=== PATIENT | male | born 1950 | race African-American/Black ===

== ENCOUNTER 2017-08-19 11:41 | Inpatient (IN) | payer MEDICARE, MEDICAID ==
[~2017-08-19] VITALS: Ht 175.3 cm; Wt 86.2 kg
[2017-08-19 12:53] LABS: ANION GAP 9 mmol/L (5-15); BLOOD UREA NITROGEN 13 mg/dL (7-18); CALCIUM 9.2 MG/DL (8.5-10.1); CARBON DIOXIDE 28 MMOL/L (21-32); CHLORIDE 102 MMOL/L (98-107); POTASSIUM 3.7 MMOL/L (3.5-5.1); SODIUM 139 MMOL/L (136-145)
[2017-08-19 12:56] LABS: BASOPHILS % (AUTO) 0.6 % (0.0-2.0); EOSINOPHILS % (AUTO) 1.4 % (0.0-3.0); HEMATOCRIT 41.8 % (42.0-52.0); HEMOGLOBIN 14.6 G/DL (14.2-18.0); MEAN CORPUSCULAR VOLUME 83 FL (80-99); MONOCYTES % (AUTO) 6.1 % (1.0-10.0); NEUTROPHILS % (AUTO) 56.9 % (45.0-75.0); PLATELET COUNT 181 K/UL (150-450); RED BLOOD COUNT 5.06 M/UL (4.70-6.10); RED CELL DISTRIBUTION WIDTH 12.6 % (11.6-14.8); WHITE BLOOD COUNT 12.8 K/UL (4.8-10.8)
[2017-08-19 12:58] VITALS: BP 115/69
[2017-08-19 12:58] LABS: ALANINE AMINOTRANSFERASE 15 U/L (12-78); ALBUMIN 3.6 G/DL (3.4-5.0); ALBUMIN/GLOBULIN RATIO 0.8 (1.0-2.7); ALKALINE PHOSPHATASE 89 U/L (46-116); ASPARTATE AMINO TRANSFERASE 17 U/L (15-37); BILIRUBIN,TOTAL 0.4 MG/DL (0.2-1.0); CREATINE KINASE 153 U/L (26-308)
--- NOTE | 2017-08-19 13:05 | Emergency Room Report ---
History of Present Illness General Chief Complaint: Seizure Source: Patient, EMS Present Illness HPI 67-year-old male brought from intermediate with witnessed seizure Per patient and EMS this is first time seizure states he had a stroke a few months ago with left him with left upper extremity weakness Unknown whether patient currently on antiepileptic He denies biting tongue, urinary incontinence states feels well otherwise Allergies: Coded Allergies: No Known Allergies (Unverified , 08/19/17) Patient History Past Medical History: CVA/TIA Past Surgical History: none Pertinent Family History: none Social History: Denies: smoking, alcohol use, drug use Immunizations: UTD Reviewed Nursing Documentation: PMH: Agreed; PSxH: Agreed Nursing Documentation-PMH Past Medical History: No History, Except For Hx Cardiac Problems: Yes - CAD Hx Hypertension: Yes Hx Cerebrovascular Accident: Yes - Left side Hx Seizures: Yes Review of Systems All Other Systems: negative except mentioned in HPI Physical Exam Vital Signs Date Time Temp Pulse Resp B/P (MAP) Pulse Ox O2 Delivery O2 Flow Rate FiO2 08/19/17 11:36 98.9 73 18 115/69 97 Room Air 99.0 Sp02 EP Interpretation: reviewed, normal General Appearance: normal inspection, well appearing, no apparent distress, alert, GCS 15, non-toxic Head: normocephalic, atraumatic Eyes: bilateral eye PERRL, bilateral eye EOMI ENT: normal ENT inspection, hearing grossly normal, normal pharynx, no angioedema, normal voice, TMs + canals normal, uvula midline, moist mucus membranes Neck: normal inspection, full range of motion, supple, thyroid normal, no meningismus, no bony tend Respiratory: normal inspection, lungs clear, normal breath sounds, no rhonchi, no respiratory distress, no retraction, no accessory muscle use, no wheezing, speaking full sentences Cardiovascular #1: regular rate, rhythm, no edema, no JVD, normal capillary refill Gastrointestinal: normal inspection, normal bowel sounds, non tender, soft, no mass, no peritonitis, non-distended, no guarding, no hernia, no pulsatile mass Genitourinary: no CVA tenderness Musculoskeletal: normal inspection, back normal, normal range of motion, no calf tenderness, pelvis stable, Ashley's Sign negative, other - left upper extremity atrophy Neurologic: normal inspection, alert, oriented x3, responsive, direct care provider III-XII nml as tested, motor strength/tone normal, cerebellar normal, normal gait, speech normal Psychiatric: normal inspection, judgement/insight normal, mood/affect normal, no suicidal/homicidal ideation, no delusions Skin: normal inspection, normal color, no rash Lymphatic: normal inspection, no adenopathy Medical Decision Making Diagnostic Impression: Primary Impression: Seizure disorder ER Course Vital signs stable, afebrile CT on my review shows atrophy, no acute CVA or hemorrhage New onset seizure likely due to previous CVA foci Patient was loaded with Keppra, will likely need to be on antiepileptics now Telemetry admission Per insurance Dr Lord endorsed 104pm EKG Diagnostic Results Rate: normal Rhythm: NSR ST Segments: no acute changes ASA given to the pt in ED: No Rhythm Strip Diag. Results EP Interpretation: yes Rate: 70 Rhythm: NSR, no PVC's, no ectopy Last Vital Signs Date Time Temp Pulse Resp B/P (MAP) Pulse Ox O2 Delivery O2 Flow Rate FiO2 08/19/17 11:36 98.9 73 18 115/69 97 Room Air 99.0 Status: improved Disposition: ADMITTED INPATIENT Condition: Serious Referrals: FEROZ SALCEDO (PCP) NISHA RUIZ M.D. Aug 19, 2017 13:05
--- NOTE | 2017-08-19 13:07 | Diagnostic Imaging Report ---
Indications: Seizure Technique: Spiral acquisitions obtained through the brain. Angled axial and coronal 5 x 5 mm slices were reconstructed. Total dose length product 1442.94 mGycm. CTDI vol(s) 70.38 mGy. Dose reduction achieved using automated exposure control Comparison: None. Findings: There is encephalomalacia in the right posterior temporal and occipital lobe, with resultant ex vacuo dilatation of the atrium and occipital horn of the right lateral ventricle. There is generalized ventriculomegaly as well as enlargement of the extra-axial CSF spaces. There is also encephalomalacia in the high right parietal region. No acute intracranial hemorrhage or edema. No mass effect or midline shift. Intact calvarium. Visualized orbits and sinuses are unremarkable. Impression: chronic and age-related changes, as described Negative for acute bleed or mass effect The CT scanner at [facility] is accredited by the [employer] and the scans are performed using protocols designed to limit radiation exposure to as low as reasonably achievable to attain images of sufficient resolution adequate for diagnostic evaluation.
--- NOTE | 2017-08-19 13:11 | Diagnostic Imaging Report ---
Indication: Cough Technique: One view of the chest Comparison: none Findings: Inspiration is suboptimal. Lungs and pleural spaces are clear. Heart size is normal Impression: Hypoventilatory exam. No acute process
[2017-08-19] MEDS ORDERED: levETIRAcetam 1,000mg/NS100ml 100 ML IVPB ONE (13:15)
[2017-08-19] MEDS ORDERED: ASPIRIN EC500 M1 ORAL (13:25)
[2017-08-19] MEDS ORDERED: LISINOPRIL10 MG ORAL (13:25)
[2017-08-19] MEDS ORDERED: METOPROLOL TART50 MG ORAL (13:25)
[2017-08-19] MEDS ORDERED: CRANBERRY450 M4 PO (13:25)
[2017-08-19] MEDS ORDERED: ATORVASTATIN CA20 MG ORAL (13:25)
[2017-08-19] MEDS ORDERED: AMLODIPINE BESY10 MG ORAL (13:25)
[2017-08-19] MEDS ORDERED: VALPROIC ACID250 MG PO (13:25)
[2017-08-19] MEDS ORDERED: INVEGA SUS234 MG/1.5 IM (13:25)
[2017-08-19] MEDS ORDERED: LEXAPRO20 MG ORAL (13:25)
[2017-08-19] MEDS ORDERED: MILK OF MA400 MG/51 ORAL (13:25)
[2017-08-19] MEDS ORDERED: RISPERDAL1 MG PO (13:25)
[2017-08-19 14:22] LABS: APPEARANCE,URINE CLEAR; BILIRUBIN, URINE NEGATIVE (NEGATIVE); COLOR,URINE PALE YELLOW; GLUCOSE, URINE (UA) NEGATIVE (NEGATIVE); KETONES,URINE NEGATIVE (NEGATIVE); LEUKOCYTE ESTERASE ,URINE NEGATIVE (NEGATIVE); NITRITE,URINE NEGATIVE (NEGATIVE); PH,URINE 8 (4.5-8.0); PROTEIN,URINE NEGATIVE (NEGATIVE); UROBILINOGEN,URINE NORMAL MG/DL (0.0-1.0)
[2017-08-19 14:30] VITALS: BP 109/60
[2017-08-19] MEDS ORDERED: Morphine Sulfate 4mg/ml Inj IVP PRN (14:45)
[2017-08-19] MEDS ORDERED: LORazepam Inj 2mg/ml 1ml IV PRN (14:45)
[2017-08-19] MEDS ORDERED: Miralax 17gm pkt ORAL PRN (14:45)
[2017-08-19] MEDS ORDERED: Zolpidem 5mg tab ORAL PRN (14:45)
[2017-08-19] MEDS ORDERED: Mylanta II UD 30ml ORAL PRN (14:45)
[2017-08-19 18:21] VITALS: BP 128/76
[2017-08-19 20:00] VITALS: BP 129/83
--- NOTE | 2017-08-19 20:15 | Consultation ---
Consult Note Consult Note NEUROLOGY CONSULTATION: Full note dictated #[id number] 67 y/o, RH, BM with PH of HTN and a stroke with left sided weakness a few years ago. He apparently had a seizure that he is unable to describe at his NH today and was thus hospitalized. ON EXAM: Problems with orientation, memory, VSF, HCF Mild dysarthria. Left VF deficit Left VII central Left UE plegia Left LE paresis Left agraphesthesia Left brisker DTRs Extensor left plantar. CT OF BRAIN with old right MCA infarct. IMPRESSION: New onset seizure - type unclear. Etiology most probably irritable right brain focus. REC: EEG Keppra 1 G q 12 hours. Labs for new onset seizure. Mobilize with PT/OT. Arnaud Kaur M.D., M.S.P.Ana. ARNAUD KAUR Aug 19, 2017 20:15
--- NOTE | 2017-08-19 20:45 | History and Physical Report ---
DATE OF ADMISSION: 08/19/2017 TIME: 2 p.m. FLOSSER: 1. Eduardo Kaur M.D. 2. Olga Lidia De Jesus M.D. CHIEF COMPLAINT: New onset of seizure. BRIEF HISTORY: This is a 67-year-old male from [facility] presented for new onset of seizure. He became unresponsive, but shortly thereafter came to [place], diagnosed with the above, and being admitted to telemetry for further care. Currently, calm in bed. No complaint. No chest pain. No shortness of breath. No nausea, vomiting, or diarrhea. PAST MEDICAL HISTORY: Include CVA with left-sided weakness, hypertension, and hyperlipidemia. PAST SURGICAL HISTORY: None. MEDICATIONS: Levetiracetam. ALLERGIES: Denies. SOCIAL HISTORY: No smoking. No alcohol. No intravenous drug abuse. FAMILY HISTORY: Noncontributory. PHYSICAL EXAMINATION: GENERAL: Calm in bed, oriented x2, and in no acute distress. VITAL SIGNS: Temperature is 99, pulse 73, respirations 18, and blood pressure 115/69. CARDIOVASCULAR: No murmurs. LUNGS: Distant and clear. ABDOMEN: Bowel sounds positive. Nontender and nondistended. EXTREMITIES: No cyanosis, clubbing, or edema. NEUROLOGIC: The patient moves all extremities, slightly weak. Left hand contraction noted. LABORATORY AND DIAGNOSTIC DATA: White count 12.8, otherwise CBC is normal. BMP shows BMP is normal. Urine toxicology is less than 2. Serum alcohol less than 3. ASSESSMENT: 1. New onset seizure. 2. CVA with left-sided weakness. 3. Hypertension. 4. Hyperlipidemia. 5. Encephalopathy. 6. Leukocytosis. PLAN: 1. Continue premeds. 2. OT, PT, and dietary evaluation. 3. CBC and BMP in the morning. 4. blood pressure control. 5. Dietary followup. 6. Dr. aKur and Dr. Mendoza to consult. 7. We will continue to follow this patient medically. Biju Santos D.O. DR: JILLIAN JOB#: [id number] CC:
[2017-08-19] MEDS: Heparin 5000 units/ml inj SUBQ SCH (21:54)
--- NOTE | 2017-08-19 22:00 | Consultation ---
DATE OF CONSULTATION: 08/19/2017 NEUROLOGY CONSULTATION CONSULTING PHYSICIAN: Eduardo Kaur M.D. REQUESTING PHYSICIAN: Biju Santos D.O. HISTORY: Mr. Lenard Kam is a 67-year-old, right-handed, black gentleman, who does have a past history of hypertension and a stroke with left-sided weakness a few years ago. He apparently lives in a group home where he was noted to have a seizure. The exact details of the seizure are unknown to us. However, following the seizure, he was sent to the [facility] emergency room. He has not had any further events since the event in his group home. He also denies any prior history of seizures. PAST MEDICAL HISTORY: Significant for high blood pressure and a stroke with left-sided weakness a few years ago. FAMILY HISTORY: Nothing significant as per the patient with no family history of seizures. PERSONAL HISTORY: Home: He lives in a group home. 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 Habits: He used to smoke for numerous years in the past, but has not smoked for few years now. He used to drink beer almost every day in the past, but has stopped drinking. He denies use of any illicit drugs. MEDICATIONS: Present medications include amlodipine, Prinivil, Risperdal, Lipitor, heparin for DVT prophylaxis, Mylanta p.r.n., Ambien p.r.n., Ativan p.r.n., Zofran p.r.n., MiraLAX p.r.n., Tylenol p.r.n. and morphine sulfate p.r.n. PHYSICAL EXAMINATION: GENERAL: He is a well-developed and well-nourished, black gentleman, lying in bed, in no acute distress. VITAL SIGNS: Pulse 65 per minute, blood pressure 128/76 mmHg, respirations 18 per minute, and temperature 97.3 degrees Fahrenheit. HEAD: Normocephalic and atraumatic. EENT: Examination benign. NECK: No neck rigidity was observed. NEUROLOGIC EXAMINATION: MENTAL STATUS EXAMINATION: He was awake and alert. He was oriented to self, hospital, and August 2017. He did not know the name of the hospital or the exact date. He was able to recall 3/3 words immediately, but could only remember 2/3 words in 1 minute and 3 minutes even on the second trial. He was able to remember presidents, Trump and Obama spontaneously, but he needed hints to remember through Reynolds Senior. His mathematical skills were impaired. His visuospatial function was also impaired. SPEECH: He had a mild dysarthria. LANGUAGE: He had anomia for low-frequency words. CRANIAL NERVE EXAMINATION: II: He had a left visual field deficit on confrontation testing. III, IV & : External ocular movements were full and the pupils 3 mm in diameter, equal, round, regular, and reactive to light. V: He had normal facial sensations, and the temporales, masseters, and pterygoids functioned normally. VII: He had a left seventh central facial paresis. VIII: He was able to hear well bilaterally and had no nystagmus. IX: The palate moved symmetrically on phonation. X: He had no hoarseness of voice. XI: The sternocleidomastoids and trapezii functioned normally. XII: The tongue was in the midline without any fasciculations or atrophy. MOTOR SYSTEM: The tone was increased on the left side with a significant degree of spasticity. Examination of muscle mass revealed significant wasting of his left upper extremity with contractures at the fingers and elbow. Examination of power was difficult to perform because of varying degrees of effort, but he had a definite left upper extremity plegia, left lower extremity paresis and mild right lower extremity paresis. SENSORY EXAMINATION: He responded appropriately to deep pain. He also was able to discern between pinprick and light touch. COORDINATION: He performed well on [id number] on the right side. He was unable to perform on the left side. REFLEXES: Trace+ on the right and 1+ on the left at the biceps, triceps, and brachioradialis. Trace+ on the left and 2+ on the right at the knees, 0 at both ankles. The plantar response was flexor on the right and extensor on the left. STANCE & GAIT: Could not be tested. DIAGNOSTIC IMPRESSION: 1. Mr. Lenard Kam is a 67-year-old, right-handed, black gentleman, with a past history of hypertension and cerebrovascular disease with stroke with left-sided weakness a few years ago who apparently had a seizure at his group home on 08/19/2017. The type of seizure is unknown to us, as it has not been described to us. 2. On neurological examination, at this time, he does demonstrate problems with orientation, recent and remote memory, visuospatial function, higher cognitive function, and language. He also has a dysarthria, left visual field deficit, left seventh central facial paresis, left upper greater than lower extremity paresis, mild right lower extremity paresis, left-sided agraphesthesia, brisk deep tendon reflexes on the left compared to the right, but the reflexes are globally diminished and an extensor plantar response on the left side. 3. The CT scan of the brain without contrast reveals an old right middle cerebral artery territory infarct. 4. Laboratory data obtained thus far revealed a CBC with a WBC count elevated to 12,800. A chemistry panel that is relatively benign. Negative urine toxicology screen and negative urine analysis. 5. The patient's history and neurological examination are most compatible with a new onset seizure, most probably focal with secondary generalization. However, the exact type is unclear to us at the exact description of the seizure was not given to us. The most likely etiology for the seizure would be an irritable epileptogenic focus in the area where he had his prior stroke. RECOMMENDATIONS: 1. Agree with management thus far. 2. An EEG will be ordered to evaluate the patient for interictal or ictal phenomena. 3. The patient will be started on Keppra 1 g q.12 h. for seizure prophylaxis. 4. He should be worked up thoroughly for other treatable causes of new onset seizure. 5. He should be mobilized with physical and occupational therapy. Thank you for entrusting me with the care of Mr. Kam. I shall follow him with you. Eduardo Kaur M.D., M.S.P.H. DR: LAUREN JOB#: [id number] MTDCecilia
[2017-08-20] VITALS (7 sets, daily range): BP systolic 113–135; BP diastolic 69–86
[2017-08-20] MEDS ORDERED: LORazepam 1mg tab ORAL PRN (03:45)
--- NOTE | 2017-08-20 05:00 | Consultation ---
DATE OF CONSULTATION: 08/20/2017 INITIAL PSYCHIATRIC EVALUATION CONSULTING PHYSICIAN: Olga Lidia De Jesus M.D. HISTORY OF PRESENT ILLNESS: The patient is a 67-year-old male patient with new onset seizure disorder. This patient came into the hospital very confused and disorganized. He is status post seizure was over and the patient was living in [facility] and he said he randomly had a seizure, passed out, and he said he had no recollection of what happened after he woke up, but he said he has had that before, now he has altered mental status and confusion. His cognition has declined below baseline, secondary to stress of his medical illness. That is why, his attending physician has requested daily psychiatric consultation. He is calm and pleasant on interview, but slightly confused and he does endorse auditory hallucinations and paranoia. SOCIAL HISTORY: Lives in [facility]. Financially supported by [address] and Medicare. MEDICAL PROBLEMS: Include hypertension, hyperlipidemia, and status post CVA. ALLERGIES: He said he has no known drug allergies. SUBSTANCE ABUSE HISTORY: Denies drug and alcohol use. FAMILY PSYCHIATRIC HISTORY: Denies. Pain assessment 0/10. Developmental problems, no known developmental problems. STRENGTHS: He is moderately better and he has a place to live. WEAKNESSES: He has poor support system. MENTAL STATUS EXAMINATION: Appearance is disheveled. Attitude, irritable and agitated. Affect, guarded and restricted. Intellect poor. Mood depressed and anxious. Motor activity, psychomotor retardation. As far as his , this patient's appearance is disheveled. Attitude, irritable and agitated. Thought process is slightly disorganized. Thought content, paranoia. Insight and judgment is poor. DIAGNOSES: 1. Paranoid schizophrenia with acute exacerbation. 2. Medical problems, hyperlipidemia, hypertension, seizure disorder. 3. Psychosocial stressors, financial. PLAN: As far this patient's plan, I am going to treat this patient with Risperdal 1 mg by mouth daily for psychosis, agitation, and mood lability. Also, add Depakote 250 mg twice a day to act as a mood stabilizer, but also prevent seizure prophylaxis. Also, Ativan 1 mg every six hours p.r.n. anxiety and agitation. A 20 minutes of supportive therapy is provided. Chart reviewed and discussed with staff. I would like to thank, Dr. Biju Santos, for this interesting consultation. Olga Lidia De Jesus M.D. DR: GIANNA JOB#: [id number] CC:
[2017-08-20 07:58] LABS: BASOPHILS % (AUTO) 0.5 % (0.0-2.0); EOSINOPHILS % (AUTO) 2.3 % (0.0-3.0); HEMATOCRIT 39.1 % (42.0-52.0); HEMOGLOBIN 14.2 G/DL (14.2-18.0); LYMPHOCYTES % (AUTO) 35.7 % (20.0-45.0); MEAN CORPUSCULAR VOLUME 82 FL (80-99); MONOCYTES % (AUTO) 4.5 % (1.0-10.0); PLATELET COUNT 169 K/UL (150-450); RED BLOOD COUNT 4.76 M/UL (4.70-6.10); RED CELL DISTRIBUTION WIDTH 12.7 % (11.6-14.8); WHITE BLOOD COUNT 8.9 K/UL (4.8-10.8)
[2017-08-20 08:20] LABS: ALANINE AMINOTRANSFERASE 18 U/L (12-78); ALBUMIN 3.4 G/DL (3.4-5.0); ALBUMIN/GLOBULIN RATIO 0.7 (1.0-2.7); ALKALINE PHOSPHATASE 94 U/L (46-116); ANION GAP 5 mmol/L (5-15); ASPARTATE AMINO TRANSFERASE 15 U/L (15-37); BILIRUBIN,TOTAL 0.5 MG/DL (0.2-1.0); BLOOD UREA NITROGEN 13 mg/dL (7-18); CALCIUM 9.1 MG/DL (8.5-10.1); CARBON DIOXIDE 29 MMOL/L (21-32); CHLORIDE 103 MMOL/L (98-107); POTASSIUM 3.3 MMOL/L (3.5-5.1); SODIUM 137 MMOL/L (136-145)
[2017-08-20] MEDS: Depakote ER 250mg tab ORAL SCH ×2 (08:58→21:29)
[2017-08-20] MEDS: Heparin 5000 units/ml inj SUBQ SCH ×2 (09:00→21:30)
[2017-08-20] MEDS ORDERED: Lisinopril 20mg tab ORAL SCH (09:00)
--- NOTE | 2017-08-20 13:00 | Consultation ---
History of Present Illness General Date patient seen: Aug 20, 2017 Chief Complaint: Seizure Referring physician: Dr. Santos Reason for Consultation: emphysema, inpatient management, Present Illness HPI 67-year-old male with hx HTN, CVA, left sided weakness, [facility] resident brought in from [facility] with witnessed seizure. Upon arrival to ER he was awake and asymptomatic. He is admitted to telemetry for further w/u. Allergies: Coded Allergies: No Known Allergies (Unverified , 08/19/17) Medication History Scheduled Amlodipine Besylate* (Amlodipine Besylate*), 10 MG ORAL DAILY, (Reported) Aspirin (Aspirin Ec), 325 MG ORAL DAILY, (Reported) Atorvastatin Calcium* (Atorvastatin Calcium*), 10 MG ORAL BEDTIME, (Reported) Cranberry Fruit Concentrate (Cranberry), 450 MG PO DAILY, (Reported) Escitalopram Oxalate* (Lexapro*), 20 MG ORAL DAILY, (Reported) Lisinopril* (Lisinopril*), 20 MG ORAL DAILY, (Reported) Magnesium Hydroxide* (Milk Of Magnesia*), 30 ML ORAL DAILY, (Reported) Metoprolol Tartrate* (Metoprolol Tartrate*), 50 MG ORAL EVERY 12 HOURS, ( Reported) Paliperidone Palmitate (Invega Sustenna), 234 MG IM every , (Reported) Risperidone* (Risperdal*), 1 MG PO DAILY, (Reported) Valproic Acid (Valproic Acid), 250 MG PO BID, (Reported) Patient History Healthcare decision maker Resuscitation status Full Code Advanced Directive on File Past Medical/Surgical History Past Medical/Surgical History: (1) Hypertension (2) History of CVA (cerebrovascular accident) Review of Systems All Other Systems: negative except mentioned in HPI Physical Exam General Appearance: WD/WN Lines, tubes and drains: peripheral HEENT: normocephalic, atraumatic Neck: non-tender, normal alignment Respiratory/Chest: chest wall non-tender, lungs clear Cardiovascular/Chest: normal peripheral pulses, normal rate Abdomen: normal bowel sounds, non tender Genitourinary/Rectal: normal genital exam Extremities: normal range of motion Skin Exam: normal pigmentation 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 normal Last 24 Hour Vital Signs Date Time Temp Pulse Resp B/P (MAP) Pulse Ox O2 Delivery O2 Flow Rate FiO2 08/20/17 08:58 125/74 08/20/17 08:58 78 125/74 08/20/17 08:00 97.0 78 18 125/74 97 Room Air 97.0 08/20/17 04:00 97.2 68 18 131/69 95 Room Air 97.2 08/20/17 04:00 67 08/20/17 00:00 97.0 66 18 113/69 95 Room Air 97.0 08/20/17 00:00 80 08/19/17 20:00 97.0 71 22 129/83 98 Room Air 97.0 08/19/17 20:00 61 08/19/17 18:21 97.3 65 18 128/76 98 Room Air 97.3 08/19/17 16:00 57 08/19/17 14:30 98.1 65 18 109/60 97 Room Air 98.1 08/19/17 12:58 73 18 Room Air 08/19/17 12:58 99.0 18 115/69 97 Room Air 99.0 Intake and Output 08/19/17 08/20/17 19:00 07:00 Intake Total 0 ml 120 ml Output Total 600 ml Balance 0 ml -480 ml Intake Oral 0 ml 120 ml Output Urine Total 600 ml # Voids 1 # Bowel Movements 1 Laboratory Tests Test 08/19/17 13:50 08/20/17 07:40 Urine Color Pale yellow Urine Appearance Clear Urine pH 8 (4.5-8.0) Urine Specific [place] 1.015 (1.005-1.035) Urine Protein Negative (NEGATIVE) Urine Glucose (UA) Negative (NEGATIVE) Urine Ketones Negative (NEGATIVE) Urine Occult Blood Negative (NEGATIVE) Urine Nitrite Negative (NEGATIVE) Urine Bilirubin Negative (NEGATIVE) Urine Urobilinogen Normal MG/DL (0.0-1.0) Urine Leukocyte Esterase Negative (NEGATIVE) Urine Opiates Screen Negative (NEGATIVE) Urine Barbiturates Screen Negative (NEGATIVE) Phencyclidine (PCP) Screen Negative (NEGATIVE) Urine Amphetamines Screen Negative (NEGATIVE) Urine Benzodiazepines Screen Negative (NEGATIVE) Urine Cocaine Screen Negative (NEGATIVE) Urine Marijuana (THC) Screen Negative (NEGATIVE) White Blood Count 8.9 K/UL (4.8-10.8) Red Blood Count 4.76 M/UL (4.70-6.10) Hemoglobin 14.2 G/DL (14.2-18.0) Hematocrit 39.1 % (42.0-52.0) L Mean Corpuscular Volume 82 FL (80-99) Mean Corpuscular Hemoglobin 29.8 PG (27.0-31.0) Mean Corpuscular Hemoglobin Concent 36.2 G/DL (32.0-36.0) H Red Cell Distribution Width 12.7 % (11.6-14.8) Platelet Count 169 K/UL (150-450) Mean Platelet Volume 8.5 FL (6.5-10.1) Neutrophils (%) (Auto) 57.0 % (45.0-75.0) Lymphocytes (%) (Auto) 35.7 % (20.0-45.0) Monocytes (%) (Auto) 4.5 % (1.0-10.0) Eosinophils (%) (Auto) 2.3 % (0.0-3.0) Basophils (%) (Auto) 0.5 % (0.0-2.0) Sodium Level 137 MMOL/L (136-145) Potassium Level 3.3 MMOL/L (3.5-5.1) L Chloride Level 103 MMOL/L (98-107) Carbon Dioxide Level 29 MMOL/L (21-32) Anion Gap 5 mmol/L (5-15) Blood Urea Nitrogen 13 mg/dL (7-18) Creatinine 1.0 MG/DL (0.55-1.30) Estimat Glomerular Filtration Rate > 60 mL/min (>60) Glucose Level 138 MG/DL (74-106) H Calcium Level 9.1 MG/DL (8.5-10.1) Total Bilirubin 0.5 MG/DL (0.2-1.0) Aspartate Amino Transf (AST/SGOT) 15 U/L (15-37) Alanine Aminotransferase (ALT/SGPT) 18 U/L (12-78) Alkaline Phosphatase 94 U/L (46-116) Total Protein 8.1 G/DL (6.4-8.2) Albumin 3.4 G/DL (3.4-5.0) Globulin 4.7 g/dL Albumin/Globulin Ratio 0.7 (1.0-2.7) L Vitamin D 25-Hydroxy Pending 25-Hydroxy Vitamin D2 Pending 25-Hydroxy Vitamin D3 Pending Rapid Plasma Reagin Pending Height (Feet): 5 Height (Inches): 9.00 Weight (Pounds): 190 Medications Current Medications Medications (Trade) Dose Ordered Sig/Rustam Route PRN Reason Start Time Stop Time Status Last Admin Dose Admin Acetaminophen (Tylenol) 650 mg Q4H PRN ORAL fever 08/19/17 14:45 09/18/17 14:44 Al Hydroxide/Mg Hydroxide (Mylanta II) 30 ml Q6H PRN ORAL dyspepsia 08/19/17 14:45 09/18/17 14:44 Amlodipine Besylate (Norvasc) 10 mg DAILY ORAL 08/20/17 09:00 09/19/17 08:59 08/20/17 08:58 Atorvastatin Calcium (Lipitor) 10 mg BEDTIME ORAL 08/19/17 21:00 09/18/17 20:59 08/19/17 21:55 Dextrose (Dextrose 50%) 25 ml STAT PRN IV BS 60-69mg/dl 08/19/17 15:00 09/18/17 14:59 Dextrose (Dextrose 50%) 50 ml STAT PRN IV BS less than 60mg/dl 08/19/17 14:45 09/18/17 14:44 Divalproex Sodium (Depakote ER) 250 mg EVERY 12 HOURS ORAL 08/20/17 09:00 09/19/17 08:59 08/20/17 08:58 Heparin Sodium (Porcine) (Heparin 5000 units/ml) 5,000 units EVERY 12 HOURS SUBQ 08/19/17 21:00 09/18/17 20:59 08/20/17 09:00 Lisinopril (Prinivil) 20 mg DAILY ORAL 08/20/17 09:00 09/19/17 08:59 08/20/17 08:58 Lorazepam (Ativan 2mg/ml 1ml) 2 mg EVERY HOUR PRN IV seizures 08/19/17 14:45 08/26/17 14:44 Lorazepam (Ativan) 1 mg Q6H PRN ORAL For Anxiety 08/20/17 03:45 08/27/17 03:44 Morphine Sulfate (Morphine Sulfate) 1 mg EVERY 4 HOURS PRN IVP For Pain 08/19/17 14:45 08/26/17 14:44 Ondansetron HCl (Zofran) 4 mg Q6H PRN IVP Nausea & Vomiting 08/19/17 14:45 09/18/17 14:44 Polyethylene Glycol (Miralax) 17 gm HSPRN PRN ORAL Constipation 08/19/17 14:45 09/18/17 14:44 Potassium Chloride (K-Dur) 40 meq ONCE ONCE ORAL 08/20/17 13:00 08/20/17 13:01 08/20/17 12:40 Risperidone (RisperDAL) 1 mg DAILY ORAL 08/20/17 09:00 09/19/17 08:59 08/20/17 08:58 Zolpidem Tartrate (Ambien) 5 mg HSPRN PRN ORAL Insomnia 08/19/17 14:45 08/26/17 14:44 Assessment/Plan Problem List: (1) Seizure disorder ICD Codes: G40.909 - Epilepsy, unspecified, not intractable, without status epilepticus SNOMED: 195966919 (2) COPD (chronic obstructive pulmonary disease) ICD Codes: J44.9 - Chronic obstructive pulmonary disease, unspecified SNOMED: 08134547 (3) Left-sided weakness ICD Codes: R53.1 - Weakness SNOMED: 128108202 (4) Hypertension ICD Codes: I10 - Essential (primary) hypertension SNOMED: 14427953 (5) History of CVA (cerebrovascular accident) ICD Codes: Z86.73 - Personal history of transient ischemic attack (TIA), and cerebral infarction without residual deficits SNOMED: 924465133 Assessment/Plan telemetry monitoring Valium IV prn neuro evaluatin respiratory treatment titrate fio2 to sat of 92% swallow study dvt prophylaxis. Dahlia Lord MD Aug 20, 2017 13:00
--- NOTE | 2017-08-20 14:10 | General Progress Note ---
Assessment/Plan Problem List: (1) Hypertension ICD Codes: I10 - Essential (primary) hypertension SNOMED: 26521297 (2) History of CVA (cerebrovascular accident) ICD Codes: Z86.73 - Personal history of transient ischemic attack (TIA), and cerebral infarction without residual deficits SNOMED: 961008002 (3) COPD (chronic obstructive pulmonary disease) ICD Codes: J44.9 - Chronic obstructive pulmonary disease, unspecified SNOMED: 01140245 (4) Seizure disorder ICD Codes: G40.909 - Epilepsy, unspecified, not intractable, without status epilepticus SNOMED: 138795643 (5) Left-sided weakness ICD Codes: R53.1 - Weakness SNOMED: 222537939 Status: unchanged Assessment/Plan ot pt diet cbc bmp am seizure control dc plan Subjective Constitutional: Reports: weakness Allergies: Coded Allergies: No Known Allergies (Unverified , 08/19/17) All Systems: reviewed and negative except above Subjective calm in bed no seizure last night Objective Last 24 Hour Vital Signs Date Time Temp Pulse Resp B/P (MAP) Pulse Ox O2 Delivery O2 Flow Rate FiO2 08/20/17 08:58 125/74 08/20/17 08:58 78 125/74 08/20/17 08:00 97.0 78 18 125/74 97 Room Air 97.0 08/20/17 04:00 97.2 68 18 131/69 95 Room Air 97.2 08/20/17 04:00 67 08/20/17 00:00 97.0 66 18 113/69 95 Room Air 97.0 08/20/17 00:00 80 08/19/17 20:00 97.0 71 22 129/83 98 Room Air 97.0 08/19/17 20:00 61 08/19/17 18:21 97.3 65 18 128/76 98 Room Air 97.3 08/19/17 16:00 57 08/19/17 14:30 98.1 65 18 109/60 97 Room Air 98.1 Intake and Output 08/19/17 08/20/17 19:00 07:00 Intake Total 0 ml 120 ml Output Total 600 ml Balance 0 ml -480 ml Intake Oral 0 ml 120 ml Output Urine Total 600 ml # Voids 1 # Bowel Movements 1 Laboratory Tests 08/20/17 07:40: White Blood Count 8.9, Red Blood Count 4.76, Hemoglobin 14.2, Hematocrit 39.1L, Mean Corpuscular Volume 82, Mean Corpuscular Hemoglobin 29.8, Mean Corpuscular Hemoglobin Concent 36.2H, Red Cell Distribution Width 12.7, Platelet Count 169, Mean Platelet Volume 8.5, Neutrophils (%) (Auto) 57.0, Lymphocytes (%) (Auto) 35.7, Monocytes (%) (Auto) 4.5, Eosinophils (%) (Auto) 2.3, Basophils (%) (Auto ) 0.5, Sodium Level 137, Potassium Level 3.3L, Chloride Level 103, Carbon Dioxide Level 29, Anion Gap 5, Blood Urea Nitrogen 13, Creatinine 1.0, Estimat Glomerular Filtration Rate > 60, Glucose Level 138H, Calcium Level 9.1, Total Bilirubin 0.5, Aspartate Amino Transf (AST/SGOT) 15, Alanine Aminotransferase ( ALT/SGPT) 18, Alkaline Phosphatase 94, Total Protein 8.1, Albumin 3.4, Globulin 4.7, Albumin/Globulin Ratio 0.7L, Vitamin D 25-Hydroxy [Pending], 25-Hydroxy Vitamin D2 [Pending], 25-Hydroxy Vitamin D3 [Pending], Rapid Plasma Reagin [ Pending] Height (Feet): 5 Height (Inches): 9.00 Weight (Pounds): 190 General Appearance: lethargic EENT: normal ENT inspection Neck: normal alignment Cardiovascular: normal peripheral pulses, normal rate, regular rhythm Respiratory/Chest: chest wall non-tender, lungs clear, normal breath sounds Abdomen: normal bowel sounds, non tender, soft Extremities: normal inspection Edema: no edema noted Arm (L), no edema noted Arm (R), no edema noted Leg (L), no edema noted Leg (R), no edema noted Pedal (L), no edema noted Pedal (R), no edema noted Generalized Neurologic: responsive, motor weakness Skin: normal pigmentation, warm/dry FEROZ SALCEDO Aug 20, 2017 14:10
--- NOTE | 2017-08-20 14:57 | Cardiology Report ---
APPROVED REPORT EKG Measurement Heart [id number] Normal sinus rhythm Nonspecific ST and T wave abnormality Prolonged QT Abnormal ECG
--- NOTE | 2017-08-20 18:37 | Neurology Progress Note ---
Interim History Interim History Interim History Mr. Weinberg feels well. He has had no further seizures. He has tolerated the Keppra well. He denies any new neurologic symptoms. He specifically denies any weakness on one side or the other, numbness on one side or the other, problems with speech, problems with language, or problems with vision. Review of Systems Neuro Review of Systems Benign. Objective Physical Exam Last Vital Signs Date Time Temp Pulse Resp B/P (MAP) Pulse Ox O2 Delivery O2 Flow Rate FiO2 08/20/17 16:00 95 08/20/17 16:00 97.0 20 135/86 98 Room Air 97.0 Laboratory Tests Test 08/20/17 07:40 White Blood Count 8.9 K/UL (4.8-10.8) Red Blood Count 4.76 M/UL (4.70-6.10) Hemoglobin 14.2 G/DL (14.2-18.0) Hematocrit 39.1 % (42.0-52.0) L Mean Corpuscular Volume 82 FL (80-99) Mean Corpuscular Hemoglobin 29.8 PG (27.0-31.0) Mean Corpuscular Hemoglobin Concent 36.2 G/DL (32.0-36.0) H Red Cell Distribution Width 12.7 % (11.6-14.8) Platelet Count 169 K/UL (150-450) Mean Platelet Volume 8.5 FL (6.5-10.1) Neutrophils (%) (Auto) 57.0 % (45.0-75.0) Lymphocytes (%) (Auto) 35.7 % (20.0-45.0) Monocytes (%) (Auto) 4.5 % (1.0-10.0) Eosinophils (%) (Auto) 2.3 % (0.0-3.0) Basophils (%) (Auto) 0.5 % (0.0-2.0) Sodium Level 137 MMOL/L (136-145) Potassium Level 3.3 MMOL/L (3.5-5.1) L Chloride Level 103 MMOL/L (98-107) Carbon Dioxide Level 29 MMOL/L (21-32) Anion Gap 5 mmol/L (5-15) Blood Urea Nitrogen 13 mg/dL (7-18) Creatinine 1.0 MG/DL (0.55-1.30) Estimat Glomerular Filtration Rate > 60 mL/min (>60) Glucose Level 138 MG/DL (74-106) H Calcium Level 9.1 MG/DL (8.5-10.1) Total Bilirubin 0.5 MG/DL (0.2-1.0) Aspartate Amino Transf (AST/SGOT) 15 U/L (15-37) Alanine Aminotransferase (ALT/SGPT) 18 U/L (12-78) Alkaline Phosphatase 94 U/L (46-116) Total Protein 8.1 G/DL (6.4-8.2) Albumin 3.4 G/DL (3.4-5.0) Globulin 4.7 g/dL Albumin/Globulin Ratio 0.7 (1.0-2.7) L Vitamin D 25-Hydroxy Pending 25-Hydroxy Vitamin D2 Pending 25-Hydroxy Vitamin D3 Pending Rapid Plasma Reagin Pending Neurologic Exam Objective PHYSICAL EXAMINATION: GENERAL: He is a well-developed and well-nourished, black gentleman, lying in bed, in no acute distress. HEAD: Normocephalic and atraumatic. EENT: Examination benign. NECK: No neck rigidity was observed. NEUROLOGIC EXAMINATION: MENTAL STATUS EXAMINATION: He was awake and alert. He was oriented to [facility], [facility], and August 2017. He did not know the exact date. He was able to recall 3/3 words immediately, but could only remember 2/3 words in 1 minute and 3 minutes. He was able to remember presidents, Trump and Obama spontaneously, but he needed hints to remember through [employer] Senior. His mathematical skills were impaired. His visuospatial function was also impaired. SPEECH: He had a mild dysarthria. LANGUAGE: He had anomia for low-frequency words. CRANIAL NERVE EXAMINATION: II: He had a left visual field deficit on confrontation testing. III, IV & : External ocular movements were full and the pupils 3 mm in diameter, equal, round, regular, and reactive to light. V: He had normal facial sensations, and the temporales, masseters, and pterygoids functioned normally. VII: He had a left seventh central facial paresis. VIII: He was able to hear well bilaterally and had no nystagmus. IX: The palate moved symmetrically on phonation. X: He had no hoarseness of voice. XI: The sternocleidomastoids and trapezii functioned normally. XII: The tongue was in the midline without any fasciculations or atrophy. MOTOR SYSTEM: The tone was increased on the left side with a significant degree of spasticity. Examination of muscle mass revealed significant wasting of his left upper extremity with contractures at the fingers and elbow. Examination of power was difficult to perform because of varying degrees of effort, but he had a definite left upper extremity plegia, left lower extremity paresis and mild right lower extremity paresis. SENSORY EXAMINATION: He was able to discern between pinprick and light touch. COORDINATION: He performed well on [id number] on the right side. He was unable to perform on the left side. REFLEXES: Trace+ on the right and 1+ on the left at the biceps, triceps, and brachioradialis. Trace+ on the left and 2+ on the right at the knees, 0 at both ankles. The plantar response was flexor on the right and extensor on the left. STANCE & GAIT: Could not be tested. Impression/Recommendations Diagnostic Impression 1. Mr. Lenard Kam is a 67-year-old, right-handed, black gentleman, with a past history of hypertension and cerebrovascular disease with stroke with left- sided weakness a few years ago who apparently had a seizure at his care home on 08/19/2017. The type of seizure is unknown to us, as it has not been described to us. 2. He feels well. He has had no further seizures. He has tolerated the Keppra well. He denies any new neurologic symptoms. 3. On neurological examination, at this time, he does demonstrate problems with orientation, recent and remote memory, visuospatial function, higher cognitive function, and language. He also has a dysarthria, left visual field deficit, left seventh central facial paresis, left upper greater than lower extremity paresis, mild right lower extremity paresis, left-sided agraphesthesia, brisk deep tendon reflexes on the left compared to the right, but the reflexes are globally diminished and an extensor plantar response on the left side. 4. The CT scan of the brain without contrast reveals an old right middle cerebral artery territory infarct. 5. Laboratory data obtained thus far revealed a CBC with a WBC count elevated to 12,800. A chemistry panel that is relatively benign. Negative urine toxicology screen and negative urine analysis. 6. The patient's history and neurological examination are most compatible with a new onset seizure, most probably focal with secondary generalization. However , the exact type is unclear to us at the exact description of the seizure was not given to us. The most likely etiology for the seizure would be an irritable epileptogenic focus in the area where he had his prior stroke. Recommendations 1. Continue present management. 2. Await EEG to evaluate the patient for interictal or ictal phenomena. 3. PT/OT to mobilize. 4. Observe. Arnaud Montana M.D., M.S.Zhang.Ana. ARNAUD MONTANA Aug 20, 2017 18:37
[2017-08-20] MEDS ORDERED: LORazepam Inj 2mg/ml 1ml IV PRN (22:00)
[2017-08-21] MEDS ORDERED: Morphine Sulfate 4mg/ml Inj IVP PRN ×2 (01:00→17:00)
[2017-08-21] MEDS ORDERED: Mylanta II UD 30ml ORAL PRN ×2 (02:45→15:30)
[2017-08-21] MEDS ORDERED: LORazepam 1mg tab ORAL PRN ×2 (03:45→15:45)
[2017-08-21 04:00] VITALS: BP 150/80
[2017-08-21 08:00] VITALS: BP 133/86
[2017-08-21 08:29] LABS: BASOPHILS % (AUTO) 0.5 % (0.0-2.0); EOSINOPHILS % (AUTO) 1.4 % (0.0-3.0); HEMATOCRIT 39.5 % (42.0-52.0); HEMOGLOBIN 13.7 G/DL (14.2-18.0); LYMPHOCYTES % (AUTO) 30.1 % (20.0-45.0); MEAN CORPUSCULAR VOLUME 83 FL (80-99); MONOCYTES % (AUTO) 4.9 % (1.0-10.0); NEUTROPHILS % (AUTO) 63.1 % (45.0-75.0); PLATELET COUNT 166 K/UL (150-450); RED BLOOD COUNT 4.78 M/UL (4.70-6.10); RED CELL DISTRIBUTION WIDTH 12.8 % (11.6-14.8); WHITE BLOOD COUNT 10.2 K/UL (4.8-10.8)
[2017-08-21 08:47] LABS: ANION GAP 10 mmol/L (5-15); BLOOD UREA NITROGEN 15 mg/dL (7-18); CALCIUM 9.3 MG/DL (8.5-10.1); CARBON DIOXIDE 27 MMOL/L (21-32); CHLORIDE 104 MMOL/L (98-107); CREATININE 0.9 MG/DL (0.55-1.30); POTASSIUM 3.4 MMOL/L (3.5-5.1); SODIUM 141 MMOL/L (136-145)
[2017-08-21] MEDS ORDERED: Heparin 5000 units/ml inj SUBQ SCH (09:00)
[2017-08-21] MEDS ORDERED: Depakote ER 250mg tab ORAL SCH (09:00)
[2017-08-21] MEDS ORDERED: Lisinopril 20mg tab ORAL SCH (09:00)
[2017-08-21 11:48] VITALS: BP 147/92
--- NOTE | 2017-08-21 12:03 | Pulmonology Progress Note ---
Assessment/Plan Problems: (1) Tachycardia (2) Seizure disorder (3) COPD (chronic obstructive pulmonary disease) (4) Left-sided weakness (5) Hypertension (6) History of CVA (cerebrovascular accident) Assessment/Plan pt is tachycardic, at 130, regular EkG stat, awaiting for video swallow study monitor BP, symptomatic treatment f/u Neurology recommendations for seizure dvt prophylaxis Subjective ROS Limited/Unobtainable: No Constitutional: Reports: no symptoms HEENT: Repors: no symptoms Respiratory: Reports: no symptoms Allergies: Coded Allergies: No Known Allergies (Unverified , 08/19/17) Objective Last 24 Hour Vital Signs Date Time Temp Pulse Resp B/P (MAP) Pulse Ox O2 Delivery O2 Flow Rate FiO2 08/21/17 11:48 98.6 133 20 147/92 96 Room Air 98.6 08/21/17 08:43 133/86 08/21/17 08:43 110 133/86 08/21/17 08:00 98.3 110 20 133/86 96 Room Air 98.3 08/21/17 04:00 98.2 98 18 150/80 97 Room Air 98.2 08/20/17 22:00 98.3 94 18 128/76 95 Room Air 98.3 08/20/17 20:00 98.1 104 16 132/80 96 98.1 08/20/17 20:00 96 Room Air 08/20/17 20:00 102 08/20/17 16:00 95 08/20/17 16:00 97.0 94 20 135/86 98 Room Air 97.0 08/20/17 12:00 74 08/20/17 12:00 98.1 74 20 134/84 97 Room Air 98.1 Intake and Output 08/20/17 08/21/17 19:00 07:00 Intake Total 480 ml Output Total 300 ml 350 ml Balance 180 ml -350 ml Intake Oral 480 ml Output Urine Total 300 ml 350 ml # Voids 2 General Appearance: WD/WN HEENT: normocephalic, atraumatic Respiratory/Chest: chest wall non-tender, lungs clear, normal breath sounds Cardiovascular: normal rate, regular rhythm, regularly irregular Abdomen: normal bowel sounds, soft, non tender Genitourinary: normal external genitalia Extremities: no clubbing Skin: no lesions 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 Complete 08/19/17 13:50 Rectum VRE Culture - Final NO VANCOMYCIN RESISTANT ENTEROCOCCUS ... Complete Laboratory Tests 08/21/17 07:50: White Blood Count 10.2, Red Blood Count 4.78, Hemoglobin 13.7L, Hematocrit 39.5L , Mean Corpuscular Volume 83, Mean Corpuscular Hemoglobin 28.6, Mean Corpuscular Hemoglobin Concent 34.6, Red Cell Distribution Width 12.8, Platelet Count 166, Mean Platelet Volume 8.1, Neutrophils (%) (Auto) 63.1, Lymphocytes (% ) (Auto) 30.1, Monocytes (%) (Auto) 4.9, Eosinophils (%) (Auto) 1.4, Basophils ( %) (Auto) 0.5, Sodium Level 141, Potassium Level 3.4L, Chloride Level 104, Carbon Dioxide Level 27, Anion Gap 10, Blood Urea Nitrogen 15, Creatinine 0.9, Estimat Glomerular Filtration Rate > 60, Glucose Level 150H, Calcium Level 9.3 Current Medications Medications (Trade) Dose Ordered Sig/Rustam Route PRN Reason Start Time Stop Time Status Last Admin Dose Admin Acetaminophen (Tylenol) 650 mg Q4H PRN ORAL fever 08/20/17 22:45 09/18/17 14:44 Al Hydroxide/Mg Hydroxide (Mylanta II) 30 ml Q6H PRN ORAL dyspepsia 08/21/17 02:45 09/18/17 14:44 Amlodipine Besylate (Norvasc) 10 mg DAILY ORAL 08/21/17 09:00 09/19/17 08:59 08/21/17 08:43 Atorvastatin Calcium (Lipitor) 10 mg BEDTIME ORAL 08/21/17 21:00 09/18/17 20:59 Dextrose (Dextrose 50%) 25 ml STAT PRN IV BS 60-69mg/dl 08/21/17 15:00 09/18/17 14:59 Dextrose (Dextrose 50%) 50 ml STAT PRN IV BS less than 60mg/dl 08/21/17 14:45 09/18/17 14:44 Divalproex Sodium (Depakote ER) 250 mg EVERY 12 HOURS ORAL 08/21/17 09:00 09/19/17 08:59 08/21/17 08:43 Heparin Sodium (Porcine) (Heparin 5000 units/ml) 5,000 units EVERY 12 HOURS SUBQ 08/21/17 09:00 09/18/17 20:59 08/21/17 08:46 Lisinopril (Prinivil) 20 mg DAILY ORAL 08/21/17 09:00 09/19/17 08:59 08/21/17 08:43 Lorazepam (Ativan 2mg/ml 1ml) 2 mg EVERY HOUR PRN IV seizures 08/20/17 22:00 08/26/17 14:44 Lorazepam (Ativan) 1 mg Q6H PRN ORAL For Anxiety 08/21/17 03:45 08/27/17 03:44 Morphine Sulfate (Morphine Sulfate) 1 mg EVERY 4 HOURS PRN IVP For Pain 08/21/17 01:00 08/26/17 14:44 Ondansetron HCl (Zofran) 4 mg Q6H PRN IVP Nausea & Vomiting 08/21/17 02:45 09/18/17 14:44 Polyethylene Glycol (Miralax) 17 gm HSPRN PRN ORAL Constipation 08/21/17 14:45 09/18/17 14:44 Potassium Chloride (K-Dur) 40 meq ONCE ORAL 08/21/17 11:00 08/21/17 12:00 Risperidone (RisperDAL) 1 mg DAILY ORAL 08/21/17 09:00 09/19/17 08:59 08/21/17 08:43 Zolpidem Tartrate (Ambien) 5 mg HSPRN PRN ORAL Insomnia 08/21/17 14:45 08/26/17 14:44 Dahlia Lord MD Aug 21, 2017 12:03
[2017-08-21] MEDS ORDERED: Miralax 17gm pkt ORAL PRN ×2 (14:45→20:00)
[2017-08-21] MEDS ORDERED: Zolpidem 5mg tab ORAL PRN ×2 (14:45→20:00)
--- NOTE | 2017-08-21 14:52 | General Progress Note ---
Assessment/Plan Problem List: (1) Hypertension ICD Codes: I10 - Essential (primary) hypertension SNOMED: 76215094 (2) History of CVA (cerebrovascular accident) ICD Codes: Z86.73 - Personal history of transient ischemic attack (TIA), and cerebral infarction without residual deficits SNOMED: 877385513 (3) COPD (chronic obstructive pulmonary disease) ICD Codes: J44.9 - Chronic obstructive pulmonary disease, unspecified SNOMED: 33465162 (4) Seizure disorder ICD Codes: G40.909 - Epilepsy, unspecified, not intractable, without status epilepticus SNOMED: 088059464 (5) Left-sided weakness ICD Codes: R53.1 - Weakness SNOMED: 228292166 (6) Tachycardia ICD Codes: R00.0 - Tachycardia, unspecified SNOMED: 0603585 Status: stable, progressing, tolerating diet Assessment/Plan ot pt diet cbc bmp am seizure control transfer to [facility] cardio eval Subjective Constitutional: Reports: weakness Allergies: Coded Allergies: No Known Allergies (Unverified , 08/19/17) All Systems: reviewed and negative except above Subjective calm in bed no seizure last night Objective Last 24 Hour Vital Signs Date Time Temp Pulse Resp B/P (MAP) Pulse Ox O2 Delivery O2 Flow Rate FiO2 08/21/17 11:48 98.6 133 20 147/92 96 Room Air 98.6 08/21/17 08:43 133/86 08/21/17 08:43 110 133/86 08/21/17 08:00 98.3 110 20 133/86 96 Room Air 98.3 08/21/17 04:00 98.2 98 18 150/80 97 Room Air 98.2 08/20/17 22:00 98.3 94 18 128/76 95 Room Air 98.3 08/20/17 20:00 98.1 104 16 132/80 96 98.1 08/20/17 20:00 96 Room Air 08/20/17 20:00 102 08/20/17 16:00 95 08/20/17 16:00 97.0 94 20 135/86 98 Room Air 97.0 Intake and Output 08/20/17 08/21/17 18:59 06:59 Intake Total 480 ml Output Total 300 ml 350 ml Balance 180 ml -350 ml Intake Oral 480 ml Output Urine Total 300 ml 350 ml # Voids 2 Laboratory Tests 08/21/17 07:50: White Blood Count 10.2, Red Blood Count 4.78, Hemoglobin 13.7L, Hematocrit 39.5L , Mean Corpuscular Volume 83, Mean Corpuscular Hemoglobin 28.6, Mean Corpuscular Hemoglobin Concent 34.6, Red Cell Distribution Width 12.8, Platelet Count 166, Mean Platelet Volume 8.1, Neutrophils (%) (Auto) 63.1, Lymphocytes (% ) (Auto) 30.1, Monocytes (%) (Auto) 4.9, Eosinophils (%) (Auto) 1.4, Basophils ( %) (Auto) 0.5, Sodium Level 141, Potassium Level 3.4L, Chloride Level 104, Carbon Dioxide Level 27, Anion Gap 10, Blood Urea Nitrogen 15, Creatinine 0.9, Estimat Glomerular Filtration Rate > 60, Glucose Level 150H, Calcium Level 9.3 Height (Feet): 5 Height (Inches): 9.00 Weight (Pounds): 190 General Appearance: lethargic EENT: normal ENT inspection Neck: normal alignment Cardiovascular: tachycardia Respiratory/Chest: chest wall non-tender, lungs clear, normal breath sounds Abdomen: normal bowel sounds, non tender, soft Extremities: normal inspection Edema: no edema noted Arm (L), no edema noted Arm (R), no edema noted Leg (L), no edema noted Leg (R), no edema noted Pedal (L), no edema noted Pedal (R), no edema noted Generalized Neurologic: responsive, motor weakness Skin: normal pigmentation, warm/dry FEROZ SALCEDO Aug 21, 2017 14:52
[2017-08-21] MEDS ORDERED: LORazepam Inj 2mg/ml 1ml IV PRN (15:30)
[2017-08-21 16:00] VITALS: BP 133/84
[2017-08-21 20:00] VITALS: BP 112/76
--- NOTE | 2017-08-21 20:43 | Neurology Progress Note ---
Interim History Interim History ROS Limited/Unobtainable: No Interim History Mr. Weinberg feels well. He continues to be free of seizures. He is tolerating the Keppra well. He denies any new neurologic symptoms. He specifically denies any weakness on one side or the other, numbness on one side or the other, problems with speech, problems with language, or problems with vision. Review of Systems Neuro Review of Systems Benign. Objective Physical Exam Last Vital Signs Date Time Temp Pulse Resp B/P (MAP) Pulse Ox O2 Delivery O2 Flow Rate FiO2 08/21/17 16:00 97.3 124 20 133/84 96 Room Air 97.3 Laboratory Tests Test 08/21/17 07:50 White Blood Count 10.2 K/UL (4.8-10.8) Red Blood Count 4.78 M/UL (4.70-6.10) Hemoglobin 13.7 G/DL (14.2-18.0) L Hematocrit 39.5 % (42.0-52.0) L Mean Corpuscular Volume 83 FL (80-99) Mean Corpuscular Hemoglobin 28.6 PG (27.0-31.0) Mean Corpuscular Hemoglobin Concent 34.6 G/DL (32.0-36.0) Red Cell Distribution Width 12.8 % (11.6-14.8) Platelet Count 166 K/UL (150-450) Mean Platelet Volume 8.1 FL (6.5-10.1) Neutrophils (%) (Auto) 63.1 % (45.0-75.0) Lymphocytes (%) (Auto) 30.1 % (20.0-45.0) Monocytes (%) (Auto) 4.9 % (1.0-10.0) Eosinophils (%) (Auto) 1.4 % (0.0-3.0) Basophils (%) (Auto) 0.5 % (0.0-2.0) Sodium Level 141 MMOL/L (136-145) Potassium Level 3.4 MMOL/L (3.5-5.1) L Chloride Level 104 MMOL/L (98-107) Carbon Dioxide Level 27 MMOL/L (21-32) Anion Gap 10 mmol/L (5-15) Blood Urea Nitrogen 15 mg/dL (7-18) Creatinine 0.9 MG/DL (0.55-1.30) Estimat Glomerular Filtration Rate > 60 mL/min (>60) Glucose Level 150 MG/DL (74-106) H Calcium Level 9.3 MG/DL (8.5-10.1) Neurologic Exam Objective PHYSICAL EXAMINATION: GENERAL: He is a well-developed and well-nourished, black gentleman, lying in bed, in no acute distress. HEAD: Normocephalic and atraumatic. EENT: Examination benign. NECK: No neck rigidity was observed. NEUROLOGIC EXAMINATION: MENTAL STATUS EXAMINATION: He was awake and alert. He was oriented to [facility], [facility], and August 2017. He did not know the exact date. He was able to recall 3/3 words immediately, but could only remember 2/3 words in 1 minute and 3 minutes. He was able to remember presidents, Trump and Obama spontaneously, but he needed hints to remember through [employer]. His mathematical skills were impaired. His visuospatial function was also impaired. SPEECH: He had a mild dysarthria. LANGUAGE: He had anomia for low-frequency words. CRANIAL NERVE EXAMINATION: II: He had a left visual field deficit on confrontation testing. III, IV & : External ocular movements were full and the pupils 3 mm in diameter, equal, round, regular, and reactive to light. V: He had normal facial sensations, and the temporales, masseters, and pterygoids functioned normally. VII: He had a left seventh central facial paresis. VIII: He was able to hear well bilaterally and had no nystagmus. IX: The palate moved symmetrically on phonation. X: He had no hoarseness of voice. XI: The sternocleidomastoids and trapezii functioned normally. XII: The tongue was in the midline without any fasciculations or atrophy. MOTOR SYSTEM: The tone was increased on the left side with a significant degree of spasticity. Examination of muscle mass revealed significant wasting of his left upper extremity with contractures at the fingers and elbow. Examination of power was difficult to perform because of varying degrees of effort, but he had a definite left upper extremity plegia, left lower extremity paresis and mild right lower extremity paresis. SENSORY EXAMINATION: He was able to discern between pinprick and light touch. COORDINATION: He performed well on [id number] on the right side. He was unable to perform on the left side. REFLEXES: Trace+ on the right and 1+ on the left at the biceps, triceps, and brachioradialis. Trace+ on the left and 2+ on the right at the knees, 0 at both ankles. The plantar response was flexor on the right and extensor on the left. STANCE & GAIT: Could not be tested. Impression/Recommendations Diagnostic Impression 1. Mr. Lenard Kam is a 67-year-old, right-handed, black gentleman, with a past history of hypertension and cerebrovascular disease with stroke with left- sided weakness a few years ago who apparently had a seizure at his [place] [facility] on 08/19/2017. The type of seizure is unknown to us, as it has not been described to us. 2. He feels well. He has had no further seizures. He has tolerated the Keppra well. He denies any new neurologic symptoms. 3. On neurological examination, at this time, he does demonstrate problems with orientation, recent and remote memory, visuospatial function, higher cognitive function, and language. He also has a dysarthria, left visual field deficit, left seventh central facial paresis, left upper greater than lower extremity paresis, mild right lower extremity paresis, left-sided agraphesthesia, brisk deep tendon reflexes on the left compared to the right, but the reflexes are globally diminished and an extensor plantar response on the left side. 4. The CT scan of the brain without contrast reveals an old right middle cerebral artery territory infarct. 5. Laboratory data obtained thus far revealed a CBC with a WBC count elevated to 12,800. A chemistry panel that is relatively benign. Negative urine toxicology screen and negative urine analysis. 6. The EEG revealed right hemispheric dysfunction but no inter-ictal phenomena. 7. The patient's history and neurological examination are most compatible with a new onset seizure, most probably focal with secondary generalization. However , the exact type is unclear to us as the exact description of the seizure was not given to us. The most likely etiology for the seizure would be an irritable epileptogenic focus in the area where he had his prior stroke. Recommendations 1. Continue present management. 2. PT/OT to mobilize. 3. Continue Keppra for seizure prophylaxis. 4. Can be discharged from neurologic point of view. Arnaud K. Vincent, M.D., MLudySAlisa. ARNAUD MONTANA Aug 21, 2017 20:43
[2017-08-21] MEDS: Depakote ER 250mg tab ORAL SCH (21:34)
[2017-08-21] MEDS: Heparin 5000 units/ml inj SUBQ SCH (21:35)
[2017-08-22] VITALS: BP 105/67
[2017-08-22 04:00] VITALS: BP 128/79
--- NOTE | 2017-08-22 05:15 | Progress Note ---
DATE: 08/21/2017 SUBJECTIVE: This is a 67-year-old patient with seizure disorder. The patient has new onset of seizures, but he still has some agitation, irritability, and altered mental status, worsened by stress of his medical illness. MENTAL STATUS EXAMINATION: This is a 67-year-old male. Appearance is disheveled. Attitude, irritable and agitated. Affect, guarded and restricted. Intellect poor. Mood, depressed and anxious. Motor activity, psychomotor agitation. Attention span is poor. Orientation x2. Speech is pressured. Thought process, disorganized and illogical. Thought content, auditory hallucinations and paranoid delusions. Insight and judgment is poor. DIAGNOSIS: Paranoid schizophrenia with acute exacerbation. PLAN: Provided 18 to 20 minutes of supportive therapy. The patient is seen and assessed at the bedside. Chart reviewed. Discussed with staff. Seen and assessed at bedside. Olga Lidia De Jesus M.D. DR: SAVI JOB#: [id number] CC:
--- NOTE | 2017-08-22 06:00 | Electroencephalogram ---
DATE OF PROCEDURE: 08/20/2017 EEG REPORT REQUESTING PHYSICIAN: Biju Snatos D.O. HISTORY: This EEG was performed on a 67-year-old gentleman with a history of a prior stroke associated with left-sided weakness, who was hospitalized following a seizure that was poorly described. The purpose of this EEG was to evaluate the patient for ongoing ictal or interictal phenomena and to evaluate the patient for the degree and type of cerebral dysfunction. TECHNICAL NOTE: This EEG was performed on a [employer] with electrodes placed on the scalp according to the International 10-20 system. [id number] and afubb-vb-[id number] montages were used. The EEG was technically satisfactory and was performed while the patient was in an awake state. OBSERVATIONS: In the best awake state, the background activity consisted of 8-8.5 Hz alpha activity over the left hemisphere and 5-6 Hz theta activity over the right hemisphere. Large parts of the tracing were marked by the EMG artifact. No interictal discharges were seen. IMPRESSION: This is an abnormal EEG characterized by slowing of the background in the 5-6 Hz theta range over the right hemisphere. COMMENT: This study is consistent with dysfunction involving the right hemisphere. Please note that the absence of interictal discharges does not rule out a seizure disorder. Eduardo Kaur M.D., M.S.P.H. DR: ELIO JOB#: [id number] [facility]
[2017-08-22 07:41] LABS: BASOPHILS % (AUTO) 0.7 % (0.0-2.0); HEMOGLOBIN 13.9 G/DL (14.2-18.0); LYMPHOCYTES % (AUTO) 42.9 % (20.0-45.0); MEAN CORPUSCULAR VOLUME 83 FL (80-99); MONOCYTES % (AUTO) 8.1 % (1.0-10.0); NEUTROPHILS % (AUTO) 47.4 % (45.0-75.0); PLATELET COUNT 179 K/UL (150-450); RED BLOOD COUNT 4.73 M/UL (4.70-6.10); WHITE BLOOD COUNT 10.5 K/UL (4.8-10.8)
[2017-08-22 07:51] LABS: ANION GAP 7 mmol/L (5-15); BLOOD UREA NITROGEN 16 mg/dL (7-18); CALCIUM 9.8 MG/DL (8.5-10.1); CARBON DIOXIDE 28 MMOL/L (21-32); CHLORIDE 105 MMOL/L (98-107); CREATININE 1.2 MG/DL (0.55-1.30); POTASSIUM 3.8 MMOL/L (3.5-5.1); SODIUM 140 MMOL/L (136-145)
[2017-08-22 08:00] VITALS: BP 108/76
[2017-08-22] MEDS: Depakote ER 250mg tab ORAL SCH ×2 (09:29→21:07)
[2017-08-22] MEDS: Lisinopril 20mg tab ORAL SCH (09:32)
[2017-08-22] MEDS: Heparin 5000 units/ml inj SUBQ SCH ×2 (09:34→21:09)
[2017-08-22 12:00] VITALS: BP 138/79
--- NOTE | 2017-08-22 13:43 | Pulmonology Progress Note ---
Assessment/Plan Problems: (1) Tachycardia (2) Seizure disorder (3) COPD (chronic obstructive pulmonary disease) (4) Left-sided weakness (5) Hypertension (6) History of CVA (cerebrovascular accident) Assessment/Plan pt is tachycardic, at 110, less than yesterday, regular awaiting cardiology evaluation awaiting for video swallow study monitor BP, symptomatic treatment f/u Neurology recommendations for seizure dvt prophylaxis Subjective ROS Limited/Unobtainable: No - no new complians, remains tachycardic Constitutional: Reports: no symptoms Allergies: Coded Allergies: No Known Allergies (Unverified , 08/19/17) Objective Last 24 Hour Vital Signs Date Time Temp Pulse Resp B/P (MAP) Pulse Ox O2 Delivery O2 Flow Rate FiO2 08/22/17 12:00 107 08/22/17 12:00 98.2 116 20 138/79 94 Room Air 98.2 08/22/17 09:32 108/76 08/22/17 09:31 116 108/76 08/22/17 08:00 111 08/22/17 08:00 98.4 115 20 108/76 94 Room Air 98.4 08/22/17 04:00 107 08/22/17 04:00 97.7 110 20 128/79 96 Room Air 97.7 08/22/17 00:00 96 08/22/17 00:00 97.2 99 19 105/67 97 Room Air 97.2 08/21/17 20:00 97.9 135 20 112/76 96 Room Air 97.9 08/21/17 20:00 132 08/21/17 16:00 97.3 124 20 133/84 96 Room Air 97.3 Intake and Output 08/21/17 08/22/17 19:00 07:00 Intake Total 960 ml Output Total 1000 ml Balance -40 ml Intake Oral 960 ml Output Urine Total 1000 ml # Voids 1 # Bowel Movements 2 2 General Appearance: WD/WN HEENT: normocephalic, anicteric Respiratory/Chest: chest wall non-tender, lungs clear Cardiovascular: normal peripheral pulses, normal rate Abdomen: normal bowel sounds, no organomegaly Genitourinary: normal external genitalia Extremities: no clubbing Neurologic/Psychiatric: 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 Complete 08/19/17 13:50 Rectum VRE Culture - Final NO VANCOMYCIN RESISTANT ENTEROCOCCUS ... Complete Laboratory Tests 08/22/17 06:45: White Blood Count 10.5, Red Blood Count 4.73, Hemoglobin 13.9L, Hematocrit 39.0L , Mean Corpuscular Volume 83, Mean Corpuscular Hemoglobin 29.3, Mean Corpuscular Hemoglobin Concent 35.5, Red Cell Distribution Width 13.0, Platelet Count 179, Mean Platelet Volume 8.5, Neutrophils (%) (Auto) 47.4, Lymphocytes (% ) (Auto) 42.9, Monocytes (%) (Auto) 8.1, Eosinophils (%) (Auto) 1.0, Basophils ( %) (Auto) 0.7, Sodium Level 140, Potassium Level 3.8, Chloride Level 105, Carbon Dioxide Level 28, Anion Gap 7, Blood Urea Nitrogen 16, Creatinine 1.2, Estimat Glomerular Filtration Rate > 60, Glucose Level 107H, Calcium Level 9.8 Current Medications Medications (Trade) Dose Ordered Sig/Rustam Route PRN Reason Start Time Stop Time Status Last Admin Dose Admin Acetaminophen (Tylenol) 650 mg Q4H PRN ORAL fever (temp>100.5F) 08/21/17 15:30 09/18/17 15:29 Al Hydroxide/Mg Hydroxide (Mylanta II) 30 ml Q6H PRN ORAL dyspepsia 08/21/17 15:30 09/18/17 15:29 Amlodipine Besylate (Norvasc) 10 mg DAILY ORAL 08/22/17 09:00 09/19/17 08:59 08/22/17 09:31 Atorvastatin Calcium (Lipitor) 10 mg BEDTIME ORAL 08/21/17 21:00 09/18/17 20:59 08/21/17 21:34 Dextrose (Dextrose 50%) 25 ml STAT PRN IV BS 60-69mg/dl 08/21/17 15:30 09/20/17 15:29 Dextrose (Dextrose 50%) 50 ml STAT PRN IV BS less than 60mg/dl 08/21/17 15:30 09/20/17 15:29 Divalproex Sodium (Depakote ER) 250 mg EVERY 12 HOURS ORAL 08/21/17 21:00 09/19/17 08:59 08/22/17 09:29 Heparin Sodium (Porcine) (Heparin 5000 units/ml) 5,000 units EVERY 12 HOURS SUBQ 08/21/17 21:00 09/18/17 20:59 08/22/17 09:34 Lisinopril (Prinivil) 20 mg DAILY ORAL 08/22/17 09:00 09/19/17 08:59 08/22/17 09:32 Lorazepam (Ativan 2mg/ml 1ml) 2 mg Q1H PRN IV seizures 08/21/17 15:30 08/28/17 15:29 Lorazepam (Ativan) 1 mg Q6H PRN ORAL For Anxiety 08/21/17 15:45 08/27/17 03:44 Morphine Sulfate (Morphine Sulfate) 1 mg Q4H PRN IVP For Pain 08/21/17 17:00 08/28/17 16:59 Ondansetron HCl (Zofran) 4 mg Q6H PRN IVP Nausea & Vomiting 08/21/17 15:30 09/18/17 15:29 Polyethylene Glycol (Miralax) 17 gm HSPRN PRN ORAL Constipation 08/21/17 20:00 09/20/17 19:59 Risperidone (RisperDAL) 1 mg DAILY ORAL 08/22/17 09:00 09/19/17 08:59 08/22/17 09:27 Zolpidem Tartrate (Ambien) 5 mg HSPRN PRN ORAL Insomnia 08/21/17 20:00 08/28/17 19:59 Dahlia Lord MD Aug 22, 2017 13:43
[2017-08-22 16:00] VITALS: BP 124/77
--- NOTE | 2017-08-22 16:01 | General Progress Note ---
Assessment/Plan Problem List: (1) Hypertension ICD Codes: I10 - Essential (primary) hypertension SNOMED: 08832375 (2) History of CVA (cerebrovascular accident) ICD Codes: Z86.73 - Personal history of transient ischemic attack (TIA), and cerebral infarction without residual deficits SNOMED: 124319772 (3) COPD (chronic obstructive pulmonary disease) ICD Codes: J44.9 - Chronic obstructive pulmonary disease, unspecified SNOMED: 55946625 (4) Seizure disorder ICD Codes: G40.909 - Epilepsy, unspecified, not intractable, without status epilepticus SNOMED: 304874641 (5) Left-sided weakness ICD Codes: R53.1 - Weakness SNOMED: 967291282 (6) Tachycardia ICD Codes: R00.0 - Tachycardia, unspecified SNOMED: 8486201 Status: stable, progressing, tolerating diet Assessment/Plan ot pt diet cbc bmp am seizure control dc plan if cardio clears Subjective Constitutional: Reports: weakness Allergies: Coded Allergies: No Known Allergies (Unverified , 08/19/17) All Systems: reviewed and negative except above Subjective calm in bed no seizure last night Objective Last 24 Hour Vital Signs Date Time Temp Pulse Resp B/P (MAP) Pulse Ox O2 Delivery O2 Flow Rate FiO2 08/22/17 12:00 107 08/22/17 12:00 98.2 116 20 138/79 94 Room Air 98.2 08/22/17 09:32 108/76 08/22/17 09:31 116 108/76 08/22/17 08:00 111 08/22/17 08:00 98.4 115 20 108/76 94 Room Air 98.4 08/22/17 04:00 107 08/22/17 04:00 97.7 110 20 128/79 96 Room Air 97.7 08/22/17 00:00 96 08/22/17 00:00 97.2 99 19 105/67 97 Room Air 97.2 08/21/17 20:00 97.9 135 20 112/76 96 Room Air 97.9 08/21/17 20:00 132 Intake and Output 08/21/17 08/22/17 19:00 07:00 Intake Total 960 ml Output Total 1000 ml Balance -40 ml Intake Oral 960 ml Output Urine Total 1000 ml # Voids 1 # Bowel Movements 2 2 Laboratory Tests 08/22/17 06:45: White Blood Count 10.5, Red Blood Count 4.73, Hemoglobin 13.9L, Hematocrit 39.0L , Mean Corpuscular Volume 83, Mean Corpuscular Hemoglobin 29.3, Mean Corpuscular Hemoglobin Concent 35.5, Red Cell Distribution Width 13.0, Platelet Count 179, Mean Platelet Volume 8.5, Neutrophils (%) (Auto) 47.4, Lymphocytes (% ) (Auto) 42.9, Monocytes (%) (Auto) 8.1, Eosinophils (%) (Auto) 1.0, Basophils ( %) (Auto) 0.7, Sodium Level 140, Potassium Level 3.8, Chloride Level 105, Carbon Dioxide Level 28, Anion Gap 7, Blood Urea Nitrogen 16, Creatinine 1.2, Estimat Glomerular Filtration Rate > 60, Glucose Level 107H, Calcium Level 9.8 Height (Feet): 5 Height (Inches): 9.00 Weight (Pounds): 190 General Appearance: lethargic EENT: normal ENT inspection Neck: normal alignment Cardiovascular: normal peripheral pulses, regular rhythm, tachycardia Respiratory/Chest: chest wall non-tender, lungs clear, normal breath sounds Abdomen: normal bowel sounds, non tender, soft Extremities: normal inspection Edema: no edema noted Arm (L), no edema noted Arm (R), no edema noted Leg (L), no edema noted Leg (R), no edema noted Pedal (L), no edema noted Pedal (R), no edema noted Generalized Neurologic: responsive, motor weakness Skin: normal pigmentation, warm/dry FEROZ SALCEDO Aug 22, 2017 16:01
--- NOTE | 2017-08-22 19:45 | Progress Note ---
DATE: 08/22/2017 HISTORY: The patient is a 67-year-old male patient admitted with complaints of seizures. This patient is confused and disorganized. His mood is labile. He has got no logical plan for his own self-care. I am going to continue to treat him with psychotropic medications, stabilize his mood, and encourage him to interact appropriately with staff and other patients. He has still got confusion, agitation, and disorganized thought process worsened by stress of his medical illness. That is why, his attending has requested daily psychiatric consultation. MENTAL STATUS EXAMINATION: The patient is a 67-year-old male. Appearance, disheveled. Irritable and agitated. Affect, guarded and restricted. Intellect poor. Mood, depressed and anxious. Motor activity, psychomotor agitation. Attention span is poor. Orientation x3. Speech is pressured. Thought process, disorganized and illogical. Thought content, auditory hallucinations and paranoid delusions. Insight and judgement is poor. DIAGNOSIS: Diagnosis is paranoid schizophrenia. PLAN: Continue Risperdal 1 mg p.o. b.i.d. 18 to 20 minutes of supportive therapy was provided. Chart reviewed. Discussed with staff. Seen and assessed at bedside. Olga Lidia De Jesus M.D. DR: JACINTO JOB#: [id number] CC:
[2017-08-22 20:00] VITALS: BP 129/74
--- NOTE | 2017-08-22 20:48 | Cardiology Progress Note ---
Assessment/Plan Assessment/Plan The patient is seen and examined, full consult note will be dictated shortly. Objective Last 24 Hour Vital Signs Date Time Temp Pulse Resp B/P (MAP) Pulse Ox O2 Delivery O2 Flow Rate FiO2 08/22/17 20:00 97.9 118 19 129/74 94 Room Air 97.9 08/22/17 20:00 132 08/22/17 16:00 97.0 110 20 124/77 95 Room Air 97.0 08/22/17 16:00 110 08/22/17 12:00 107 08/22/17 12:00 98.2 116 20 138/79 94 Room Air 98.2 08/22/17 09:32 108/76 08/22/17 09:31 116 108/76 08/22/17 08:00 111 08/22/17 08:00 98.4 115 20 108/76 94 Room Air 98.4 08/22/17 04:00 107 08/22/17 04:00 97.7 110 20 128/79 96 Room Air 97.7 08/22/17 00:00 96 08/22/17 00:00 97.2 99 19 105/67 97 Room Air 97.2 Intake and Output 08/21/17 08/22/17 19:00 07:00 Intake Total 960 ml Output Total 1000 ml Balance -40 ml Intake Oral 960 ml Output Urine Total 1000 ml # Voids 1 # Bowel Movements 2 2 Laboratory Tests Test 08/22/17 06:45 White Blood Count 10.5 K/UL (4.8-10.8) Red Blood Count 4.73 M/UL (4.70-6.10) Hemoglobin 13.9 G/DL (14.2-18.0) L Hematocrit 39.0 % (42.0-52.0) L Mean Corpuscular Volume 83 FL (80-99) Mean Corpuscular Hemoglobin 29.3 PG (27.0-31.0) Mean Corpuscular Hemoglobin Concent 35.5 G/DL (32.0-36.0) Red Cell Distribution Width 13.0 % (11.6-14.8) Platelet Count 179 K/UL (150-450) Mean Platelet Volume 8.5 FL (6.5-10.1) Neutrophils (%) (Auto) 47.4 % (45.0-75.0) Lymphocytes (%) (Auto) 42.9 % (20.0-45.0) Monocytes (%) (Auto) 8.1 % (1.0-10.0) Eosinophils (%) (Auto) 1.0 % (0.0-3.0) Basophils (%) (Auto) 0.7 % (0.0-2.0) Sodium Level 140 MMOL/L (136-145) Potassium Level 3.8 MMOL/L (3.5-5.1) Chloride Level 105 MMOL/L (98-107) Carbon Dioxide Level 28 MMOL/L (21-32) Anion Gap 7 mmol/L (5-15) Blood Urea Nitrogen 16 mg/dL (7-18) Creatinine 1.2 MG/DL (0.55-1.30) Estimat Glomerular Filtration Rate > 60 mL/min (>60) Glucose Level 107 MG/DL (74-106) H Calcium Level 9.8 MG/DL (8.5-10.1) EVELIN BOSE Aug 22, 2017 20:48
--- NOTE | 2017-08-22 21:13 | Cardiology Report ---
APPROVED REPORT EKG Measurement Heart [id number] Sin[address] Nonspecific ST and T wave abnormality Abnormal ECG
--- NOTE | 2017-08-22 21:44 | Neurology Progress Note ---
Interim History Interim History Interim History Mr. Weinberg feels better. He continues to be free of seizures. He is tolerating the Keppra well. He denies any new neurologic symptoms. He specifically denies any weakness on one side or the other, numbness on one side or the other, problems with speech, problems with language, or problems with vision. Review of Systems Neuro Review of Systems Benign. Objective Physical Exam Last Vital Signs Date Time Temp Pulse Resp B/P (MAP) Pulse Ox O2 Delivery O2 Flow Rate FiO2 08/22/17 20:00 97.9 118 19 129/74 94 Room Air 97.9 Laboratory Tests Test 08/22/17 06:45 White Blood Count 10.5 K/UL (4.8-10.8) Red Blood Count 4.73 M/UL (4.70-6.10) Hemoglobin 13.9 G/DL (14.2-18.0) L Hematocrit 39.0 % (42.0-52.0) L Mean Corpuscular Volume 83 FL (80-99) Mean Corpuscular Hemoglobin 29.3 PG (27.0-31.0) Mean Corpuscular Hemoglobin Concent 35.5 G/DL (32.0-36.0) Red Cell Distribution Width 13.0 % (11.6-14.8) Platelet Count 179 K/UL (150-450) Mean Platelet Volume 8.5 FL (6.5-10.1) Neutrophils (%) (Auto) 47.4 % (45.0-75.0) Lymphocytes (%) (Auto) 42.9 % (20.0-45.0) Monocytes (%) (Auto) 8.1 % (1.0-10.0) Eosinophils (%) (Auto) 1.0 % (0.0-3.0) Basophils (%) (Auto) 0.7 % (0.0-2.0) Sodium Level 140 MMOL/L (136-145) Potassium Level 3.8 MMOL/L (3.5-5.1) Chloride Level 105 MMOL/L (98-107) Carbon Dioxide Level 28 MMOL/L (21-32) Anion Gap 7 mmol/L (5-15) Blood Urea Nitrogen 16 mg/dL (7-18) Creatinine 1.2 MG/DL (0.55-1.30) Estimat Glomerular Filtration Rate > 60 mL/min (>60) Glucose Level 107 MG/DL (74-106) H Calcium Level 9.8 MG/DL (8.5-10.1) Neurologic Exam Objective PHYSICAL EXAMINATION: GENERAL: He is a well-developed and well-nourished, black gentleman, lying in bed, in no acute distress. HEAD: Normocephalic and atraumatic. EENT: Examination benign. NECK: No neck rigidity was observed. NEUROLOGIC EXAMINATION: MENTAL STATUS EXAMINATION: He was awake and alert. He was oriented to [facility] and [facility] only. He was able to recall 3/3 words immediately, but could only remember 2/3 words in 1 minute and 3 minutes. He was able to remember presidents, Trump and Obama spontaneously, but he needed hints to remember through Reynolds Senior. His mathematical skills were impaired. His visuospatial function was also impaired. SPEECH: He had a mild dysarthria. LANGUAGE: He had anomia for low-frequency words. CRANIAL NERVE EXAMINATION: II: He had a left visual field deficit on confrontation testing. III, IV & : External ocular movements were full and the pupils 3 mm in diameter, equal, round, regular, and reactive to light. V: He had normal facial sensations, and the temporales, masseters, and pterygoids functioned normally. VII: He had a left seventh central facial paresis. VIII: He was able to hear well bilaterally and had no nystagmus. IX: The palate moved symmetrically on phonation. X: He had no hoarseness of voice. XI: The sternocleidomastoids and trapezii functioned normally. XII: The tongue was in the midline without any fasciculations or atrophy. MOTOR SYSTEM: The tone was increased on the left side with a significant degree of spasticity. Examination of muscle mass revealed significant wasting of his left upper extremity with contractures at the fingers and elbow. Examination of power was difficult to perform because of varying degrees of effort, but he had a definite left upper extremity plegia, left lower extremity paresis and mild right lower extremity paresis. SENSORY EXAMINATION: He was able to discern between pinprick and light touch. COORDINATION: He performed well on [id number] on the right side. He was unable to perform on the left side. REFLEXES: Trace+ on the right and 1+ on the left at the biceps, triceps, and brachioradialis. Trace+ on the left and 2+ on the right at the knees, 0 at both ankles. The plantar response was flexor on the right and extensor on the left. STANCE & GAIT: Could not be tested. Impression/Recommendations Diagnostic Impression 1. Mr. Lenard Kam is a 67-year-old, right-handed, black gentleman, with a past history of hypertension and cerebrovascular disease with stroke with left- sided weakness a few years ago who apparently had a seizure at his residential on 08/19/2017. The type of seizure is unknown to us, as it has not been described to us. 2. He feels well. He has had no further seizures. He has tolerated the Keppra well. He denies any new neurologic symptoms. 3. On neurological examination, at this time, he does demonstrate problems with orientation, recent and remote memory, visuospatial function, higher cognitive function, and language. He also has a dysarthria, left visual field deficit, left seventh central facial paresis, left upper greater than lower extremity paresis, mild right lower extremity paresis, left-sided agraphesthesia, brisk deep tendon reflexes on the left compared to the right, but the reflexes are globally diminished and an extensor plantar response on the left side. 4. The CT scan of the brain without contrast reveals an old right middle cerebral artery territory infarct. 5. Laboratory data obtained thus far revealed a CBC with a WBC count elevated to 12,800. A chemistry panel that is relatively benign. Negative urine toxicology screen and negative urine analysis. 6. The EEG revealed right hemispheric dysfunction but no inter-ictal phenomena. 7. The patient's history and neurological examination are most compatible with a new onset seizure, most probably focal with secondary generalization. However , the exact type is unclear to us as the exact description of the seizure was not given to us. The most likely etiology for the seizure would be an irritable epileptogenic focus in the area where he had his prior stroke. Recommendations 1. Continue present management. 2. PT/OT to mobilize. 3. Continue Keppra for seizure prophylaxis. 4. Can be discharged from neurologic point of view. Arnaud Montana M.D., M.S.P.H. ARNAUD MONTANA Aug 22, 2017 21:44
[2017-08-23] VITALS: BP 114/76
[2017-08-23 04:00] VITALS: BP 122/64
[2017-08-23 06:20] LABS: BASOPHILS % (AUTO) 0.6 % (0.0-2.0); HEMATOCRIT 37.3 % (42.0-52.0); MEAN CORPUSCULAR VOLUME 83 FL (80-99); MONOCYTES % (AUTO) 8.4 % (1.0-10.0); PLATELET COUNT 174 K/UL (150-450); RED BLOOD COUNT 4.51 M/UL (4.70-6.10); RED CELL DISTRIBUTION WIDTH 13.1 % (11.6-14.8); WHITE BLOOD COUNT 8.7 K/UL (4.8-10.8)
[2017-08-23 06:43] LABS: ANION GAP 6 mmol/L (5-15); BLOOD UREA NITROGEN 17 mg/dL (7-18); CALCIUM 9.4 MG/DL (8.5-10.1); CARBON DIOXIDE 28 MMOL/L (21-32); CHLORIDE 107 MMOL/L (98-107); CREATININE 1.3 MG/DL (0.55-1.30); SODIUM 141 MMOL/L (136-145)
[2017-08-23 08:00] VITALS: BP 133/78
--- NOTE | 2017-08-23 08:21 | Cardiology Report ---
APPROVED REPORT EXAM: Three-dimensional, Two-dimensional and M-mode echocardiogram with Doppler and color Doppler. INDICATION LV FUNCTION M-Mode DIMENSIONS IVSd1.2 (0.7-1.1cm)Left Atrium (MM)2.5 (1.6-4.0cm) LVDd3.5 (3.5-5.6cm)Aortic Root2.5 (2.0-3.7cm) PWd1.3 (0.7-1.1cm)Aortic Cusp Exc.1.7 (1.5-2.0cm) IVSs1.6 cm LVDs2.5 (2.5-4.0cm) PWs1.5 cm Technically difficult study due to poor acoustical windows. Left ventricular ejection fraction estimated to be 60 %. No evidence of ventricular hypertrophy . No evidence of pericardial effusion. All other cardiac chamber sizes are within normal limits. Focal aortic valve sclerosis with adequate cusp excursion. Mildly Thickened mitral valve leaflets with normal excursion. Mildly Mitral annulus and aortic root calcification. Pulmonic valve not well visualized. Normal tricuspid valve structure. IVC at size 2.1 with physiological collapse . A color flow and spectral Doppler study was performed and revealed: No aortic regurgitation. Trace mitral regurgitation. Mitral diastolic velocities suggest reduced left ventricular relaxation c/w mild LV diastolic dysfunction (Grade I ). Trace tricuspid regurgitation. Tricuspid systolic velocities suggests peak right ventricular systolic pressure of 12mmhg .
[2017-08-23] MEDS: Depakote ER 250mg tab ORAL SCH ×2 (08:46→20:53)
[2017-08-23] MEDS: Lisinopril 20mg tab ORAL SCH (08:47)
[2017-08-23] MEDS: Heparin 5000 units/ml inj SUBQ SCH ×2 (08:48→20:54)
[2017-08-23 12:00] VITALS: BP 141/75
--- NOTE | 2017-08-23 12:46 | General Progress Note ---
Assessment/Plan Problem List: (1) Hypertension ICD Codes: I10 - Essential (primary) hypertension SNOMED: 61899923 (2) History of CVA (cerebrovascular accident) ICD Codes: Z86.73 - Personal history of transient ischemic attack (TIA), and cerebral infarction without residual deficits SNOMED: 460710330 (3) COPD (chronic obstructive pulmonary disease) ICD Codes: J44.9 - Chronic obstructive pulmonary disease, unspecified SNOMED: 04829866 (4) Seizure disorder ICD Codes: G40.909 - Epilepsy, unspecified, not intractable, without status epilepticus SNOMED: 954788186 (5) Left-sided weakness ICD Codes: R53.1 - Weakness SNOMED: 583486947 (6) Tachycardia ICD Codes: R00.0 - Tachycardia, unspecified SNOMED: 1447495 Status: progressing, tolerating diet Assessment/Plan ot pt diet cbc bmp am seizure control dc plan if cardio clears Subjective Constitutional: Reports: weakness Allergies: Coded Allergies: No Known Allergies (Unverified , 08/19/17) All Systems: reviewed and negative except above Subjective calm in bed eating Objective Last 24 Hour Vital Signs Date Time Temp Pulse Resp B/P (MAP) Pulse Ox O2 Delivery O2 Flow Rate FiO2 08/23/17 12:00 97.5 106 21 141/75 97 Room Air 97.5 08/23/17 08:47 122/64 08/23/17 08:47 85 122/64 08/23/17 08:00 101 08/23/17 08:00 97.7 105 20 133/78 96 Room Air 97.7 105 08/23/17 04:00 98.0 86 22 122/64 97 Room Air 98.0 08/23/17 04:00 85 08/23/17 00:00 97.4 100 20 114/76 100 Room Air 97.4 08/22/17 20:00 97.9 118 19 129/74 94 Room Air 97.9 08/22/17 20:00 132 08/22/17 16:00 97.0 110 20 124/77 95 Room Air 97.0 08/22/17 16:00 110 Intake and Output 08/22/17 08/23/17 19:00 07:00 Intake Total 600 ml Output Total 200 ml Balance 600 ml -200 ml Other 600 ml Output Urine Total 200 ml # Voids 2 # Bowel Movements 1 2 Laboratory Tests 08/23/17 05:45: White Blood Count 8.7, Red Blood Count 4.51L, Hemoglobin 13.0L, Hematocrit 37.3L , Mean Corpuscular Volume 83, Mean Corpuscular Hemoglobin 28.9, Mean Corpuscular Hemoglobin Concent 34.9, Red Cell Distribution Width 13.1, Platelet Count 174, Mean Platelet Volume 8.2, Neutrophils (%) (Auto) 49.0, Lymphocytes (% ) (Auto) 39.0, Monocytes (%) (Auto) 8.4, Eosinophils (%) (Auto) 3.0, Basophils ( %) (Auto) 0.6, Sodium Level 141, Potassium Level 4.0, Chloride Level 107, Carbon Dioxide Level 28, Anion Gap 6, Blood Urea Nitrogen 17, Creatinine 1.3, Estimat Glomerular Filtration Rate > 60, Glucose Level 97, Calcium Level 9.4 Height (Feet): 5 Height (Inches): 9.00 Weight (Pounds): 190 General Appearance: lethargic EENT: normal ENT inspection Neck: normal alignment Cardiovascular: normal peripheral pulses, normal rate, regular rhythm Respiratory/Chest: chest wall non-tender, lungs clear, normal breath sounds Abdomen: normal bowel sounds, non tender, soft Extremities: normal inspection Edema: no edema noted Arm (L), no edema noted Arm (R), no edema noted Leg (L), no edema noted Leg (R), no edema noted Pedal (L), no edema noted Pedal (R), no edema noted Generalized Neurologic: motor weakness Skin: normal pigmentation, warm/dry FEROZ SALCEDO Aug 23, 2017 12:46
--- NOTE | 2017-08-23 12:52 | Pulmonology Progress Note ---
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 ROS Limited/Unobtainable: No Constitutional: Reports: no symptoms HEENT: Repors: no symptoms Respiratory: Reports: no symptoms Allergies: Coded Allergies: No Known Allergies (Unverified , 08/19/17) Objective Last 24 Hour Vital Signs Date Time Temp Pulse Resp B/P (MAP) Pulse Ox O2 Delivery O2 Flow Rate FiO2 08/23/17 12:00 97.5 106 21 141/75 97 Room Air 97.5 08/23/17 08:47 122/64 08/23/17 08:47 85 122/64 08/23/17 08:00 101 08/23/17 08:00 97.7 105 20 133/78 96 Room Air 97.7 105 08/23/17 04:00 98.0 86 22 122/64 97 Room Air 98.0 08/23/17 04:00 85 08/23/17 00:00 97.4 100 20 114/76 100 Room Air 97.4 08/22/17 20:00 97.9 118 19 129/74 94 Room Air 97.9 08/22/17 20:00 132 08/22/17 16:00 97.0 110 20 124/77 95 Room Air 97.0 08/22/17 16:00 110 Intake and Output 08/22/17 08/23/17 19:00 07:00 Intake Total 600 ml Output Total 200 ml Balance 600 ml -200 ml Other 600 ml Output Urine Total 200 ml # Voids 2 # Bowel Movements 1 2 General Appearance: WD/WN HEENT: normocephalic, atraumatic Respiratory/Chest: chest wall non-tender, lungs clear Cardiovascular: normal peripheral pulses, normal rate Abdomen: normal bowel sounds, soft, non tender Genitourinary: normal external genitalia Extremities: no cyanosis Skin: no ulcers Neurologic/Psychiatric: no motor/sensory deficits Laboratory Tests 08/23/17 05:45: White Blood Count 8.7, Red Blood Count 4.51L, Hemoglobin 13.0L, Hematocrit 37.3L , Mean Corpuscular Volume 83, Mean Corpuscular Hemoglobin 28.9, Mean Corpuscular Hemoglobin Concent 34.9, Red Cell Distribution Width 13.1, Platelet Count 174, Mean Platelet Volume 8.2, Neutrophils (%) (Auto) 49.0, Lymphocytes (% ) (Auto) 39.0, Monocytes (%) (Auto) 8.4, Eosinophils (%) (Auto) 3.0, Basophils ( %) (Auto) 0.6, Sodium Level 141, Potassium Level 4.0, Chloride Level 107, Carbon Dioxide Level 28, Anion Gap 6, Blood Urea Nitrogen 17, Creatinine 1.3, Estimat Glomerular Filtration Rate > 60, Glucose Level 97, Calcium Level 9.4 Current Medications Medications (Trade) Dose Ordered Sig/Rustam Route PRN Reason Start Time Stop Time Status Last Admin Dose Admin Acetaminophen (Tylenol) 650 mg Q4H PRN ORAL fever (temp>100.5F) 08/21/17 15:30 09/18/17 15:29 Al Hydroxide/Mg Hydroxide (Mylanta II) 30 ml Q6H PRN ORAL dyspepsia 08/21/17 15:30 09/18/17 15:29 Amlodipine Besylate (Norvasc) 10 mg DAILY ORAL 08/22/17 09:00 09/19/17 08:59 08/23/17 08:47 Atorvastatin Calcium (Lipitor) 10 mg BEDTIME ORAL 08/21/17 21:00 09/18/17 20:59 08/22/17 21:07 Dextrose (Dextrose 50%) 25 ml STAT PRN IV BS 60-69mg/dl 08/21/17 15:30 09/20/17 15:29 Dextrose (Dextrose 50%) 50 ml STAT PRN IV BS less than 60mg/dl 08/21/17 15:30 09/20/17 15:29 Divalproex Sodium (Depakote ER) 250 mg EVERY 12 HOURS ORAL 08/21/17 21:00 09/19/17 08:59 08/23/17 08:46 Heparin Sodium (Porcine) (Heparin 5000 units/ml) 5,000 units EVERY 12 HOURS SUBQ 08/21/17 21:00 09/18/17 20:59 08/23/17 08:48 Lisinopril (Prinivil) 20 mg DAILY ORAL 08/22/17 09:00 09/19/17 08:59 08/23/17 08:47 Lorazepam (Ativan 2mg/ml 1ml) 2 mg Q1H PRN IV seizures 08/21/17 15:30 08/28/17 15:29 Lorazepam (Ativan) 1 mg Q6H PRN ORAL For Anxiety 08/21/17 15:45 08/27/17 03:44 Morphine Sulfate (Morphine Sulfate) 1 mg Q4H PRN IVP For Pain 08/21/17 17:00 08/28/17 16:59 Ondansetron HCl (Zofran) 4 mg Q6H PRN IVP Nausea & Vomiting 08/21/17 15:30 09/18/17 15:29 Polyethylene Glycol (Miralax) 17 gm HSPRN PRN ORAL Constipation 08/21/17 20:00 09/20/17 19:59 Risperidone (RisperDAL) 1 mg DAILY ORAL 08/22/17 09:00 09/19/17 08:59 08/23/17 08:47 Zolpidem Tartrate (Ambien) 5 mg HSPRN PRN ORAL Insomnia 08/21/17 20:00 08/28/17 19:59 Dahlia Lord MD Aug 23, 2017 12:52
--- NOTE | 2017-08-23 12:57 | Neurology Progress Note ---
Interim History Interim History ROS Limited/Unobtainable: No Interim History Mr. Weinberg feels much better. He continues to be free of seizures. He is tolerating the Keppra well. He denies any new neurologic symptoms. He specifically denies any weakness on one side or the other, numbness on one side or the other, problems with speech, problems with language, or problems with vision. He is eager to go home. Review of Systems Neuro Review of Systems Benign. Objective Physical Exam Last Vital Signs Date Time Temp Pulse Resp B/P (MAP) Pulse Ox O2 Delivery O2 Flow Rate FiO2 08/23/17 12:00 97.5 106 21 141/75 97 Room Air 97.5 Laboratory Tests Test 08/23/17 05:45 White Blood Count 8.7 K/UL (4.8-10.8) Red Blood Count 4.51 M/UL (4.70-6.10) L Hemoglobin 13.0 G/DL (14.2-18.0) L Hematocrit 37.3 % (42.0-52.0) L Mean Corpuscular Volume 83 FL (80-99) Mean Corpuscular Hemoglobin 28.9 PG (27.0-31.0) Mean Corpuscular Hemoglobin Concent 34.9 G/DL (32.0-36.0) Red Cell Distribution Width 13.1 % (11.6-14.8) Platelet Count 174 K/UL (150-450) Mean Platelet Volume 8.2 FL (6.5-10.1) Neutrophils (%) (Auto) 49.0 % (45.0-75.0) Lymphocytes (%) (Auto) 39.0 % (20.0-45.0) Monocytes (%) (Auto) 8.4 % (1.0-10.0) Eosinophils (%) (Auto) 3.0 % (0.0-3.0) Basophils (%) (Auto) 0.6 % (0.0-2.0) Sodium Level 141 MMOL/L (136-145) Potassium Level 4.0 MMOL/L (3.5-5.1) Chloride Level 107 MMOL/L (98-107) Carbon Dioxide Level 28 MMOL/L (21-32) Anion Gap 6 mmol/L (5-15) Blood Urea Nitrogen 17 mg/dL (7-18) Creatinine 1.3 MG/DL (0.55-1.30) Estimat Glomerular Filtration Rate > 60 mL/min (>60) Glucose Level 97 MG/DL (74-106) Calcium Level 9.4 MG/DL (8.5-10.1) Neurologic Exam Objective PHYSICAL EXAMINATION: GENERAL: He is a well-developed and well-nourished, black gentleman, lying in bed, in no acute distress. HEAD: Normocephalic and atraumatic. EENT: Examination benign. NECK: No neck rigidity was observed. NEUROLOGIC EXAMINATION: MENTAL STATUS EXAMINATION: He was awake and alert. He was oriented to [facility] and August 2017. He was able to recall 3/3 words immediately, but could only remember 2/3 words in 1 minute and 3 minutes. He was able to remember presidents Trump through [place]. His mathematical skills were impaired. His visuospatial function was also impaired. SPEECH: He had a mild dysarthria. LANGUAGE: He had anomia for low-frequency words. CRANIAL NERVE EXAMINATION: II: He had a left visual field deficit on confrontation testing. III, IV & : External ocular movements were full and the pupils 3 mm in diameter, equal, round, regular, and reactive to light. V: He had normal facial sensations, and the temporales, masseters, and pterygoids functioned normally. VII: He had a left seventh central facial paresis. VIII: He was able to hear well bilaterally and had no nystagmus. IX: The palate moved symmetrically on phonation. X: He had no hoarseness of voice. XI: The sternocleidomastoids and trapezii functioned normally. XII: The tongue was in the midline without any fasciculations or atrophy. MOTOR SYSTEM: The tone was increased on the left side with a significant degree of spasticity. Examination of muscle mass revealed significant wasting of his left upper extremity with contractures at the fingers and elbow. Examination of power was difficult to perform because of varying degrees of effort, but he had a definite left upper extremity plegia, left lower extremity paresis and mild right lower extremity paresis. SENSORY EXAMINATION: He was able to discern between pinprick and light touch. COORDINATION: He performed well on [id number] on the right side. He was unable to perform on the left side. REFLEXES: Trace+ on the right and 1+ on the left at the biceps, triceps, and brachioradialis. Trace+ on the left and 2+ on the right at the knees, 0 at both ankles. The plantar response was flexor on the right and extensor on the left. STANCE & GAIT: Could not be tested. Impression/Recommendations Diagnostic Impression 1. Mr. Lenard Kam is a 67-year-old, right-handed, black gentleman, with a past history of hypertension and cerebrovascular disease with stroke with left- sided weakness a few years ago who apparently had a seizure at his [facility] on 08/19/2017. The type of seizure is unknown to us, as it has not been described to us. 2. He feels well. He has had no further seizures. He has tolerated the Keppra well. He denies any new neurologic symptoms. 3. On neurological examination, at this time, he does demonstrate problems with orientation, recent and remote memory, visuospatial function, higher cognitive function, and language. He also has a dysarthria, left visual field deficit, left seventh central facial paresis, left upper greater than lower extremity paresis, mild right lower extremity paresis, left-sided agraphesthesia, brisk deep tendon reflexes on the left compared to the right, but the reflexes are globally diminished and an extensor plantar response on the left side. 4. The CT scan of the brain without contrast reveals an old right middle cerebral artery territory infarct. 5. Laboratory data obtained thus far revealed a CBC with a WBC count elevated to 12,800. A chemistry panel that is relatively benign. Negative urine toxicology screen and negative urine analysis. 6. The EEG revealed right hemispheric dysfunction but no inter-ictal phenomena. 7. The patient's history and neurological examination are most compatible with a new onset seizure, most probably focal with secondary generalization. However , the exact type is unclear to us as the exact description of the seizure was not given to us. The most likely etiology for the seizure would be an irritable epileptogenic focus in the area where he had his prior stroke. Recommendations 1. Continue present management. 2. PT/OT to mobilize. 3. Continue Keppra for seizure prophylaxis. 4. Can be discharged from neurologic point of view. Eduardo Kaur M.D., M.S.P.H. EDUARDO KAUR Aug 23, 2017 12:57
[2017-08-23 16:03] VITALS: BP 132/71
[2017-08-23 19:57] VITALS: BP 106/63
[2017-08-24] VITALS: BP 107/66
[2017-08-24 04:00] VITALS: BP 111/63
[2017-08-24 07:20] LABS: ANION GAP 8 mmol/L (5-15); BLOOD UREA NITROGEN 18 mg/dL (7-18); CALCIUM 8.9 MG/DL (8.5-10.1); CARBON DIOXIDE 28 MMOL/L (21-32); CHLORIDE 106 MMOL/L (98-107); POTASSIUM 3.9 MMOL/L (3.5-5.1); SODIUM 142 MMOL/L (136-145)
[2017-08-24 08:00] VITALS: BP 129/78
--- NOTE | 2017-08-24 09:09 | Pulmonology Progress Note ---
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 Subjective ROS Limited/Unobtainable: No Constitutional: Reports: no symptoms HEENT: Repors: no symptoms Respiratory: Reports: no symptoms Allergies: Coded Allergies: No Known Allergies (Unverified , 08/19/17) Objective Last 24 Hour Vital Signs Date Time Temp Pulse Resp B/P (MAP) Pulse Ox O2 Delivery O2 Flow Rate FiO2 08/24/17 04:00 84 08/24/17 04:00 97.7 84 20 111/63 96 Room Air 97.7 08/24/17 00:00 97.7 89 20 107/66 93 Room Air 97.7 08/24/17 00:00 88 08/23/17 20:00 97 08/23/17 19:57 97.9 87 20 106/63 94 Room Air 97.9 08/23/17 16:03 98.2 110 21 132/71 96 Room Air 98.2 08/23/17 16:00 117 08/23/17 12:00 97.5 106 21 141/75 97 Room Air 97.5 08/23/17 12:00 102 Intake and Output 08/23/17 08/24/17 19:00 07:00 Intake Total 860 ml 100 ml Output Total 350 ml 300 ml Balance 510 ml -200 ml Intake Oral 860 ml 100 ml Output Urine Total 350 ml 300 ml # Bowel Movements 1 General Appearance: WD/WN HEENT: normocephalic, atraumatic Respiratory/Chest: chest wall non-tender, lungs clear Cardiovascular: normal peripheral pulses, normal rate Abdomen: normal bowel sounds, soft, non tender Genitourinary: normal external genitalia Extremities: no cyanosis Skin: no lesions Neurologic/Psychiatric: bulb filler II-XII grossly normal Laboratory Tests 08/24/17 05:40: White Blood Count [Pending], Red Blood Count [Pending], Hemoglobin [Pending], Hematocrit [Pending], Mean Corpuscular Volume [Pending], Mean Corpuscular Hemoglobin [Pending], Mean Corpuscular Hemoglobin Concent [Pending], Red Cell Distribution Width [Pending], Platelet Count [Pending], Mean Platelet Volume [ Pending], Neutrophils (%) (Auto) [Pending], Lymphocytes (%) (Auto) [Pending], Monocytes (%) (Auto) [Pending], Eosinophils (%) (Auto) [Pending], Basophils (%) (Auto) [Pending], Sodium Level 142, Potassium Level 3.9, Chloride Level 106, Carbon Dioxide Level 28, Anion Gap 8, Blood Urea Nitrogen 18, Creatinine 1.0, Estimat Glomerular Filtration Rate > 60, Glucose Level 90, Calcium Level 8.9 Current Medications Medications (Trade) Dose Ordered Sig/Rustam Route PRN Reason Start Time Stop Time Status Last Admin Dose Admin Acetaminophen (Tylenol) 650 mg Q4H PRN ORAL fever (temp>100.5F) 08/21/17 15:30 09/18/17 15:29 Al Hydroxide/Mg Hydroxide (Mylanta II) 30 ml Q6H PRN ORAL dyspepsia 08/21/17 15:30 09/18/17 15:29 Amlodipine Besylate (Norvasc) 10 mg DAILY ORAL 08/22/17 09:00 09/19/17 08:59 08/23/17 08:47 Atorvastatin Calcium (Lipitor) 10 mg BEDTIME ORAL 08/21/17 21:00 09/18/17 20:59 08/23/17 20:53 Dextrose (Dextrose 50%) 25 ml STAT PRN IV BS 60-69mg/dl 08/21/17 15:30 09/20/17 15:29 Dextrose (Dextrose 50%) 50 ml STAT PRN IV BS less than 60mg/dl 08/21/17 15:30 09/20/17 15:29 Divalproex Sodium (Depakote ER) 250 mg EVERY 12 HOURS ORAL 08/21/17 21:00 09/19/17 08:59 08/23/17 20:53 Heparin Sodium (Porcine) (Heparin 5000 units/ml) 5,000 units EVERY 12 HOURS SUBQ 08/21/17 21:00 09/18/17 20:59 08/23/17 20:54 Lisinopril (Prinivil) 20 mg DAILY ORAL 08/22/17 09:00 09/19/17 08:59 08/23/17 08:47 Lorazepam (Ativan 2mg/ml 1ml) 2 mg Q1H PRN IV seizures 08/21/17 15:30 08/28/17 15:29 Lorazepam (Ativan) 1 mg Q6H PRN ORAL For Anxiety 08/21/17 15:45 08/27/17 03:44 Morphine Sulfate (Morphine Sulfate) 1 mg Q4H PRN IVP For Pain 08/21/17 17:00 08/28/17 16:59 Ondansetron HCl (Zofran) 4 mg Q6H PRN IVP Nausea & Vomiting 08/21/17 15:30 09/18/17 15:29 Polyethylene Glycol (Miralax) 17 gm HSPRN PRN ORAL Constipation 08/21/17 20:00 09/20/17 19:59 Risperidone (RisperDAL) 1 mg DAILY ORAL 08/22/17 09:00 09/19/17 08:59 08/23/17 08:47 Zolpidem Tartrate (Ambien) 5 mg HSPRN PRN ORAL Insomnia 08/21/17 20:00 08/28/17 19:59 Dahlia Lord MD Aug 24, 2017 09:09
--- NOTE | 2017-08-24 09:11 | General Progress Note ---
Assessment/Plan Problem List: (1) Hypertension ICD Codes: I10 - Essential (primary) hypertension SNOMED: 17479701 (2) History of CVA (cerebrovascular accident) ICD Codes: Z86.73 - Personal history of transient ischemic attack (TIA), and cerebral infarction without residual deficits SNOMED: 924475247 (3) COPD (chronic obstructive pulmonary disease) ICD Codes: J44.9 - Chronic obstructive pulmonary disease, unspecified SNOMED: 33431412 (4) Seizure disorder ICD Codes: G40.909 - Epilepsy, unspecified, not intractable, without status epilepticus SNOMED: 109423418 (5) Left-sided weakness ICD Codes: R53.1 - Weakness SNOMED: 865502294 (6) Tachycardia ICD Codes: R00.0 - Tachycardia, unspecified SNOMED: 5099391 Status: unchanged Assessment/Plan ot pt diet cbc bmp am seizure control dc plan if cardio clears Subjective Constitutional: Reports: weakness Allergies: Coded Allergies: No Known Allergies (Unverified , 08/19/17) All Systems: reviewed and negative except above Subjective calm in bed Objective Last 24 Hour Vital Signs Date Time Temp Pulse Resp B/P (MAP) Pulse Ox O2 Delivery O2 Flow Rate FiO2 08/24/17 04:00 84 08/24/17 04:00 97.7 84 20 111/63 96 Room Air 97.7 08/24/17 00:00 97.7 89 20 107/66 93 Room Air 97.7 08/24/17 00:00 88 08/23/17 20:00 97 08/23/17 19:57 97.9 87 20 106/63 94 Room Air 97.9 08/23/17 16:03 98.2 110 21 132/71 96 Room Air 98.2 08/23/17 16:00 117 08/23/17 12:00 97.5 106 21 141/75 97 Room Air 97.5 08/23/17 12:00 102 Intake and Output 08/23/17 08/24/17 19:00 07:00 Intake Total 860 ml 100 ml Output Total 350 ml 300 ml Balance 510 ml -200 ml Intake Oral 860 ml 100 ml Output Urine Total 350 ml 300 ml # Bowel Movements 1 Laboratory Tests 08/24/17 05:40: White Blood Count [Pending], Red Blood Count [Pending], Hemoglobin [Pending], Hematocrit [Pending], Mean Corpuscular Volume [Pending], Mean Corpuscular Hemoglobin [Pending], Mean Corpuscular Hemoglobin Concent [Pending], Red Cell Distribution Width [Pending], Platelet Count [Pending], Mean Platelet Volume [ Pending], Neutrophils (%) (Auto) [Pending], Lymphocytes (%) (Auto) [Pending], Monocytes (%) (Auto) [Pending], Eosinophils (%) (Auto) [Pending], Basophils (%) (Auto) [Pending], Sodium Level 142, Potassium Level 3.9, Chloride Level 106, Carbon Dioxide Level 28, Anion Gap 8, Blood Urea Nitrogen 18, Creatinine 1.0, Estimat Glomerular Filtration Rate > 60, Glucose Level 90, Calcium Level 8.9 Height (Feet): 5 Height (Inches): 9.00 Weight (Pounds): 190 General Appearance: lethargic EENT: normal ENT inspection Neck: normal alignment Cardiovascular: normal peripheral pulses, normal rate, regular rhythm Respiratory/Chest: chest wall non-tender, lungs clear, normal breath sounds Abdomen: normal bowel sounds, non tender, soft Extremities: normal inspection Edema: no edema noted Arm (L), no edema noted Arm (R), no edema noted Leg (L), no edema noted Leg (R), no edema noted Pedal (L), no edema noted Pedal (R), no edema noted Generalized Neurologic: responsive, motor weakness Skin: normal pigmentation, warm/dry FEROZ SALCEDO Aug 24, 2017 09:11
[2017-08-24] MEDS: Depakote ER 250mg tab ORAL SCH ×2 (09:39→20:56)
[2017-08-24] MEDS: Lisinopril 20mg tab ORAL SCH (09:40)
[2017-08-24] MEDS: Heparin 5000 units/ml inj SUBQ SCH ×2 (09:41→20:56)
[2017-08-24 09:53] LABS: BASOPHILS % (AUTO) 0.7 % (0.0-2.0); EOSINOPHILS % (AUTO) 3.2 % (0.0-3.0); HEMOGLOBIN 12.7 G/DL (14.2-18.0); LYMPHOCYTES % (AUTO) 47.9 % (20.0-45.0); MEAN CORPUSCULAR VOLUME 83 FL (80-99); MONOCYTES % (AUTO) 6.9 % (1.0-10.0); NEUTROPHILS % (AUTO) 41.3 % (45.0-75.0); PLATELET COUNT 166 K/UL (150-450); RED BLOOD COUNT 4.22 M/UL (4.70-6.10); RED CELL DISTRIBUTION WIDTH 13.1 % (11.6-14.8); WHITE BLOOD COUNT 8.7 K/UL (4.8-10.8)
--- NOTE | 2017-08-24 10:15 | Progress Note ---
DATE: 08/24/2017 SUBJECTIVE: The patient is a 67-year-old male patient with new-onset seizures. The patient has confusion and disorganized thought process worsened by stress of his medical illness and psychosis. That is why, his attending has requested daily psychiatric consultation. MENTAL STATUS EXAMINATION: This is a 67-year-old male. Appearance, disheveled. Irritable and agitated. Affect, guarded and restricted. Intellect poor. Mood, depressed and anxious. Motor activity, psychomotor agitation. Attention span is poor. Orientation x3. Speech is pressured. Thought process, disorganized and illogical. Thought content, auditory hallucinations and paranoid delusions. Insight and judgement is poor. Denies suicidal or homicidal thoughts. DIAGNOSIS: Paranoid schizophrenia, acute exacerbation. PLAN: Treat him with Risperdal 1 mg twice a day. An 18 to 20 minutes supportive therapy is provided. Chart reviewed. Discussed with staff. Seen and assessed at bedside. Olga Lidia De Jesus M.D. DR: Elisha JOB#: [id number] CC:
[2017-08-24 12:00] VITALS: BP 132/76
[2017-08-24 16:00] VITALS: BP 129/78
[2017-08-24 20:00] VITALS: BP 111/79
--- NOTE | 2017-08-24 20:11 | Neurology Progress Note ---
Interim History Interim History Interim History Mr. Weinberg continues to feel much better. He continues to be free of seizures. He is tolerating the Keppra well. He denies any new neurologic symptoms. He specifically denies any weakness on one side or the other, numbness on one side or the other, problems with speech, problems with language, or problems with vision. He is eager to go home. Review of Systems Neuro Review of Systems Benign. Objective Physical Exam Last Vital Signs Date Time Temp Pulse Resp B/P (MAP) Pulse Ox O2 Delivery O2 Flow Rate FiO2 08/24/17 16:00 97.5 114 18 129/78 95 Room Air 97.5 Laboratory Tests Test 08/24/17 05:40 White Blood Count 8.7 K/UL (4.8-10.8) Red Blood Count 4.22 M/UL (4.70-6.10) L Hemoglobin 12.7 G/DL (14.2-18.0) L Hematocrit 35.0 % (42.0-52.0) L Mean Corpuscular Volume 83 FL (80-99) Mean Corpuscular Hemoglobin 30.0 PG (27.0-31.0) Mean Corpuscular Hemoglobin Concent 36.2 G/DL (32.0-36.0) H Red Cell Distribution Width 13.1 % (11.6-14.8) Platelet Count 166 K/UL (150-450) Mean Platelet Volume 7.9 FL (6.5-10.1) Neutrophils (%) (Auto) 41.3 % (45.0-75.0) L Lymphocytes (%) (Auto) 47.9 % (20.0-45.0) H Monocytes (%) (Auto) 6.9 % (1.0-10.0) Eosinophils (%) (Auto) 3.2 % (0.0-3.0) H Basophils (%) (Auto) 0.7 % (0.0-2.0) Sodium Level 142 MMOL/L (136-145) Potassium Level 3.9 MMOL/L (3.5-5.1) Chloride Level 106 MMOL/L (98-107) Carbon Dioxide Level 28 MMOL/L (21-32) Anion Gap 8 mmol/L (5-15) Blood Urea Nitrogen 18 mg/dL (7-18) Creatinine 1.0 MG/DL (0.55-1.30) Estimat Glomerular Filtration Rate > 60 mL/min (>60) Glucose Level 90 MG/DL (74-106) Calcium Level 8.9 MG/DL (8.5-10.1) Neurologic Exam Objective PHYSICAL EXAMINATION: GENERAL: He is a well-developed and well-nourished, black gentleman, lying in bed, in no acute distress. HEAD: Normocephalic and atraumatic. EENT: Examination benign. NECK: No neck rigidity was observed. NEUROLOGIC EXAMINATION: MENTAL STATUS EXAMINATION: He was awake and alert. He was oriented to [facility] and August 2017. He was able to recall 3/3 words immediately, but could only remember 2/3 words in 1 minute and 3 minutes. He was able to remember presidents Trump through [place]. His mathematical skills were impaired. His visuospatial function was also impaired. SPEECH: He had a mild dysarthria. LANGUAGE: He had anomia for low-frequency words. CRANIAL NERVE EXAMINATION: II: He had a left visual field deficit on confrontation testing. III, IV & : External ocular movements were full and the pupils 3 mm in diameter, equal, round, regular, and reactive to light. V: He had normal facial sensations, and the temporales, masseters, and pterygoids functioned normally. VII: He had a left seventh central facial paresis. VIII: He was able to hear well bilaterally and had no nystagmus. IX: The palate moved symmetrically on phonation. X: He had no hoarseness of voice. XI: The sternocleidomastoids and trapezii functioned normally. XII: The tongue was in the midline without any fasciculations or atrophy. MOTOR SYSTEM: The tone was increased on the left side with a significant degree of spasticity. Examination of muscle mass revealed significant wasting of his left upper extremity with contractures at the fingers and elbow. Examination of power was difficult to perform because of varying degrees of effort, but he had a definite left upper extremity plegia, left lower extremity paresis and mild right lower extremity paresis. SENSORY EXAMINATION: He was able to discern between pinprick and light touch. COORDINATION: He performed well on [id number] on the right side. He was unable to perform on the left side. REFLEXES: Trace+ on the right and 1+ on the left at the biceps, triceps, and brachioradialis. Trace+ on the left and 2+ on the right at the knees, 0 at both ankles. The plantar response was flexor on the right and extensor on the left. STANCE & GAIT: Could not be tested. Impression/Recommendations Diagnostic Impression 1. Mr. Lenard Kam is a 67-year-old, right-handed, black gentleman, with a past history of hypertension and cerebrovascular disease with stroke with left- sided weakness a few years ago who apparently had a seizure at his residential on 08/19/2017. The type of seizure is unknown to us, as it has not been described to us. 2. He feels well. He has had no further seizures. He has tolerated the Keppra well. He denies any new neurologic symptoms. 3. On neurological examination, at this time, he does demonstrate problems with orientation, recent and remote memory, visuospatial function, higher cognitive function, and language. He also has a dysarthria, left visual field deficit, left seventh central facial paresis, left upper greater than lower extremity paresis, mild right lower extremity paresis, left-sided agraphesthesia, brisk deep tendon reflexes on the left compared to the right, but the reflexes are globally diminished and an extensor plantar response on the left side. 4. The CT scan of the brain without contrast reveals an old right middle cerebral artery territory infarct. 5. Laboratory data obtained thus far revealed a CBC with a WBC count elevated to 12,800. A chemistry panel that is relatively benign. Negative urine toxicology screen and negative urine analysis. 6. The EEG revealed right hemispheric dysfunction but no inter-ictal phenomena. 7. The patient's history and neurological examination are most compatible with a new onset seizure, most probably focal with secondary generalization. However , the exact type is unclear to us as the exact description of the seizure was not given to us. The most likely etiology for the seizure would be an irritable epileptogenic focus in the area where he had his prior stroke. Recommendations 1. Continue present management. 2. PT/OT to mobilize. 3. Continue Keppra for seizure prophylaxis. 4. Can be discharged from neurologic point of view. Eduardo Kaur M.D., M.S.P.H. EDUARDO KAUR Aug 24, 2017 20:11
[2017-08-25] VITALS: BP 112/71
--- NOTE | 2017-08-25 02:15 | Consultation ---
DATE OF CONSULTATION: 08/24/2017 NOTE: "POOR AUDIO QUALITY" CONSULTING PHYSICIAN: Olga Lidia De Jesus M.D. HISTORY: The patient is a 67-year-old male patient with new onset of seizures, but he continues to have some mood lability, confusion, and disorganized thought process, worsened by stress of his medical illness. He does have some confusion, disorganized thought process, and mood lability worsened by stress of his medical illness and he has overlying diagnosis of paranoid schizophrenia in acute exacerbation. He does have some confusion and disorganized thought process. Cognition has declined below baseline, worsened by stress of his medical illness. MENTAL STATUS EXAMINATION: This is a 67-year-old male. Appearance disheveled. Attitude, irritable and agitated. Affect guarded and restricted. Intellect poor. Mood, depressed and anxious. Motor activity, psychomotor agitation. Attention span is poor. Orientation x2. Speech is low volume and slurred. Thought process, disorganized. Thought content, auditory hallucinations and paranoid delusions. Insight and judgment is poor. DIAGNOSIS: Paranoid schizophrenia, acute exacerbation. PLAN: Plan for this patient is to treat him with Risperdal 1 mg twice a day. Provided 18 to 20 minutes of supportive therapy. Chart reviewed. Discussed with staff. The patient was seen and assessed at bedside. The patient will continue to be followed daily by Psychiatry to prevent any further decline in his cognition and to . Olga Lidia De Jesus M.D. DR: JACINTO JOB#: [id number] CC:
[2017-08-25 04:00] VITALS: BP 131/79
[2017-08-25 08:00] VITALS: BP 138/77
[2017-08-25] MEDS: Depakote ER 250mg tab ORAL SCH (08:21)
[2017-08-25] MEDS: Lisinopril 20mg tab ORAL SCH (08:23)
[2017-08-25] MEDS: Heparin 5000 units/ml inj SUBQ SCH (08:24)
--- NOTE | 2017-08-25 08:30 | General Progress Note ---
Assessment/Plan Problem List: (1) Hypertension ICD Codes: I10 - Essential (primary) hypertension SNOMED: 18652615 (2) History of CVA (cerebrovascular accident) ICD Codes: Z86.73 - Personal history of transient ischemic attack (TIA), and cerebral infarction without residual deficits SNOMED: 434322943 (3) COPD (chronic obstructive pulmonary disease) ICD Codes: J44.9 - Chronic obstructive pulmonary disease, unspecified SNOMED: 50323053 (4) Seizure disorder ICD Codes: G40.909 - Epilepsy, unspecified, not intractable, without status epilepticus SNOMED: 960413903 (5) Left-sided weakness ICD Codes: R53.1 - Weakness SNOMED: 282765989 (6) Tachycardia ICD Codes: R00.0 - Tachycardia, unspecified SNOMED: 6067188 Status: stable, progressing, tolerating diet Assessment/Plan ot pt diet cbc bmp am seizure control dc plan if cardio clears Subjective Constitutional: Reports: weakness Allergies: Coded Allergies: No Known Allergies (Unverified , 08/19/17) All Systems: reviewed and negative except above Subjective calm in bed Objective Last 24 Hour Vital Signs Date Time Temp Pulse Resp B/P (MAP) Pulse Ox O2 Delivery O2 Flow Rate FiO2 08/25/17 08:23 138/77 08/25/17 08:22 103 138/77 08/25/17 04:00 92 08/25/17 04:00 97.9 101 20 131/79 95 Room Air 97.9 08/25/17 00:00 97.5 85 20 112/71 96 Room Air 97.5 08/25/17 00:00 87 08/24/17 20:00 101 08/24/17 20:00 98.4 110 20 111/79 95 Room Air 98.4 08/24/17 16:00 97.5 114 18 129/78 95 Room Air 97.5 08/24/17 16:00 108 08/24/17 12:00 108 08/24/17 12:00 97.7 114 18 132/76 97 Room Air 97.7 08/24/17 09:40 136/75 08/24/17 09:38 97 136/75 Intake and Output 08/24/17 08/25/17 19:00 07:00 Intake Total 480 ml Output Total 400 ml 600 ml Balance 80 ml -600 ml Intake Oral 480 ml Output Urine Total 400 ml 600 ml # Bowel Movements 1 Height (Feet): 5 Height (Inches): 9.00 Weight (Pounds): 190 General Appearance: lethargic EENT: normal ENT inspection Neck: normal alignment Cardiovascular: normal peripheral pulses, normal rate, regular rhythm Respiratory/Chest: chest wall non-tender, lungs clear, normal breath sounds Abdomen: normal bowel sounds, non tender, soft Extremities: normal inspection Edema: no edema noted Arm (L), no edema noted Arm (R), no edema noted Leg (L), no edema noted Leg (R), no edema noted Pedal (L), no edema noted Pedal (R), no edema noted Generalized Neurologic: responsive, motor weakness Skin: normal pigmentation, warm/dry FEROZ SALCEDO Aug 25, 2017 08:30
[2017-08-25 08:58] LABS: BASOPHILS % (AUTO) 0.8 % (0.0-2.0); EOSINOPHILS % (AUTO) 2.1 % (0.0-3.0); HEMATOCRIT 37.3 % (42.0-52.0); HEMOGLOBIN 13.2 G/DL (14.2-18.0); LYMPHOCYTES % (AUTO) 44.3 % (20.0-45.0); MEAN CORPUSCULAR VOLUME 83 FL (80-99); MONOCYTES % (AUTO) 5.6 % (1.0-10.0); NEUTROPHILS % (AUTO) 47.3 % (45.0-75.0); PLATELET COUNT 142 K/UL (150-450); RED BLOOD COUNT 4.51 M/UL (4.70-6.10); RED CELL DISTRIBUTION WIDTH 12.7 % (11.6-14.8); WHITE BLOOD COUNT 8.1 K/UL (4.8-10.8)
[2017-08-25 09:38] LABS: ANION GAP 12 mmol/L (5-15); BLOOD UREA NITROGEN 21 mg/dL (7-18); CALCIUM 9.3 MG/DL (8.5-10.1); CARBON DIOXIDE 24 MMOL/L (21-32); CHLORIDE 106 MMOL/L (98-107); CREATININE 0.9 MG/DL (0.55-1.30); POTASSIUM 3.9 MMOL/L (3.5-5.1); SODIUM 142 MMOL/L (136-145)
[2017-08-25 12:00] VITALS: BP 140/83
--- NOTE | 2017-08-25 14:49 | Pulmonology Progress Note ---
Assessment/Plan Problems: (1) Tachycardia (2) Seizure disorder (3) COPD (chronic obstructive pulmonary disease) (4) Left-sided weakness (5) Hypertension (6) History of CVA (cerebrovascular accident) Assessment/Plan no new complains pt is tachycardic, at 105, less than yesterday, regular f/u cardiology recommendations symptomatic treatment f/u Neurology recommendations for seizure dvt prophylaxis med/surg if ok with [facility] consultant Subjective ROS Limited/Unobtainable: No Constitutional: Reports: no symptoms HEENT: Repors: no symptoms Respiratory: Reports: no symptoms Cardiovascular: Reports: no symptoms Allergies: Coded Allergies: No Known Allergies (Unverified , 08/19/17) Objective Last 24 Hour Vital Signs Date Time Temp Pulse Resp B/P (MAP) Pulse Ox O2 Delivery O2 Flow Rate FiO2 08/25/17 12:00 97.5 110 18 140/83 95 Room Air 97.5 08/25/17 12:00 103 08/25/17 08:23 138/77 08/25/17 08:22 103 138/77 08/25/17 08:00 92 08/25/17 08:00 97.5 103 20 138/77 95 Room Air 97.5 08/25/17 04:00 92 08/25/17 04:00 97.9 101 20 131/79 95 Room Air 97.9 08/25/17 00:00 97.5 85 20 112/71 96 Room Air 97.5 08/25/17 00:00 87 08/24/17 20:00 101 08/24/17 20:00 98.4 110 20 111/79 95 Room Air 98.4 08/24/17 16:00 97.5 114 18 129/78 95 Room Air 97.5 08/24/17 16:00 108 Intake and Output 08/24/17 08/25/17 19:00 07:00 Intake Total 480 ml Output Total 400 ml 600 ml Balance 80 ml -600 ml Intake Oral 480 ml Output Urine Total 400 ml 600 ml # Bowel Movements 1 General Appearance: WD/WN HEENT: normocephalic, atraumatic Respiratory/Chest: chest wall non-tender, lungs clear Cardiovascular: normal peripheral pulses, normal rate, regularly irregular Abdomen: normal bowel sounds, soft, non tender Genitourinary: normal external genitalia Extremities: no cyanosis Neurologic/Psychiatric: mammographer II-XII grossly normal Laboratory Tests 08/25/17 07:58: White Blood Count 8.1, Red Blood Count 4.51L, Hemoglobin 13.2L, Hematocrit 37.3L , Mean Corpuscular Volume 83, Mean Corpuscular Hemoglobin 29.3, Mean Corpuscular Hemoglobin Concent 35.4, Red Cell Distribution Width 12.7, Platelet Count 142L, Mean Platelet Volume 7.5, Neutrophils (%) (Auto) 47.3, Lymphocytes ( %) (Auto) 44.3, Monocytes (%) (Auto) 5.6, Eosinophils (%) (Auto) 2.1, Basophils (%) (Auto) 0.8, Sodium Level 142, Potassium Level 3.9, Chloride Level 106, Carbon Dioxide Level 24, Anion Gap 12, Blood Urea Nitrogen 21H, Creatinine 0.9, Estimat Glomerular Filtration Rate > 60, Glucose Level 110H, Calcium Level 9.3 Current Medications Medications (Trade) Dose Ordered Sig/Rustam Route PRN Reason Start Time Stop Time Status Last Admin Dose Admin Acetaminophen (Tylenol) 650 mg Q4H PRN ORAL fever (temp>100.5F) 08/21/17 15:30 09/18/17 15:29 Al Hydroxide/Mg Hydroxide (Mylanta II) 30 ml Q6H PRN ORAL dyspepsia 08/21/17 15:30 09/18/17 15:29 Amlodipine Besylate (Norvasc) 10 mg DAILY ORAL 08/22/17 09:00 09/19/17 08:59 08/25/17 08:22 Atorvastatin Calcium (Lipitor) 10 mg BEDTIME ORAL 08/21/17 21:00 09/18/17 20:59 08/24/17 20:56 Dextrose (Dextrose 50%) 25 ml STAT PRN IV BS 60-69mg/dl 08/21/17 15:30 09/20/17 15:29 Dextrose (Dextrose 50%) 50 ml STAT PRN IV BS less than 60mg/dl 08/21/17 15:30 09/20/17 15:29 Divalproex Sodium (Depakote ER) 250 mg EVERY 12 HOURS ORAL 08/21/17 21:00 09/19/17 08:59 08/25/17 08:21 Heparin Sodium (Porcine) (Heparin 5000 units/ml) 5,000 units EVERY 12 HOURS SUBQ 08/21/17 21:00 09/18/17 20:59 08/25/17 08:24 Lisinopril (Prinivil) 20 mg DAILY ORAL 08/22/17 09:00 09/19/17 08:59 08/25/17 08:23 Lorazepam (Ativan 2mg/ml 1ml) 2 mg Q1H PRN IV seizures 08/21/17 15:30 08/28/17 15:29 Lorazepam (Ativan) 1 mg Q6H PRN ORAL For Anxiety 08/21/17 15:45 08/27/17 03:44 Morphine Sulfate (Morphine Sulfate) 1 mg Q4H PRN IVP For Pain 08/21/17 17:00 08/28/17 16:59 Ondansetron HCl (Zofran) 4 mg Q6H PRN IVP Nausea & Vomiting 08/21/17 15:30 09/18/17 15:29 Polyethylene Glycol (Miralax) 17 gm HSPRN PRN ORAL Constipation 08/21/17 20:00 09/20/17 19:59 Risperidone (RisperDAL) 1 mg DAILY ORAL 08/22/17 09:00 09/19/17 08:59 08/25/17 08:22 Zolpidem Tartrate (Ambien) 5 mg HSPRN PRN ORAL Insomnia 08/21/17 20:00 08/28/17 19:59 Dahlia Lord MD Aug 25, 2017 14:49
[2017-08-25 16:00] VITALS: BP 120/73
--- NOTE | 2017-08-25 18:30 | Progress Note ---
DATE: 08/25/2017 SUBJECTIVE: This a 67-year-old male patient with seizure disorder but he has altered mental status and his attending physician requested daily psychiatric consultation. MENTAL STATUS EXAMINATION: This is a 67-year-old male. Appearance is disheveled. Attitude, irritable and agitated. Affect, guarded and restricted. Intellect poor. Mood, depressed and anxious. Motor activity, psychomotor agitation. Attention span is poor. Orientation x2. Speech is pressured. Thought process, disorganized and illogical. Thought content, auditory hallucinations and paranoid delusions. Insight and judgment is poor DIAGNOSIS: Paranoid schizophrenia, acute exacerbation. PLAN: Treat him with Risperdal 1 mg twice a day. Provided 18 to 20 minutes supportive therapy. Seen and assessed at bedside. Chart reviewed and discussed with staff. Olga Lidia De Jesus M.D. DR: Alexandru JOB#: [id number] CC:
--- NOTE | 2017-08-26 16:04 | Diagnostic Imaging Report ---
Indications: Dysphagia Technique: Patient ingested multiple substances under the supervision of speech pathology. Video fluoroscopic recording performed. Total fluoroscopy time 308 seconds. Total dose area product 0.03298 mGycm2 Comparison: none Findings: Trace penetration of thin liquid barium were ingested sequentially with a straw. Delayed initiation of deglutition with early pooling in the vallecula and piriform sinuses. Trace penetration of nectar thick liquid barium were ingested with a straw no aspiration of either substance. Early pooling of honey thick liquid barium and barium puree, no penetration or aspiration. Delay in initiation of deglutition of masticated solid Impression: Positive for penetration of thin and nectar thick liquid barium Please refer to speech pathology report for more detailed analysis
--- NOTE | 2017-08-27 18:11 | Discharge Summary ---
Discharge Summary Discharge Summary Discharge Summary DATE OF ADMISSION: 08/19/2017 DATE OF DISCHARGE: 08/25/2017 CONSULTANTS: Dr. Dahlia Hamm BRIEF HOSPITAL COURSE: Patient is a 67-year-old male, from [facility] was brought in to ED due to witnessed seizure from the [facility]. Per EMS this was the first seizure event. He had a stroke a few months ago that left him with left upper extremity weakness. He has medical history significant for hypertension, CAD, CVA with left hemiparesis. On evaluation at ED, head CT was negative for acute bleed or hemorrhage. He was loaded with Keppra. EKG was in normal sinus rhythm, chest x-ray with no acute process. Blood work was unremarkable except for mild leukocytosis. Urine toxicology was negative. Urinalysis was negative. He was admitted for evaluation of acute onset seizure. He was seen by neurologist and was given Keppra 1 g twice a day. He had a decline in cognition and was seen by a psychiatrist. He was diagnosed with paranoid schizophrenia with acute exacerbation. He was given Risperdal 1 mg daily and Depakote 250 mg twice a day. ESR was 10. RPR was nonreactive. He had an EEG that showed right hemispheric dysfunction but no interictal phenomena. He had tachycardia, echocardiogram done showed ejection fraction 60%. There was no aortic regurgitation, trace mitral regurgitation. He was given PT and OT. He underwent swallow evaluation. He was recommended soft ground with the thick liquids diet and strict aspiration precautions. He was eventually discharged back to [facility]. FINAL DIAGNOSES: New onset seizure Old CVA with left hemiparesis COPD Tachycardia Hypertension Paranoid schizophrenia with acute exacerbation DISPOSITION: Patient was discharged back to [facility]. DISCHARGE MEDICATIONS: Refer to Discharge Medication List. I have been assigned to dictate discharge summary on this account, and I was not involved in the patient's management. Katty Turner NP Aug 27, 2017 18:11
== END 2017-08-25 17:45 | DRG 53 ==
LOC: EDBD 11:41 → EMR 12:29 → 2E 12:41 → EDBEDREQ 13:13 → 3E 08-20 22:00 → 2E 08-21 14:57
DX: G40.89 Other seizures (principal); I69.354 Hemiplegia and hemiparesis following cerebral infarction affecting left non-dominant side; J44.9 Chronic obstructive pulmonary disease, unspecified; F20.0 Paranoid schizophrenia; I10 Essential (primary) hypertension; E78.5 Hyperlipidemia, unspecified; Z87.891 Personal history of nicotine dependence; R00.0 Tachycardia, unspecified
CPT/HCPCS: 36415; 70450; 71045; 74230; 80048; 80053; 80307; 80329; 81003; 82306; 82550; 82607; 82746; 83036; 84443; 84484; 85025; 85651; 86592; 87081; 92610; 93005; 93306; 95819; 99285; J8499

== ENCOUNTER 2017-10-15 00:31 | Inpatient (IN) | payer MEDICARE, MEDICAID ==
[2017-10-15] VITALS (9 sets, daily range): BP systolic 111–153; BP diastolic 70–104
[~2017-10-15] VITALS: Ht 177.8 cm; Wt 94.4 kg
[~2017-10-15 00:31] MED LIST: AMLODIPINE BESY10 MG ORAL; ASPIRIN EC500 M1 ORAL; ATORVASTATIN CA20 MG ORAL; CRANBERRY450 M4 PO; INVEGA SUS234 MG/1.5 IM; LEXAPRO20 MG ORAL; LISINOPRIL10 MG ORAL; METOPROLOL TART50 MG ORAL; MILK OF MA400 MG/51 ORAL; RISPERDAL1 MG PO; VALPROIC ACID250 MG PO
[2017-10-15] MEDS ORDERED: Sodium Chloride 500ML 500 ML IV ONE (01:12)
[2017-10-15 02:16] LABS: APPEARANCE,URINE CLEAR; BILIRUBIN, URINE NEGATIVE (NEGATIVE); GLUCOSE, URINE (UA) NEGATIVE (NEGATIVE); KETONES,URINE 1+ (NEGATIVE); LEUKOCYTE ESTERASE ,URINE 1+ (NEGATIVE); NITRITE,URINE NEGATIVE (NEGATIVE); PH,URINE 6 (4.5-8.0); PROTEIN,URINE 1+ (NEGATIVE); UROBILINOGEN,URINE 1 MG/DL (0.0-1.0)
[2017-10-15 02:29] LABS: COLOR,URINE YELLOW
[2017-10-15] MEDS ORDERED: ASPIRIN81 MG ORAL (02:29)
[2017-10-15] MEDS ORDERED: ATORVASTATIN CA80 MG ORAL (02:29)
[2017-10-15] MEDS ORDERED: METOPROLOL SUCC50 MG ORAL (02:29)
[2017-10-15] MEDS ORDERED: BACLOFEN10 MG ORAL (02:29)
[2017-10-15] MEDS ORDERED: LATANOPROST2.5 ML BOTH EYES (02:29)
[2017-10-15] MEDS ORDERED: RISPERDAL1 MG PO (02:32)
[2017-10-15] MEDS ORDERED: VALPROIC A250 MG/5 M PO (02:32)
[2017-10-15 02:42] LABS: BASOPHILS % (AUTO) 1.1 % (0.0-2.0); EOSINOPHILS % (AUTO) 1.1 % (0.0-3.0); HEMATOCRIT 38.4 % (42.0-52.0); HEMOGLOBIN 14.1 G/DL (14.2-18.0); LYMPHOCYTES % (AUTO) 35.9 % (20.0-45.0); MEAN CORPUSCULAR VOLUME 83 FL (80-99); MONOCYTES % (AUTO) 8.1 % (1.0-10.0); NEUTROPHILS % (AUTO) 53.8 % (45.0-75.0); PLATELET COUNT 198 K/UL (150-450); RED BLOOD COUNT 4.64 M/UL (4.70-6.10); RED CELL DISTRIBUTION WIDTH 12.4 % (11.6-14.8); WHITE BLOOD COUNT 13.5 K/UL (4.8-10.8)
[2017-10-15 02:45] LABS: ANION GAP 6 mmol/L (5-15); BLOOD UREA NITROGEN 22 mg/dL (7-18); CALCIUM 8.9 MG/DL (8.5-10.1); CARBON DIOXIDE 30 MMOL/L (21-32); CHLORIDE 106 MMOL/L (98-107); POTASSIUM 3.6 MMOL/L (3.5-5.1); SODIUM 142 MMOL/L (136-145)
[2017-10-15 03:03] LABS: ALANINE AMINOTRANSFERASE 16 U/L (12-78); ALBUMIN 3.1 G/DL (3.4-5.0); ALBUMIN/GLOBULIN RATIO 0.7 (1.0-2.7); ALKALINE PHOSPHATASE 85 U/L (46-116); ASPARTATE AMINO TRANSFERASE 26 U/L (15-37); BILIRUBIN,TOTAL 0.5 MG/DL (0.2-1.0)
--- NOTE | 2017-10-15 05:00 | Emergency Room Report ---
History of Present Illness General Chief Complaint: Generalized Weakness Source: Patient Present Illness HPI 67-year-old female presents ED for evaluation. Patient brought in from senior care facility for cough and congestion times one day. Patient also weaker than baseline. Afebrile. No reported chest pain. No other aggravating relieving factors. No other associated symptoms Allergies: Coded Allergies: No Known Allergies (Unverified , 08/19/17) Patient History Past Medical History: HTN, CVA/TIA, seizures Past Surgical History: none Pertinent Family History: none Social History: Denies: smoking, alcohol use, drug use Immunizations: UTD Reviewed Nursing Documentation: PMH: Agreed; PSxH: Agreed Nursing Documentation-PMH Hx Cardiac Problems: Yes - ATHEROSCLEROTIC HEART DISEASE,HYPERLIPIDEMIA Hx Hypertension: Yes Hx Cancer: No Hx Gastrointestinal Problems: No Hx Neurological Problems: Yes Hx Cerebrovascular Accident: Yes - Left side Hx Seizures: Yes Review of Systems All Other Systems: negative except mentioned in HPI Physical Exam Vital Signs Date Time Temp Pulse Resp B/P (MAP) Pulse Ox O2 Delivery O2 Flow Rate FiO2 10/15/17 00:21 98.4 93 22 126/82 93 Room Air 98.4 Sp02 EP Interpretation: reviewed, normal General Appearance: no apparent distress, alert, GCS 15, non-toxic Head: normocephalic, atraumatic Eyes: bilateral eye normal inspection, bilateral eye PERRL ENT: hearing grossly normal, normal pharynx, no angioedema, normal voice Neck: full range of motion, supple/symm/no masses Respiratory: chest non-tender, lungs clear, normal breath sounds, speaking full sentences Cardiovascular #1: regular rate, rhythm, no edema Cardiovascular #2: 2+ carotid (R), 2+ carotid (L), 2+ radial (R), 2+ radial (L) , 2+ dorsalis pedis (R), 2+ dorsalis pedis (L) Gastrointestinal: normal bowel sounds, non tender, soft, non-distended, no guarding, no rebound Rectal: deferred Genitourinary: normal inspection, no CVA tenderness Musculoskeletal: back normal, gait/station normal, normal range of motion, non- tender Neurologic: alert, oriented x3, responsive, motor strength/tone normal, sensory intact, speech normal Psychiatric: judgement/insight normal, memory normal, mood/affect normal, no suicidal/homicidal ideation Reflexes: 3+ bicep (R), 3+ bicep (L), 3+ tricep (R), 3+ tricep (L), 3+ knee (R) , 3+ knee (L) Skin: normal color, no rash, warm/dry, well hydrated Lymphatic: no adenopathy Medical Decision Making Diagnostic Impression: Primary Impression: Episode of generalized weakness Additional Impression: Flu-like symptoms ER Course Hospital Course 67-year-old M presenting to ED with congestion, weakness Differential diagnoses include: Pneumonia, CHF exacerbation, pneumothorax, fluid overload Clinical course Patient placed on stretcher. On hall monitor with stable vitals. After initial history and physical, I ordered labs, IV fluids, EKG, chest x-ray, blood cultures, UA. Labs -leukocytosis noted, hemoglobin/hematocrit stable, electrolytes okay, lactate okay CXR - no identifable infiltrate Antibiotics given. IV fluids given Case discussed with Dr. Santos and he agreed to the patient to his service for further care and support I feel this is a highly complex case requiring extensive working including EKG/ Rhythm strip, Xray/CT/US, Blood/urine lab work, repeat exams while in ED, and administration of strong opiates/narcotics for pain control, admission to hospital or close patient follow up. Diagnosis - episode of generalized weakness, flu like symptoms Patient admitted to floor in serious condition Labs Test 10/15/17 01:58 10/15/17 02:15 Urine Color Yellow Urine Appearance Clear Urine pH 6 (4.5-8.0) Urine Specific [place] 1.020 (1.005-1.035) Urine Protein 1+ (NEGATIVE) Urine Glucose (UA) Negative (NEGATIVE) Urine Ketones 1+ (NEGATIVE) Urine Occult Blood Negative (NEGATIVE) Urine Nitrite Negative (NEGATIVE) Urine Bilirubin Negative (NEGATIVE) Urine Urobilinogen 1 MG/DL (0.0-1.0) Urine Leukocyte Esterase 1+ (NEGATIVE) Urine RBC 0-2 /HPF (0 - 0) Urine WBC 0-2 /HPF (0 - 0) Urine Squamous Epithelial Cells None /LPF (NONE/OCC) Urine Bacteria None /HPF (NONE) White Blood Count 13.5 K/UL (4.8-10.8) Red Blood Count 4.64 M/UL (4.70-6.10) Hemoglobin 14.1 G/DL (14.2-18.0) Hematocrit 38.4 % (42.0-52.0) Mean Corpuscular Volume 83 FL (80-99) Mean Corpuscular Hemoglobin 30.3 PG (27.0-31.0) Mean Corpuscular Hemoglobin Concent 36.6 G/DL (32.0-36.0) Red Cell Distribution Width 12.4 % (11.6-14.8) Platelet Count 198 K/UL (150-450) Mean Platelet Volume 7.8 FL (6.5-10.1) Neutrophils (%) (Auto) 53.8 % (45.0-75.0) Lymphocytes (%) (Auto) 35.9 % (20.0-45.0) Monocytes (%) (Auto) 8.1 % (1.0-10.0) Eosinophils (%) (Auto) 1.1 % (0.0-3.0) Basophils (%) (Auto) 1.1 % (0.0-2.0) Sodium Level 142 MMOL/L (136-145) Potassium Level 3.6 MMOL/L (3.5-5.1) Chloride Level 106 MMOL/L (98-107) Carbon Dioxide Level 30 MMOL/L (21-32) Anion Gap 6 mmol/L (5-15) Blood Urea Nitrogen 22 mg/dL (7-18) Creatinine 1.0 MG/DL (0.55-1.30) Estimat Glomerular Filtration Rate > 60 mL/min (>60) Glucose Level 119 MG/DL (74-106) Lactic Acid Level 1.00 mmol/L (0.4-2.0) Calcium Level 8.9 MG/DL (8.5-10.1) Total Bilirubin 0.5 MG/DL (0.2-1.0) Aspartate Amino Transf (AST/SGOT) 26 U/L (15-37) Alanine Aminotransferase (ALT/SGPT) 16 U/L (12-78) Alkaline Phosphatase 85 U/L (46-116) Total Protein 7.8 G/DL (6.4-8.2) Albumin 3.1 G/DL (3.4-5.0) Globulin 4.7 g/dL Albumin/Globulin Ratio 0.7 (1.0-2.7) Chest X-Ray Diagnostic Results Chest X-Ray Diagnostic Results : Chest X-Ray Ordered: Yes # of Views/Limited/Complete: 1 View Indication: Other - cough Interpretation: no consolidation, no effusion, no pneumothorax, no acute cardiopulmonary disease Impression: No acute disease Electronically Signed by: Electronically signed by Km Ramirez MD Last Vital Signs Date Time Temp Pulse Resp B/P (MAP) Pulse Ox O2 Delivery O2 Flow Rate FiO2 10/15/17 03:46 97.0 84 12 145/82 97 Room Air 97.0 Status: improved Disposition: ADMITTED INPATIENT Condition: Serious Referrals: Biju Santos DO (PCP) Km Ramirez MD Oct 15, 2017 05:00
[2017-10-15] MEDS ORDERED: Nitroglycerin Subl 0.4mg tab SL PRN (07:00)
[2017-10-15] MEDS ORDERED: LORazepam Inj 2mg/ml 1ml IV PRN (07:00)
[2017-10-15] MEDS ORDERED: Albuterol/Ipratropium 3ml neb HHN PRN (07:00)
[2017-10-15] MEDS ORDERED: Promethazine/Codeine 5ml UD ORAL PRN (07:00)
[2017-10-15] MEDS: Aspirin Baby 81mg ORAL SCH (08:54)
[2017-10-15] MEDS: Zosyn 3.375gm q8h **Extended infusion IVPB SCH ×4 (08:54→16:59)
[2017-10-15] MEDS: Metoprolol Succinate XL 50mg tab ORAL SCH ×2 (08:54→18:00)
[2017-10-15] MEDS: Lisinopril 20mg tab ORAL SCH (08:54)
[2017-10-15] MEDS: Heparin 5000 units/ml inj SUBQ SCH ×2 (08:55→20:50)
--- NOTE | 2017-10-15 13:20 | Diagnostic Imaging Report ---
Indication: Reason For Exam: WEAK Technique: One view of the chest Comparison: none Findings: Left hemidiaphragm is elevated. Lungs and pleural spaces otherwise clear. The heart size is normal. The aorta is tortuous and ectatic. Upper mediastinum is unremarkable Impression: No acute process
[2017-10-15] MEDS ORDERED: Piperacillin/Tazobactam 2.25 GM in D5W 55 ML IV SCH (14:00)
--- NOTE | 2017-10-15 14:20 | Consultation ---
History of Present Illness General Date patient seen: Oct 15, 2017 Chief Complaint: Generalized Weakness Present Illness HPI 67-year-old male with hx of HTN, CVA/TIA, seizures presented to ED for evaluation of cough and congestion for one day. Patient is also weaker than baseline. Afebrile. No reported chest pain. No other aggravating relieving factors. No other associated symptoms. Pt is awake, but can't provide any history. Allergies: Coded Allergies: No Known Allergies (Unverified , 08/19/17) Medication History Scheduled Amlodipine Besylate* (Amlodipine Besylate*), 10 MG ORAL DAILY, (Reported) Aspirin (Aspirin Ec), 325 MG ORAL DAILY, (Reported) Aspirin* (Aspirin*), 81 MG ORAL DAILY, (Reported) Atorvastatin Calcium* (Atorvastatin Calcium*), 10 MG ORAL BEDTIME, (Reported) Atorvastatin Calcium* (Lipitor*), 80 MG ORAL BEDTIME, (Reported) Baclofen* (Baclofen*), 5 MG ORAL QID, (Reported) Cranberry Fruit Concentrate (Cranberry), 450 MG PO DAILY, (Reported) Escitalopram Oxalate* (Lexapro*), 20 MG ORAL DAILY, (Reported) Latanoprost* (Xalatan*), 1 DROP BOTH EYES BEDTIME, (Reported) Lisinopril* (Lisinopril*), 20 MG ORAL DAILY, (Reported) Magnesium Hydroxide* (Milk Of Magnesia*), 30 ML ORAL DAILY, (Reported) Metoprolol Succinate* (Metoprolol Succinate*), 50 MG ORAL BID, (Reported) Metoprolol Tartrate* (Metoprolol Tartrate*), 50 MG ORAL EVERY 12 HOURS, ( Reported) Paliperidone Palmitate (Invega Sustenna), 234 MG IM every , (Reported) Risperidone* (Risperdal*), 1 MG PO DAILY, (Reported) Risperidone* (Risperdal*), 1 MG PO BID, (Reported) Valproate Sodium (Valproic Acid), 250 MG PO BID, (Reported) Valproic Acid (Valproic Acid), 250 MG PO BID, (Reported) Patient History Healthcare decision maker Resuscitation status Full Code Advanced Directive on File Past Medical/Surgical History Past Medical/Surgical History: (1) History of CVA (cerebrovascular accident) (2) COPD (chronic obstructive pulmonary disease) (3) Hypertension (4) Left-sided weakness Review of Systems All Other Systems: negative except mentioned in HPI Physical Exam General Appearance: WD/WN Lines, tubes and drains: peripheral HEENT: normocephalic, atraumatic Neck: non-tender, normal alignment Respiratory/Chest: chest wall non-tender, rhonchi - left, rhonchi - right Cardiovascular/Chest: normal peripheral pulses, normal rate Abdomen: normal bowel sounds Genitourinary/Rectal: normal genital exam, normal rectal exam Last 24 Hour Vital Signs Date Time Temp Pulse Resp B/P (MAP) Pulse Ox O2 Delivery O2 Flow Rate FiO2 10/15/17 14:13 105 16 98 Room Air 21 10/15/17 14:04 101 18 93 Room Air 21 10/15/17 14:04 101 18 Room Air 21 10/15/17 12:00 97.2 110 18 131/90 96 Room Air 97.2 10/15/17 08:55 108 153/104 10/15/17 08:54 108 153/104 10/15/17 08:54 153/104 10/15/17 08:00 98.0 108 18 153/104 98 Room Air 98.0 10/15/17 06:20 98.2 88 18 141/88 98 Room Air 98.2 10/15/17 05:57 97.2 91 17 129/89 97 Room Air 97.2 10/15/17 05:30 97.2 91 17 129/89 97 Room Air 97.2 10/15/17 03:46 97.0 84 12 145/82 97 Room Air 97.0 10/15/17 02:10 97.0 94 14 137/79 95 Room Air 97.0 10/15/17 00:21 98.4 93 22 126/82 93 Room Air 98.4 Intake and Output 10/14/17 10/15/17 19:00 07:00 Intake Total 0 ml Balance 0 ml Intake Oral 0 ml # Voids 1 Laboratory Tests Test 10/15/17 01:58 10/15/17 02:15 Urine Color Yellow Urine Appearance Clear Urine pH 6 (4.5-8.0) Urine Specific [place] 1.020 (1.005-1.035) Urine Protein 1+ (NEGATIVE) H Urine Glucose (UA) Negative (NEGATIVE) Urine Ketones 1+ (NEGATIVE) H Urine Occult Blood Negative (NEGATIVE) Urine Nitrite Negative (NEGATIVE) Urine Bilirubin Negative (NEGATIVE) Urine Urobilinogen 1 MG/DL (0.0-1.0) H Urine Leukocyte Esterase 1+ (NEGATIVE) H Urine RBC 0-2 /HPF (0 - 0) H Urine WBC 0-2 /HPF (0 - 0) Urine Squamous Epithelial Cells None /LPF (NONE/OCC) Urine Bacteria None /HPF (NONE) White Blood Count 13.5 K/UL (4.8-10.8) H Red Blood Count 4.64 M/UL (4.70-6.10) L Hemoglobin 14.1 G/DL (14.2-18.0) L Hematocrit 38.4 % (42.0-52.0) L Mean Corpuscular Volume 83 FL (80-99) Mean Corpuscular Hemoglobin 30.3 PG (27.0-31.0) Mean Corpuscular Hemoglobin Concent 36.6 G/DL (32.0-36.0) H Red Cell Distribution Width 12.4 % (11.6-14.8) Platelet Count 198 K/UL (150-450) Mean Platelet Volume 7.8 FL (6.5-10.1) Neutrophils (%) (Auto) 53.8 % (45.0-75.0) Lymphocytes (%) (Auto) 35.9 % (20.0-45.0) Monocytes (%) (Auto) 8.1 % (1.0-10.0) Eosinophils (%) (Auto) 1.1 % (0.0-3.0) Basophils (%) (Auto) 1.1 % (0.0-2.0) Sodium Level 142 MMOL/L (136-145) Potassium Level 3.6 MMOL/L (3.5-5.1) Chloride Level 106 MMOL/L (98-107) Carbon Dioxide Level 30 MMOL/L (21-32) Anion Gap 6 mmol/L (5-15) Blood Urea Nitrogen 22 mg/dL (7-18) H Creatinine 1.0 MG/DL (0.55-1.30) Estimat Glomerular Filtration Rate > 60 mL/min (>60) Glucose Level 119 MG/DL (74-106) H Lactic Acid Level 1.00 mmol/L (0.4-2.0) Calcium Level 8.9 MG/DL (8.5-10.1) Total Bilirubin 0.5 MG/DL (0.2-1.0) Aspartate Amino Transf (AST/SGOT) 26 U/L (15-37) Alanine Aminotransferase (ALT/SGPT) 16 U/L (12-78) Alkaline Phosphatase 85 U/L (46-116) Total Protein 7.8 G/DL (6.4-8.2) Albumin 3.1 G/DL (3.4-5.0) L Globulin 4.7 g/dL Albumin/Globulin Ratio 0.7 (1.0-2.7) L Height (Feet): 5 Height (Inches): 10.00 Weight (Pounds): 210 Medications Current Medications Medications (Trade) Dose Ordered Sig/Rustam Route PRN Reason Start Time Stop Time Status Last Admin Dose Admin Albuterol/ Ipratropium (Albuterol/ Ipratropium) 3 ml Q4H PRN HHN dyspnea 10/15/17 07:00 10/20/17 06:59 10/15/17 14:08 Amlodipine Besylate (Norvasc) 10 mg DAILY ORAL 10/15/17 09:00 11/14/17 08:59 10/15/17 08:55 Aspirin (ASA) 81 mg DAILY ORAL 10/15/17 09:00 11/14/17 08:59 10/15/17 08:54 Atorvastatin Calcium (Lipitor) 10 mg BEDTIME ORAL 10/15/17 21:00 11/14/17 20:59 Baclofen (Lioresal) 5 mg QID ORAL 10/15/17 09:00 11/14/17 08:59 10/15/17 10:28 Dextrose (Dextrose 50%) 25 ml STAT PRN IV Hypoglycemia 10/15/17 07:00 11/14/17 06:59 Dextrose (Dextrose 50%) 50 ml STAT PRN IV Hypoglycemia 10/15/17 07:45 11/14/17 07:44 Heparin Sodium (Porcine) (Heparin 5000 units/ml) 5,000 units EVERY 12 HOURS SUBQ 10/15/17 09:00 11/14/17 08:59 10/15/17 08:55 Lisinopril (Prinivil) 20 mg DAILY ORAL 10/15/17 09:00 11/14/17 08:59 10/15/17 08:54 Lorazepam (Ativan 2mg/ml 1ml) 0.5 mg Q4H PRN IV For Anxiety 10/15/17 07:00 10/22/17 06:59 Metoprolol Succinate (Toprol XL) 50 mg BID ORAL 10/15/17 09:00 11/14/17 08:59 10/15/17 08:54 Nitroglycerin (Ntg) 0.4 mg Q5M X 3 DOSES PRN SL Prn Chest Pain 10/15/17 07:00 11/14/17 06:59 Ondansetron HCl (Zofran) 4 mg Q6H PRN IVP Nausea & Vomiting 10/15/17 07:00 11/14/17 06:59 Piperacillin Sod/ Tazobactam Sod 3.375 gm/Dextrose 110 ml @ 27.5 mls/hr Q8H IVPB 10/15/17 09:00 10/22/17 08:59 10/15/17 08:54 Promethazine HCl/ Codeine (Phenergan with Codeine) 5 ml Q6H PRN ORAL cough 10/15/17 07:00 11/14/17 06:59 Risperidone (RisperDAL) 1 mg BID ORAL 10/15/17 09:00 11/14/17 08:59 10/15/17 08:54 Temazepam (Restoril) 15 mg HSPRN PRN ORAL Insomnia 10/15/17 07:00 10/22/17 06:59 Valproic Acid (Depakene) 250 mg BID ORAL 10/15/17 09:00 11/14/17 08:59 10/15/17 08:54 Assessment/Plan Problem List: (1) Acute bronchitis ICD Codes: J20.9 - Acute bronchitis, unspecified SNOMED: 76257715 (2) At high risk for aspiration ICD Codes: Z91.89 - Other specified personal risk factors, not elsewhere classified SNOMED: 562212612 (3) COPD (chronic obstructive pulmonary disease) ICD Codes: J44.9 - Chronic obstructive pulmonary disease, unspecified SNOMED: 76552349 (4) UTI (urinary tract infection) ICD Codes: N39.0 - Urinary tract infection, site not specified SNOMED: 10920934 (5) Sepsis ICD Codes: A41.9 - Sepsis, unspecified organism SNOMED: 81073633 (6) Hypertension ICD Codes: I10 - Essential (primary) hypertension SNOMED: 86898935 (7) Left-sided weakness ICD Codes: R53.1 - Weakness SNOMED: 680805113 (8) History of CVA (cerebrovascular accident) ICD Codes: Z86.73 - Personal history of transient ischemic attack (TIA), and cerebral infarction without residual deficits SNOMED: 957544022 Assessment/Plan respiratory treatment check sputum Iv abx check cultures swallow study pt/ot dvt prophylaxis Dahlia Lord MD Oct 15, 2017 14:20
[2017-10-15] MEDS: D5 1/2NS 1,000 ML IV SCH (14:55)
--- NOTE | 2017-10-15 15:37 | Consultation ---
History of Present Illness General Date patient seen: Oct 15, 2017 Chief Complaint: Generalized Weakness Present Illness HPI 67 y/o M with hx of HTN, HLD, CVA/TIA, seizures, SNF resident presents to ED on 10/15 from detention; per chart it says for weakness and drowsiness. Per ER HPI it says cough and congestion, however patient has not been coughing per RN today and not expectorating. CXR with no acute disease. Patient deneis cough, SOB, n/v/d, abd pain, dysuria; only refers left side weakness from his prior stroke. No fever, Chest pain Afebrile mild leukocytosis u/a no pyuria CXR no acute diseae Allergies: Coded Allergies: No Known Allergies (Unverified , 08/19/17) Medication History Scheduled Amlodipine Besylate* (Amlodipine Besylate*), 10 MG ORAL DAILY, (Reported) Aspirin (Aspirin Ec), 325 MG ORAL DAILY, (Reported) Aspirin* (Aspirin*), 81 MG ORAL DAILY, (Reported) Atorvastatin Calcium* (Atorvastatin Calcium*), 10 MG ORAL BEDTIME, (Reported) Atorvastatin Calcium* (Lipitor*), 80 MG ORAL BEDTIME, (Reported) Baclofen* (Baclofen*), 5 MG ORAL QID, (Reported) Cranberry Fruit Concentrate (Cranberry), 450 MG PO DAILY, (Reported) Escitalopram Oxalate* (Lexapro*), 20 MG ORAL DAILY, (Reported) Latanoprost* (Xalatan*), 1 DROP BOTH EYES BEDTIME, (Reported) Lisinopril* (Lisinopril*), 20 MG ORAL DAILY, (Reported) Magnesium Hydroxide* (Milk Of Magnesia*), 30 ML ORAL DAILY, (Reported) Metoprolol Succinate* (Metoprolol Succinate*), 50 MG ORAL BID, (Reported) Metoprolol Tartrate* (Metoprolol Tartrate*), 50 MG ORAL EVERY 12 HOURS, ( Reported) Paliperidone Palmitate (Invega Sustenna), 234 MG IM every , (Reported) Risperidone* (Risperdal*), 1 MG PO DAILY, (Reported) Risperidone* (Risperdal*), 1 MG PO BID, (Reported) Valproate Sodium (Valproic Acid), 250 MG PO BID, (Reported) Valproic Acid (Valproic Acid), 250 MG PO BID, (Reported) Patient History Healthcare decision maker Resuscitation status Full Code Advanced Directive on File Patient History Narrative Pmhx: as above Shx: Denies: smoking, alcohol use, drug use Fhx: non contributory Physical Exam Physical Exam Narrative General Appearance: no apparent distress, alert, non-toxic HEET: normocephalic, atraumatic, PERRL, normal pharynx Neck: full range of motion, supple/symm/no masses Respiratory: chest non-tender, lungs clear, normal breath sounds, speaking full sentences Cardiovascular: regular rate, rhythm, no edema Gastrointestinal: normal bowel sounds, non tender, soft, non-distended, no guarding, no rebound Genitourinary: normal inspection, no CVA tenderness Musculoskeletal: back normal, gait/station normal, normal range of motion, non- tender Neurologic: alert, oriented x3, responsive, motor strength/tone normal, sensory intact, speech normal Skin: normal color, no rash, warm/dry, well hydrated Last 24 Hour Vital Signs Date Time Temp Pulse Resp B/P (MAP) Pulse Ox O2 Delivery O2 Flow Rate FiO2 10/15/17 14:13 105 16 98 Room Air 21 10/15/17 14:04 101 18 93 Room Air 21 10/15/17 14:04 101 18 Room Air 21 10/15/17 12:00 97.2 110 18 131/90 96 Room Air 97.2 10/15/17 08:55 108 153/104 10/15/17 08:54 108 153/104 10/15/17 08:54 153/104 10/15/17 08:00 98.0 108 18 153/104 98 Room Air 98.0 10/15/17 06:20 98.2 88 18 141/88 98 Room Air 98.2 10/15/17 05:57 97.2 91 17 129/89 97 Room Air 97.2 10/15/17 05:30 97.2 91 17 129/89 97 Room Air 97.2 10/15/17 03:46 97.0 84 12 145/82 97 Room Air 97.0 10/15/17 02:10 97.0 94 14 137/79 95 Room Air 97.0 10/15/17 00:21 98.4 93 22 126/82 93 Room Air 98.4 Intake and Output 10/14/17 10/15/17 19:00 07:00 Intake Total 0 ml Balance 0 ml Intake Oral 0 ml # Voids 1 Laboratory Tests Test 10/15/17 01:58 10/15/17 02:15 Urine Color Yellow Urine Appearance Clear Urine pH 6 (4.5-8.0) Urine Specific [place] 1.020 (1.005-1.035) Urine Protein 1+ (NEGATIVE) H Urine Glucose (UA) Negative (NEGATIVE) Urine Ketones 1+ (NEGATIVE) H Urine Occult Blood Negative (NEGATIVE) Urine Nitrite Negative (NEGATIVE) Urine Bilirubin Negative (NEGATIVE) Urine Urobilinogen 1 MG/DL (0.0-1.0) H Urine Leukocyte Esterase 1+ (NEGATIVE) H Urine RBC 0-2 /HPF (0 - 0) H Urine WBC 0-2 /HPF (0 - 0) Urine Squamous Epithelial Cells None /LPF (NONE/OCC) Urine Bacteria None /HPF (NONE) White Blood Count 13.5 K/UL (4.8-10.8) H Red Blood Count 4.64 M/UL (4.70-6.10) L Hemoglobin 14.1 G/DL (14.2-18.0) L Hematocrit 38.4 % (42.0-52.0) L Mean Corpuscular Volume 83 FL (80-99) Mean Corpuscular Hemoglobin 30.3 PG (27.0-31.0) Mean Corpuscular Hemoglobin Concent 36.6 G/DL (32.0-36.0) H Red Cell Distribution Width 12.4 % (11.6-14.8) Platelet Count 198 K/UL (150-450) Mean Platelet Volume 7.8 FL (6.5-10.1) Neutrophils (%) (Auto) 53.8 % (45.0-75.0) Lymphocytes (%) (Auto) 35.9 % (20.0-45.0) Monocytes (%) (Auto) 8.1 % (1.0-10.0) Eosinophils (%) (Auto) 1.1 % (0.0-3.0) Basophils (%) (Auto) 1.1 % (0.0-2.0) Sodium Level 142 MMOL/L (136-145) Potassium Level 3.6 MMOL/L (3.5-5.1) Chloride Level 106 MMOL/L (98-107) Carbon Dioxide Level 30 MMOL/L (21-32) Anion Gap 6 mmol/L (5-15) Blood Urea Nitrogen 22 mg/dL (7-18) H Creatinine 1.0 MG/DL (0.55-1.30) Estimat Glomerular Filtration Rate > 60 mL/min (>60) Glucose Level 119 MG/DL (74-106) H Lactic Acid Level 1.00 mmol/L (0.4-2.0) Calcium Level 8.9 MG/DL (8.5-10.1) Total Bilirubin 0.5 MG/DL (0.2-1.0) Aspartate Amino Transf (AST/SGOT) 26 U/L (15-37) Alanine Aminotransferase (ALT/SGPT) 16 U/L (12-78) Alkaline Phosphatase 85 U/L (46-116) Total Protein 7.8 G/DL (6.4-8.2) Albumin 3.1 G/DL (3.4-5.0) L Globulin 4.7 g/dL Albumin/Globulin Ratio 0.7 (1.0-2.7) L Height (Feet): 5 Height (Inches): 10.00 Weight (Pounds): 210 Medications Current Medications Medications (Trade) Dose Ordered Sig/Rustam Route PRN Reason Start Time Stop Time Status Last Admin Dose Admin Albuterol/ Ipratropium (Albuterol/ Ipratropium) 3 ml Q4H PRN HHN dyspnea 10/15/17 07:00 10/20/17 06:59 10/15/17 14:08 Amlodipine Besylate (Norvasc) 10 mg DAILY ORAL 10/15/17 09:00 11/14/17 08:59 10/15/17 08:55 Aspirin (ASA) 81 mg DAILY ORAL 10/15/17 09:00 11/14/17 08:59 10/15/17 08:54 Atorvastatin Calcium (Lipitor) 10 mg BEDTIME ORAL 10/15/17 21:00 11/14/17 20:59 Baclofen (Lioresal) 5 mg QID ORAL 10/15/17 09:00 11/14/17 08:59 10/15/17 14:54 Dextrose (Dextrose 50%) 25 ml STAT PRN IV Hypoglycemia 10/15/17 07:00 11/14/17 06:59 Dextrose (Dextrose 50%) 50 ml STAT PRN IV Hypoglycemia 10/15/17 07:45 11/14/17 07:44 Dextrose/Sodium Chloride 1,000 ml @ 60 mls/hr [id number] IV 10/15/17 14:30 11/14/17 14:29 10/15/17 14:55 Heparin Sodium (Porcine) (Heparin 5000 units/ml) 5,000 units EVERY 12 HOURS SUBQ 10/15/17 09:00 11/14/17 08:59 10/15/17 08:55 Lisinopril (Prinivil) 20 mg DAILY ORAL 10/15/17 09:00 11/14/17 08:59 10/15/17 08:54 Lorazepam (Ativan 2mg/ml 1ml) 0.5 mg Q4H PRN IV For Anxiety 10/15/17 07:00 10/22/17 06:59 Metoprolol Succinate (Toprol XL) 50 mg BID ORAL 10/15/17 09:00 11/14/17 08:59 10/15/17 08:54 Nitroglycerin (Ntg) 0.4 mg Q5M X 3 DOSES PRN SL Prn Chest Pain 10/15/17 07:00 11/14/17 06:59 Ondansetron HCl (Zofran) 4 mg Q6H PRN IVP Nausea & Vomiting 10/15/17 07:00 11/14/17 06:59 Piperacillin Sod/ Tazobactam Sod 3.375 gm/Dextrose 110 ml @ 27.5 mls/hr Q8H IVPB 10/15/17 09:00 10/22/17 08:59 10/15/17 08:54 Promethazine HCl/ Codeine (Phenergan with Codeine) 5 ml Q6H PRN ORAL cough 10/15/17 07:00 11/14/17 06:59 Risperidone (RisperDAL) 1 mg BID ORAL 10/15/17 09:00 11/14/17 08:59 10/15/17 08:54 Temazepam (Restoril) 15 mg HSPRN PRN ORAL Insomnia 10/15/17 07:00 10/22/17 06:59 Valproic Acid (Depakene) 250 mg BID ORAL 10/15/17 09:00 11/14/17 08:59 10/15/17 08:54 Assessment/Plan Assessment/Plan Abx: Zosyn 10/15- LEvaquin x1 10/15 Assessment: Weakness Mild leukocytosis - ? due to hemoconcentration from dehydration- no obvious infectious process at present -CXR: No acute process -Afebrile -u/a no pyuria HTN HLD CVA/TIA seizures SNF resident Plan: -D/c empiric Zosyn #1 and monitor off abx -f/u cx -monitor CBC/BMP, temperatures -aspiration precautions Thank you for this consultation. Will continue to follow along with you. Discussed with IASI. Sandar Arechiga M.D. Oct 15, 2017 15:37
--- NOTE | 2017-10-15 17:30 | History and Physical Report ---
DATE OF ADMISSION: 10/15/2017 CONSULTANTS: 1. Dahlia Lord M.D. 2. Eduardo Kaur M.D. 3. Murray Hamm M.D. 4. Olga Lidia De Jesus M.D. 5. Eliazar Elder M.D. CHIEF COMPLAINT: Weakness, lethargy, UTI, and sepsis. BRIEF HISTORY: This is a 67-year-old male from [facility] presented with the above-mentioned diagnosis, admitted for UTI, sepsis, lethargy, and weakness. Currently calm in bed, weak, slightly confused, not talking much. REVIEW OF SYSTEMS: Unavailable. PAST MEDICAL HISTORY: Hypertension, CVA, COPD, left-sided weakness and seizure. PAST SURGICAL HISTORY: Unknown. MEDICATIONS: Lipitor, Zosyn, Norvasc, aspirin, Aricept, Prinivil, Toprol, Risperdal, and Depakene. ALLERGIES: Denies. SOCIAL HISTORY: No smoking. No alcohol. No intravenous drug abuse. FAMILY HISTORY: Noncontributory. PHYSICAL EXAMINATION: GENERAL: Calm in bed, oriented x1, in no acute distress. VITAL SIGNS: Temperature 97 degrees, pulse 105, respirations 16, and blood pressure 130/90. CARDIOVASCULAR: No murmur. LUNGS: Poor air exchange. ABDOMEN: Bowel sounds positive. Nontender. Nondistended. EXTREMITIES: No cyanosis, clubbing, or edema. NEUROLOGIC: The patient moves all extremities, slightly weak. LABORATORY AND DIAGNOSTIC DATA: White count 15, hemoglobin and hematocrit 14/38, otherwise, CBC is normal. BUN is 22 and glucose 119, otherwise, BMP is normal. Albumin is 3.1. Urinalysis shows 1+ ketone, 1+ leukocyte esterase, 1+ protein. ASSESSMENT: 1. Weakness. 2. Hypertension. 3. Seizure. 4. Urinary tract infection. 5. Sepsis. 6. Congestion. 7. Chronic obstructive pulmonary disease. 8. Hypoalbumin. 9. Cerebrovascular accident with left-sided weakness. PLAN: 1. O2 and pulmonary treatment. 2. Antibiotics per Infectious Disease. 3. Blood pressure control. 4. Dietary followup. 5. CBC and BMP in the morning. Biju Santos D.O. DR: STEWART JOB#: [id number] CC:
[2017-10-16 00:02] VITALS: BP 118/76
[2017-10-16 04:17] VITALS: BP 109/67
[2017-10-16 07:25] LABS: ALANINE AMINOTRANSFERASE 15 U/L (12-78); ALBUMIN 2.9 G/DL (3.4-5.0); ALBUMIN/GLOBULIN RATIO 0.8 (1.0-2.7); ALKALINE PHOSPHATASE 72 U/L (46-116); ANION GAP 6 mmol/L (5-15); ASPARTATE AMINO TRANSFERASE 19 U/L (15-37); BILIRUBIN,TOTAL 0.4 MG/DL (0.2-1.0); BLOOD UREA NITROGEN 15 mg/dL (7-18); CALCIUM 8.9 MG/DL (8.5-10.1); CARBON DIOXIDE 30 MMOL/L (21-32); CHLORIDE 109 MMOL/L (98-107); CREATININE 1.1 MG/DL (0.55-1.30); PHOSPHORUS 4.6 MG/DL (2.5-4.9); POTASSIUM 4.1 MMOL/L (3.5-5.1); SODIUM 145 MMOL/L (136-145)
[2017-10-16 07:32] LABS: BASOPHILS % (AUTO) 0.6 % (0.0-2.0); EOSINOPHILS % (AUTO) 1.7 % (0.0-3.0); HEMATOCRIT 37.2 % (42.0-52.0); HEMOGLOBIN 12.7 G/DL (14.2-18.0); LYMPHOCYTES % (AUTO) 38.1 % (20.0-45.0); MEAN CORPUSCULAR VOLUME 82 FL (80-99); MONOCYTES % (AUTO) 7.3 % (1.0-10.0); NEUTROPHILS % (AUTO) 52.3 % (45.0-75.0); PLATELET COUNT 221 K/UL (150-450); RED BLOOD COUNT 4.51 M/UL (4.70-6.10); RED CELL DISTRIBUTION WIDTH 12.1 % (11.6-14.8); WHITE BLOOD COUNT 11.6 K/UL (4.8-10.8)
[2017-10-16] MEDS: D5 1/2NS 1,000 ML IV SCH ×2 (07:45→23:31)
[2017-10-16 08:00] VITALS: BP 103/61
--- NOTE | 2017-10-16 08:05 | Cardiology Progress Note ---
Assessment/Plan Assessment/Plan The patient is seen and examined, full consult note will be provided. Objective Last 24 Hour Vital Signs Date Time Temp Pulse Resp B/P (MAP) Pulse Ox O2 Delivery O2 Flow Rate FiO2 10/16/17 04:17 98.7 85 20 109/67 95 98.7 10/16/17 00:02 98.7 92 17 118/76 95 98.7 10/15/17 21:00 99 18 Room Air 21 10/15/17 20:06 98.5 97 16 114/73 95 98.5 10/15/17 18:43 111/70 10/15/17 18:00 98 111/70 10/15/17 16:00 97.6 98 18 130/88 97 Room Air 97.6 10/15/17 14:13 105 16 98 Room Air 21 10/15/17 14:04 101 18 93 Room Air 21 10/15/17 14:04 101 18 Room Air 21 10/15/17 12:00 97.2 110 18 131/90 96 Room Air 97.2 10/15/17 08:55 108 153/104 10/15/17 08:54 108 153/104 10/15/17 08:54 153/104 Intake and Output 10/15/17 10/16/17 19:00 07:00 Intake Total 930.0 ml 1660 ml Output Total 400 ml Balance 930.0 ml 1260 ml Intake Oral 700 ml 940 ml IV Total 230.0 ml 720 ml Output Urine Total 400 ml # Voids 6 4 Laboratory Tests Test 10/16/17 06:10 White Blood Count 11.6 K/UL (4.8-10.8) H Red Blood Count 4.51 M/UL (4.70-6.10) L Hemoglobin 12.7 G/DL (14.2-18.0) L Hematocrit 37.2 % (42.0-52.0) L Mean Corpuscular Volume 82 FL (80-99) Mean Corpuscular Hemoglobin 28.3 PG (27.0-31.0) Mean Corpuscular Hemoglobin Concent 34.3 G/DL (32.0-36.0) Red Cell Distribution Width 12.1 % (11.6-14.8) Platelet Count 221 K/UL (150-450) Mean Platelet Volume 7.8 FL (6.5-10.1) Neutrophils (%) (Auto) 52.3 % (45.0-75.0) Lymphocytes (%) (Auto) 38.1 % (20.0-45.0) Monocytes (%) (Auto) 7.3 % (1.0-10.0) Eosinophils (%) (Auto) 1.7 % (0.0-3.0) Basophils (%) (Auto) 0.6 % (0.0-2.0) Sodium Level 145 MMOL/L (136-145) Potassium Level 4.1 MMOL/L (3.5-5.1) Chloride Level 109 MMOL/L (98-107) H Carbon Dioxide Level 30 MMOL/L (21-32) Anion Gap 6 mmol/L (5-15) Blood Urea Nitrogen 15 mg/dL (7-18) Creatinine 1.1 MG/DL (0.55-1.30) Estimat Glomerular Filtration Rate > 60 mL/min (>60) Glucose Level 116 MG/DL (74-106) H Calcium Level 8.9 MG/DL (8.5-10.1) Phosphorus Level 4.6 MG/DL (2.5-4.9) Magnesium Level 2.0 MG/DL (1.8-2.4) Total Bilirubin 0.4 MG/DL (0.2-1.0) Aspartate Amino Transf (AST/SGOT) 19 U/L (15-37) Alanine Aminotransferase (ALT/SGPT) 15 U/L (12-78) Alkaline Phosphatase 72 U/L (46-116) Total Protein 6.6 G/DL (6.4-8.2) Albumin 2.9 G/DL (3.4-5.0) L Globulin 3.7 g/dL Albumin/Globulin Ratio 0.8 (1.0-2.7) L Microbiology Date/Time Source Procedure Growth Status 10/15/17 02:25 Blood Blood Culture - Preliminary NO GROWTH AFTER 24 HOURS Resulted 10/15/17 02:15 Blood Blood Culture - Preliminary NO GROWTH AFTER 24 HOURS Resulted Murray Hamm MD Oct 16, 2017 08:05
[2017-10-16] MEDS: Aspirin Baby 81mg ORAL SCH (09:00)
[2017-10-16] MEDS: Metoprolol Succinate XL 50mg tab ORAL SCH ×2 (09:00→18:27)
[2017-10-16] MEDS: Lisinopril 20mg tab ORAL SCH (09:00)
[2017-10-16] MEDS: Heparin 5000 units/ml inj SUBQ SCH ×2 (09:05→20:37)
--- NOTE | 2017-10-16 11:30 | Consultation ---
DATE OF CONSULTATION: 10/16/2017 CARDIOLOGY CONSULTATION REFERRING PHYSICIAN: Biju Santos D.O. REASON FOR CONSULTATION: Management of presyncope. HISTORY OF PRESENT ILLNESS: The patient is a very unfortunate 67-year-old gentleman who presents to the emergency department from a snf facility for cough and congestion and shortness of breath. Apparently, the patient has been feeling weaker than his baseline. He was afebrile at the time of arrival to the hospital, and did not have any chest pain. He is a very poor historian due to his underlying history of stroke. This report is prepared by using the old records. His cardiac history is significant for history of atherosclerotic heart disease. He also has history of hypertension and history of cerebrovascular accident with left hemiparalysis. At the time of my evaluation, there was no electrocardiogram in the chart. Of note, the patient had been in the hospital back in August 2017. PAST MEDICAL HISTORY: Hypertension, cerebrovascular accident with left hemiparesis, history of seizures, history of atherosclerotic heart disease, history of hyperlipidemia. PAST SURGICAL HISTORY: None. ALLERGIES: No known drug allergies. SOCIAL HISTORY: No history of tobacco, alcohol, or illicit drug use. FAMILY HISTORY: No premature coronary artery disease in first-degree relatives. REVIEW OF SYSTEMS: HEENT: Denies any headache, diplopia, or blurred vision. CONSTITUTIONAL: Complains of generalized weakness, dizziness, lightheadedness. No fever or chills. PULMONARY: Denies any cough, hemoptysis, or wheezing. CARDIOVASCULAR: Denies any chest pain, shortness of breath, PND, orthopnea, or leg swelling. GASTROINTESTINAL: Denies any nausea, vomiting, diarrhea, constipation, abdominal pain, or GI bleed. GENITOURINARY: Denies any hematuria, dysuria, or incontinence. NEUROLOGIC: History of stroke with left hemiparalysis. MEDICATIONS: List of medication includes valproic acid 250 mg twice a day, Risperdal 1 mg twice a day, atorvastatin 80 mg p.o. at bedtime, metoprolol 50 mg twice daily, aspirin 81 mg p.o. daily, baclofen 5 mg four times a day, latanoprost eye drops, Invega Sustenna 234 mg intramuscular every day, , Lexapro 20 mg p.o. daily, magnesium hydroxide 30 mL p.o. p.o. daily, cranberry 450 mg daily, lisinopril 20 mg p.o. daily, amlodipine 10 mg p.o. daily. PHYSICAL EXAMINATION: VITAL SIGNS: At the time of arrival to the hospital, blood pressure was 126/82, respirations 22, pulse of 93, temperature 98.4 degrees Fahrenheit, and O2 saturation 93% on room air. GENERAL: The patient is a very unfortunate 67-year-old male, in no apparent respiratory distress. Facial droop. HEENT: Atraumatic and normocephalic. Anicteric. Pupils are equal, round, and reactive to light and accommodation. Extraocular muscles intact. NECK: JVP is less than 5 cm. No carotid bruit. Carotid upstroke is 2+ bilaterally. CARDIOVASCULAR: Normal S1, S2. Regular rate and rhythm. No murmurs, gallops, or rubs. PMI is at fourth intercostal space in midclavicular line. LUNGS: Clear to auscultation bilaterally. ABDOMEN: Soft, nontender, and nondistended. No hepatosplenomegaly. Positive bowel sounds. EXTREMITIES: No evidence of edema, clubbing, or cyanosis. There is a flexion contraction of the right upper extremity. LABORATORY FINDINGS: WBC 13.5, hemoglobin of 14.1, hematocrit 38.4, and platelet count is 198. Sodium 142, potassium 3.6, chloride 106, bicarbonate 30, BUN of 22, creatinine 1.0, glucose 119 and calcium is 8.9. Chest x-ray showed no acute cardiopulmonary disease. A 12-lead electrocardiogram not available. ASSESSMENT AND PLAN: The patient is a very unfortunate 67-year-old gentleman, seen in Cardiology consultation at request of Dr. Santos. 1. Presyncope with dizziness and lightheadedness, generalized weakness. This could be secondary to hypovolemia or could be the effect of lowering blood pressure by blood pressure medication. We will continue to manage the patient's blood pressure regimen in the hospital. At the time of arrival to the hospital, blood pressure was within normal limits. 2. History of atherosclerotic heart disease. I will obtain 12-lead electrocardiogram, to assess ST and T-wave abnormalities. A 2D echocardiography from August this year in this facility showed normal LV systolic function with LVEF approximately 55% to 60%. No wall motion abnormalities. 3. History of cerebrovascular accident. I would concur with atorvastatin 80 and aspirin for secondary preventive measures. 4. History of hypertension. We will continue to manage with amlodipine and metoprolol. I would like to thank, Dr. Santos, for the courtesy of this consultation. Murray Hamm M.D. DR: GIBSON JOB#: [id number] CC:
[2017-10-16 11:32] VITALS: BP 136/74
--- NOTE | 2017-10-16 13:00 | General Progress Note ---
Assessment/Plan Problem List: (1) UTI (urinary tract infection) ICD Codes: N39.0 - Urinary tract infection, site not specified SNOMED: 04966270 (2) Sepsis ICD Codes: A41.9 - Sepsis, unspecified organism SNOMED: 45343647 (3) History of CVA (cerebrovascular accident) ICD Codes: Z86.73 - Personal history of transient ischemic attack (TIA), and cerebral infarction without residual deficits SNOMED: 522803137 (4) Left-sided weakness ICD Codes: R53.1 - Weakness SNOMED: 191802690 (5) Episode of generalized weakness ICD Codes: R53.1 - Weakness SNOMED: 39663626 Status: unchanged Assessment/Plan ot pt diet abx cbc bmp am Subjective Constitutional: Reports: weakness Allergies: Coded Allergies: No Known Allergies (Unverified , 08/19/17) All Systems: reviewed and negative except above Subjective calm in bed Objective Last 24 Hour Vital Signs Date Time Temp Pulse Resp B/P (MAP) Pulse Ox O2 Delivery O2 Flow Rate FiO2 10/16/17 11:32 97.7 82 20 136/74 97 97.7 10/16/17 09:01 81 103/61 10/16/17 09:00 81 103/61 10/16/17 09:00 103/61 10/16/17 08:00 97.7 81 20 103/61 95 97.7 10/16/17 07:58 81 18 Room Air 21 10/16/17 04:17 98.7 85 20 109/67 95 98.7 10/16/17 00:02 98.7 92 17 118/76 95 98.7 10/15/17 21:00 99 18 Room Air 21 10/15/17 20:06 98.5 97 16 114/73 95 98.5 10/15/17 18:43 111/70 10/15/17 18:00 98 111/70 10/15/17 16:00 97.6 98 18 130/88 97 Room Air 97.6 10/15/17 14:13 105 16 98 Room Air 21 10/15/17 14:04 101 18 93 Room Air 21 10/15/17 14:04 101 18 Room Air 21 Intake and Output 10/15/17 10/16/17 19:00 07:00 Intake Total 930.0 ml 1660 ml Output Total 400 ml Balance 930.0 ml 1260 ml Intake Oral 700 ml 940 ml IV Total 230.0 ml 720 ml Output Urine Total 400 ml # Voids 6 4 Laboratory Tests 10/16/17 06:10: White Blood Count 11.6H, Red Blood Count 4.51L, Hemoglobin 12.7L, Hematocrit 37.2L, Mean Corpuscular Volume 82, Mean Corpuscular Hemoglobin 28.3, Mean Corpuscular Hemoglobin Concent 34.3, Red Cell Distribution Width 12.1, Platelet Count 221, Mean Platelet Volume 7.8, Neutrophils (%) (Auto) 52.3, Lymphocytes (% ) (Auto) 38.1, Monocytes (%) (Auto) 7.3, Eosinophils (%) (Auto) 1.7, Basophils ( %) (Auto) 0.6, Sodium Level 145, Potassium Level 4.1, Chloride Level 109H, Carbon Dioxide Level 30, Anion Gap 6, Blood Urea Nitrogen 15, Creatinine 1.1, Estimat Glomerular Filtration Rate > 60, Glucose Level 116H, Calcium Level 8.9, Phosphorus Level 4.6, Magnesium Level 2.0, Total Bilirubin 0.4, Aspartate Amino Transf (AST/SGOT) 19, Alanine Aminotransferase (ALT/SGPT) 15, Alkaline Phosphatase 72, Total Protein 6.6, Albumin 2.9L, Globulin 3.7, Albumin/Globulin Ratio 0.8L Height (Feet): 5 Height (Inches): 10.00 Weight (Pounds): 208 General Appearance: lethargic EENT: normal ENT inspection Neck: normal alignment Cardiovascular: normal peripheral pulses, normal rate, regular rhythm Respiratory/Chest: chest wall non-tender, lungs clear, normal breath sounds Abdomen: normal bowel sounds, non tender, soft Extremities: normal inspection Edema: no edema noted Arm (L), no edema noted Arm (R), no edema noted Leg (L), no edema noted Leg (R), no edema noted Pedal (L), no edema noted Pedal (R), no edema noted Generalized Neurologic: motor weakness Skin: normal pigmentation, warm/dry Biju Santos DO Oct 16, 2017 12:59
[2017-10-16 16:00] VITALS: BP 114/73
--- NOTE | 2017-10-16 16:00 | Pulmonology Progress Note ---
Assessment/Plan Problems: (1) Acute bronchitis (2) At high risk for aspiration (3) COPD (chronic obstructive pulmonary disease) (4) UTI (urinary tract infection) (5) Sepsis (6) Hypertension (7) Left-sided weakness (8) History of CVA (cerebrovascular accident) Assessment/Plan respiratory treatment iv abx check cultures doing better f/u nutrition recommendations check electroltyes pt/ot dvt prophylaxis. Subjective ROS Limited/Unobtainable: No Constitutional: Reports: no symptoms HEENT: Repors: no symptoms Respiratory: Reports: no symptoms Allergies: Coded Allergies: No Known Allergies (Unverified , 08/19/17) Objective Last 24 Hour Vital Signs Date Time Temp Pulse Resp B/P (MAP) Pulse Ox O2 Delivery O2 Flow Rate FiO2 10/16/17 11:32 97.7 82 20 136/74 97 97.7 10/16/17 09:01 81 103/61 10/16/17 09:00 81 103/61 10/16/17 09:00 103/61 10/16/17 08:00 97.7 81 20 103/61 95 97.7 10/16/17 07:58 81 18 Room Air 21 10/16/17 04:17 98.7 85 20 109/67 95 98.7 10/16/17 00:02 98.7 92 17 118/76 95 98.7 10/15/17 21:00 99 18 Room Air 21 10/15/17 20:06 98.5 97 16 114/73 95 98.5 10/15/17 18:43 111/70 10/15/17 18:00 98 111/70 10/15/17 16:00 97.6 98 18 130/88 97 Room Air 97.6 Intake and Output 10/15/17 10/16/17 19:00 07:00 Intake Total 930.0 ml 1660 ml Output Total 400 ml Balance 930.0 ml 1260 ml Intake Oral 700 ml 940 ml IV Total 230.0 ml 720 ml Output Urine Total 400 ml # Voids 6 4 General Appearance: WD/WN HEENT: normocephalic, anicteric Respiratory/Chest: crackles/rales Cardiovascular: normal peripheral pulses, regular rhythm Abdomen: normal bowel sounds, soft, non tender Genitourinary: normal external genitalia Skin: no ulcers 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 Microbiology Date/Time Source Procedure Growth Status 10/15/17 02:25 Blood Blood Culture - Preliminary NO GROWTH AFTER 24 HOURS Resulted 10/15/17 02:15 Blood Blood Culture - Preliminary NO GROWTH AFTER 24 HOURS Resulted Laboratory Tests 10/16/17 06:10: White Blood Count 11.6H, Red Blood Count 4.51L, Hemoglobin 12.7L, Hematocrit 37.2L, Mean Corpuscular Volume 82, Mean Corpuscular Hemoglobin 28.3, Mean Corpuscular Hemoglobin Concent 34.3, Red Cell Distribution Width 12.1, Platelet Count 221, Mean Platelet Volume 7.8, Neutrophils (%) (Auto) 52.3, Lymphocytes (% ) (Auto) 38.1, Monocytes (%) (Auto) 7.3, Eosinophils (%) (Auto) 1.7, Basophils ( %) (Auto) 0.6, Sodium Level 145, Potassium Level 4.1, Chloride Level 109H, Carbon Dioxide Level 30, Anion Gap 6, Blood Urea Nitrogen 15, Creatinine 1.1, Estimat Glomerular Filtration Rate > 60, Glucose Level 116H, Calcium Level 8.9, Phosphorus Level 4.6, Magnesium Level 2.0, Total Bilirubin 0.4, Aspartate Amino Transf (AST/SGOT) 19, Alanine Aminotransferase (ALT/SGPT) 15, Alkaline Phosphatase 72, Total Protein 6.6, Albumin 2.9L, Globulin 3.7, Albumin/Globulin Ratio 0.8L Current Medications Medications (Trade) Dose Ordered Sig/Rustam Route PRN Reason Start Time Stop Time Status Last Admin Dose Admin Albuterol/ Ipratropium (Albuterol/ Ipratropium) 3 ml Q4H PRN HHN dyspnea 10/15/17 07:00 10/20/17 06:59 10/15/17 14:08 Amlodipine Besylate (Norvasc) 10 mg DAILY ORAL 10/15/17 09:00 11/14/17 08:59 10/16/17 09:01 Aspirin (ASA) 81 mg DAILY ORAL 10/15/17 09:00 11/14/17 08:59 10/16/17 09:00 Atorvastatin Calcium (Lipitor) 10 mg BEDTIME ORAL 10/15/17 21:00 11/14/17 20:59 10/15/17 20:48 Baclofen (Lioresal) 5 mg QID ORAL 10/15/17 09:00 11/14/17 08:59 10/16/17 12:42 Dextrose (Dextrose 50%) 25 ml STAT PRN IV Hypoglycemia 10/15/17 07:00 11/14/17 06:59 Dextrose (Dextrose 50%) 50 ml STAT PRN IV Hypoglycemia 10/15/17 07:45 11/14/17 07:44 Dextrose/Sodium Chloride 1,000 ml @ 60 mls/hr [id number] IV 10/15/17 14:30 11/14/17 14:29 10/16/17 07:45 Heparin Sodium (Porcine) (Heparin 5000 units/ml) 5,000 units EVERY 12 HOURS SUBQ 10/15/17 09:00 11/14/17 08:59 10/16/17 09:05 Lisinopril (Prinivil) 20 mg DAILY ORAL 10/15/17 09:00 11/14/17 08:59 10/16/17 09:00 Lorazepam (Ativan 2mg/ml 1ml) 0.5 mg Q4H PRN IV For Anxiety 10/15/17 07:00 10/22/17 06:59 Metoprolol Succinate (Toprol XL) 50 mg BID ORAL 10/15/17 09:00 11/14/17 08:59 10/16/17 09:00 Nitroglycerin (Ntg) 0.4 mg Q5M X 3 DOSES PRN SL Prn Chest Pain 10/15/17 07:00 11/14/17 06:59 Ondansetron HCl (Zofran) 4 mg Q6H PRN IVP Nausea & Vomiting 10/15/17 07:00 11/14/17 06:59 Promethazine HCl/ Codeine (Phenergan with Codeine) 5 ml Q6H PRN ORAL cough 10/15/17 07:00 11/14/17 06:59 Risperidone (RisperDAL) 1 mg BID ORAL 10/15/17 09:00 11/14/17 08:59 10/16/17 09:00 Temazepam (Restoril) 15 mg HSPRN PRN ORAL Insomnia 10/15/17 07:00 10/22/17 06:59 Valproic Acid (Depakene) 250 mg BID ORAL 10/15/17 09:00 11/14/17 08:59 10/16/17 09:00 Dahlia Lord MD Oct 16, 2017 16:00
--- NOTE | 2017-10-16 18:07 | Infectious Diseases Prog Note ---
Assessment/Plan Assessment/Plan Abx: Zosyn 10/15 LEvaquin x1 10/15 Assessment: Weakness Mild leukocytosis - ? due to hemoconcentration from dehydration- no obvious infectious process at present; improving off abx -CXR: No acute process -Afebrile -u/a no pyuria -Bcx NTD HTN HLD CVA/TIA seizures SNF resident Plan: -Continue monitor off abx -10/15 SP Zosyn #1, Levaquin x1 -f/u cx -monitor CBC/BMP, temperatures -aspiration precautions Thank you for this consultation. Will continue to follow along with you. Discussed with RN. Subjective Allergies: Coded Allergies: No Known Allergies (Unverified , 08/19/17) Subjective afebrile leukocytosis improving off abx Bcx NTD Objective Vital Signs Last 24 Hour Vital Signs Date Time Temp Pulse Resp B/P (MAP) Pulse Ox O2 Delivery O2 Flow Rate FiO2 10/16/17 16:00 97.9 89 20 114/73 100 97.9 10/16/17 11:32 97.7 82 20 136/74 97 97.7 10/16/17 09:01 81 103/61 10/16/17 09:00 81 103/61 10/16/17 09:00 103/61 10/16/17 08:00 97.7 81 20 103/61 95 97.7 10/16/17 07:58 81 18 Room Air 21 10/16/17 04:17 98.7 85 20 109/67 95 98.7 10/16/17 00:02 98.7 92 17 118/76 95 98.7 10/15/17 21:00 99 18 Room Air 21 10/15/17 20:06 98.5 97 16 114/73 95 98.5 10/15/17 18:43 111/70 Height (Feet): 5 Height (Inches): 10.00 Weight (Pounds): 208 Objective General Appearance: no apparent distress, alert, non-toxic HEET: normocephalic, atraumatic, PERRL, normal pharynx Neck: full range of motion, supple/symm/no masses Respiratory: chest non-tender, lungs clear, normal breath sounds, speaking full sentences Cardiovascular: regular rate, rhythm, no edema Gastrointestinal: normal bowel sounds, non tender, soft, non-distended, no guarding, no rebound Genitourinary: normal inspection, no CVA tenderness Musculoskeletal: back normal, gait/station normal, normal range of motion, non- tender Neurologic: alert, oriented x3, responsive, motor strength/tone normal, sensory intact, speech normal Skin: normal color, no rash, warm/dry, well hydrated Microbiology Date/Time Source Procedure Growth Status 10/15/17 02:25 Blood Blood Culture - Preliminary NO GROWTH AFTER 24 HOURS Resulted 10/15/17 02:15 Blood Blood Culture - Preliminary NO GROWTH AFTER 24 HOURS Resulted Laboratory Tests Test 10/16/17 06:10 White Blood Count 11.6 K/UL (4.8-10.8) H Red Blood Count 4.51 M/UL (4.70-6.10) L Hemoglobin 12.7 G/DL (14.2-18.0) L Hematocrit 37.2 % (42.0-52.0) L Mean Corpuscular Volume 82 FL (80-99) Mean Corpuscular Hemoglobin 28.3 PG (27.0-31.0) Mean Corpuscular Hemoglobin Concent 34.3 G/DL (32.0-36.0) Red Cell Distribution Width 12.1 % (11.6-14.8) Platelet Count 221 K/UL (150-450) Mean Platelet Volume 7.8 FL (6.5-10.1) Neutrophils (%) (Auto) 52.3 % (45.0-75.0) Lymphocytes (%) (Auto) 38.1 % (20.0-45.0) Monocytes (%) (Auto) 7.3 % (1.0-10.0) Eosinophils (%) (Auto) 1.7 % (0.0-3.0) Basophils (%) (Auto) 0.6 % (0.0-2.0) Sodium Level 145 MMOL/L (136-145) Potassium Level 4.1 MMOL/L (3.5-5.1) Chloride Level 109 MMOL/L (98-107) H Carbon Dioxide Level 30 MMOL/L (21-32) Anion Gap 6 mmol/L (5-15) Blood Urea Nitrogen 15 mg/dL (7-18) Creatinine 1.1 MG/DL (0.55-1.30) Estimat Glomerular Filtration Rate > 60 mL/min (>60) Glucose Level 116 MG/DL (74-106) H Calcium Level 8.9 MG/DL (8.5-10.1) Phosphorus Level 4.6 MG/DL (2.5-4.9) Magnesium Level 2.0 MG/DL (1.8-2.4) Total Bilirubin 0.4 MG/DL (0.2-1.0) Aspartate Amino Transf (AST/SGOT) 19 U/L (15-37) Alanine Aminotransferase (ALT/SGPT) 15 U/L (12-78) Alkaline Phosphatase 72 U/L (46-116) Total Protein 6.6 G/DL (6.4-8.2) Albumin 2.9 G/DL (3.4-5.0) L Globulin 3.7 g/dL Albumin/Globulin Ratio 0.8 (1.0-2.7) L Current Medications Medications (Trade) Dose Ordered Sig/Rustam Route PRN Reason Start Time Stop Time Status Last Admin Dose Admin Albuterol/ Ipratropium (Albuterol/ Ipratropium) 3 ml Q4H PRN HHN dyspnea 10/15/17 07:00 10/20/17 06:59 10/15/17 14:08 Amlodipine Besylate (Norvasc) 10 mg DAILY ORAL 10/15/17 09:00 11/14/17 08:59 10/16/17 09:01 Aspirin (ASA) 81 mg DAILY ORAL 10/15/17 09:00 11/14/17 08:59 10/16/17 09:00 Atorvastatin Calcium (Lipitor) 10 mg BEDTIME ORAL 10/15/17 21:00 11/14/17 20:59 10/15/17 20:48 Baclofen (Lioresal) 5 mg QID ORAL 10/15/17 09:00 11/14/17 08:59 10/16/17 12:42 Dextrose (Dextrose 50%) 25 ml STAT PRN IV Hypoglycemia 10/15/17 07:00 11/14/17 06:59 Dextrose (Dextrose 50%) 50 ml STAT PRN IV Hypoglycemia 10/15/17 07:45 11/14/17 07:44 Dextrose/Sodium Chloride 1,000 ml @ 60 mls/hr [id number] IV 10/15/17 14:30 11/14/17 14:29 10/16/17 07:45 Heparin Sodium (Porcine) (Heparin 5000 units/ml) 5,000 units EVERY 12 HOURS SUBQ 10/15/17 09:00 11/14/17 08:59 10/16/17 09:05 Lisinopril (Prinivil) 20 mg DAILY ORAL 10/15/17 09:00 11/14/17 08:59 10/16/17 09:00 Lorazepam (Ativan 2mg/ml 1ml) 0.5 mg Q4H PRN IV For Anxiety 10/15/17 07:00 10/22/17 06:59 Metoprolol Succinate (Toprol XL) 50 mg BID ORAL 10/15/17 09:00 11/14/17 08:59 10/16/17 09:00 Nitroglycerin (Ntg) 0.4 mg Q5M X 3 DOSES PRN SL Prn Chest Pain 10/15/17 07:00 11/14/17 06:59 Ondansetron HCl (Zofran) 4 mg Q6H PRN IVP Nausea & Vomiting 10/15/17 07:00 11/14/17 06:59 Promethazine HCl/ Codeine (Phenergan with Codeine) 5 ml Q6H PRN ORAL cough 10/15/17 07:00 11/14/17 06:59 Risperidone (RisperDAL) 1 mg BID ORAL 10/15/17 09:00 11/14/17 08:59 10/16/17 09:00 Temazepam (Restoril) 15 mg HSPRN PRN ORAL Insomnia 10/15/17 07:00 10/22/17 06:59 Valproic Acid (Depakene) 250 mg BID ORAL 10/15/17 09:00 11/14/17 08:59 10/16/17 09:00 Sandra Arechiga M.D. Oct 16, 2017 18:07
[2017-10-16 20:00] VITALS: BP 109/65
[2017-10-17] VITALS: BP 133/79
[2017-10-17 04:16] VITALS: BP 114/74
[2017-10-17 06:50] LABS: BASOPHILS % (AUTO) 0.9 % (0.0-2.0); EOSINOPHILS % (AUTO) 3.1 % (0.0-3.0); HEMATOCRIT 37.7 % (42.0-52.0); HEMOGLOBIN 12.7 G/DL (14.2-18.0); LYMPHOCYTES % (AUTO) 41.8 % (20.0-45.0); MEAN CORPUSCULAR VOLUME 83 FL (80-99); MONOCYTES % (AUTO) 6.9 % (1.0-10.0); NEUTROPHILS % (AUTO) 47.4 % (45.0-75.0); PLATELET COUNT 215 K/UL (150-450); RED BLOOD COUNT 4.53 M/UL (4.70-6.10); RED CELL DISTRIBUTION WIDTH 12.8 % (11.6-14.8); WHITE BLOOD COUNT 9.8 K/UL (4.8-10.8)
[2017-10-17 07:08] LABS: ANION GAP 6 mmol/L (5-15); BLOOD UREA NITROGEN 15 mg/dL (7-18); CALCIUM 8.6 MG/DL (8.5-10.1); CARBON DIOXIDE 28 MMOL/L (21-32); CHLORIDE 110 MMOL/L (98-107); POTASSIUM 3.9 MMOL/L (3.5-5.1); SODIUM 144 MMOL/L (136-145)
[2017-10-17 08:00] VITALS: BP 133/82
[2017-10-17] MEDS: Lisinopril 20mg tab ORAL SCH (09:10)
[2017-10-17] MEDS: Metoprolol Succinate XL 50mg tab ORAL SCH (09:10)
[2017-10-17] MEDS: Heparin 5000 units/ml inj SUBQ SCH (09:11)
[2017-10-17] MEDS: Aspirin Baby 81mg ORAL SCH (09:18)
--- NOTE | 2017-10-17 10:59 | Infectious Diseases Prog Note ---
Assessment/Plan Assessment/Plan Abx: Zosyn 10/15 LEvaquin x1 10/15 Assessment: Weakness Mild leukocytosis - ? due to hemoconcentration from dehydration- no obvious infectious process at present;resolved off abx -CXR: No acute process -Afebrile -u/a no pyuria -Bcx NTD HTN HLD CVA/TIA seizures SNF resident Plan: -Continue monitor off abx -10/15 SP Zosyn #1, Levaquin x1 -f/u cx -monitor CBC/BMP, temperatures -aspiration precautions Thank you for this consultation. Will continue to follow along with you. Discussed with RN. Subjective Allergies: Coded Allergies: No Known Allergies (Unverified , 08/19/17) Subjective afebrile leukocytosis resolved off abx Bcx NTD Objective Vital Signs Last 24 Hour Vital Signs Date Time Temp Pulse Resp B/P (MAP) Pulse Ox O2 Delivery O2 Flow Rate FiO2 10/17/17 09:10 72 133/82 10/17/17 09:10 133/82 10/17/17 09:10 72 133/82 10/17/17 08:40 86 16 Room Air 21 10/17/17 08:00 98.4 72 18 133/82 98 Room Air 98.4 10/17/17 04:16 97.2 77 16 114/74 96 Room Air 97.2 10/17/17 00:00 97.9 75 20 133/79 95 Room Air 97.9 10/16/17 20:38 85 16 Room Air 21 10/16/17 20:00 98.1 92 20 109/65 95 Room Air 98.1 10/16/17 18:27 89 114/73 10/16/17 16:00 97.9 89 20 114/73 100 97.9 10/16/17 11:32 97.7 82 20 136/74 97 97.7 Height (Feet): 5 Height (Inches): 10.00 Weight (Pounds): 208 Objective General Appearance: no apparent distress, alert, non-toxic HEET: normocephalic, atraumatic, PERRL, normal pharynx Neck: full range of motion, supple/symm/no masses Respiratory: chest non-tender, lungs clear, normal breath sounds, speaking full sentences Cardiovascular: regular rate, rhythm, no edema Gastrointestinal: normal bowel sounds, non tender, soft, non-distended, no guarding, no rebound Genitourinary: normal inspection, no CVA tenderness Musculoskeletal: back normal, gait/station normal, normal range of motion, non- tender Neurologic: alert, oriented x3, responsive, motor strength/tone normal, sensory intact, speech normal Skin: normal color, no rash, warm/dry, well hydrated Microbiology Date/Time Source Procedure Growth Status 10/15/17 02:25 Blood Blood Culture - Preliminary NO GROWTH AFTER 48 HOURS Resulted 10/15/17 02:15 Blood Blood Culture - Preliminary NO GROWTH AFTER 48 HOURS Resulted 10/15/17 02:18 Rectum VRE Culture - Final NO VANCOMYCIN RESISTANT ENTEROCOCCUS ... Complete Laboratory Tests Test 10/17/17 04:55 White Blood Count 9.8 K/UL (4.8-10.8) Red Blood Count 4.53 M/UL (4.70-6.10) L Hemoglobin 12.7 G/DL (14.2-18.0) L Hematocrit 37.7 % (42.0-52.0) L Mean Corpuscular Volume 83 FL (80-99) Mean Corpuscular Hemoglobin 28.0 PG (27.0-31.0) Mean Corpuscular Hemoglobin Concent 33.7 G/DL (32.0-36.0) Red Cell Distribution Width 12.8 % (11.6-14.8) Platelet Count 215 K/UL (150-450) Mean Platelet Volume 7.9 FL (6.5-10.1) Neutrophils (%) (Auto) 47.4 % (45.0-75.0) Lymphocytes (%) (Auto) 41.8 % (20.0-45.0) Monocytes (%) (Auto) 6.9 % (1.0-10.0) Eosinophils (%) (Auto) 3.1 % (0.0-3.0) H Basophils (%) (Auto) 0.9 % (0.0-2.0) Sodium Level 144 MMOL/L (136-145) Potassium Level 3.9 MMOL/L (3.5-5.1) Chloride Level 110 MMOL/L (98-107) H Carbon Dioxide Level 28 MMOL/L (21-32) Anion Gap 6 mmol/L (5-15) Blood Urea Nitrogen 15 mg/dL (7-18) Creatinine 1.0 MG/DL (0.55-1.30) Estimat Glomerular Filtration Rate > 60 mL/min (>60) Glucose Level 103 MG/DL (74-106) Calcium Level 8.6 MG/DL (8.5-10.1) Current Medications Medications (Trade) Dose Ordered Sig/Rustam Route PRN Reason Start Time Stop Time Status Last Admin Dose Admin Albuterol/ Ipratropium (Albuterol/ Ipratropium) 3 ml Q4H PRN HHN dyspnea 10/15/17 07:00 10/20/17 06:59 10/15/17 14:08 Amlodipine Besylate (Norvasc) 10 mg DAILY ORAL 10/15/17 09:00 11/14/17 08:59 10/17/17 09:10 Aspirin (ASA) 81 mg DAILY ORAL 10/15/17 09:00 11/14/17 08:59 10/17/17 09:18 Atorvastatin Calcium (Lipitor) 10 mg BEDTIME ORAL 10/15/17 21:00 11/14/17 20:59 10/16/17 20:36 Baclofen (Lioresal) 5 mg QID ORAL 10/15/17 09:00 11/14/17 08:59 10/17/17 09:10 Dextrose (Dextrose 50%) 25 ml STAT PRN IV Hypoglycemia 10/15/17 07:00 11/14/17 06:59 Dextrose (Dextrose 50%) 50 ml STAT PRN IV Hypoglycemia 10/15/17 07:45 11/14/17 07:44 Dextrose/Sodium Chloride 1,000 ml @ 60 mls/hr [id number] IV 10/15/17 14:30 11/14/17 14:29 10/16/17 23:31 Heparin Sodium (Porcine) (Heparin 5000 units/ml) 5,000 units EVERY 12 HOURS SUBQ 10/15/17 09:00 11/14/17 08:59 10/17/17 09:11 Lisinopril (Prinivil) 20 mg DAILY ORAL 10/15/17 09:00 11/14/17 08:59 10/17/17 09:10 Lorazepam (Ativan 2mg/ml 1ml) 0.5 mg Q4H PRN IV For Anxiety 10/15/17 07:00 10/22/17 06:59 Metoprolol Succinate (Toprol XL) 50 mg BID ORAL 10/15/17 09:00 11/14/17 08:59 10/17/17 09:10 Nitroglycerin (Ntg) 0.4 mg Q5M X 3 DOSES PRN SL Prn Chest Pain 10/15/17 07:00 11/14/17 06:59 Ondansetron HCl (Zofran) 4 mg Q6H PRN IVP Nausea & Vomiting 10/15/17 07:00 11/14/17 06:59 Promethazine HCl/ Codeine (Phenergan with Codeine) 5 ml Q6H PRN ORAL cough 10/15/17 07:00 11/14/17 06:59 Risperidone (RisperDAL) 1 mg BID ORAL 10/15/17 09:00 11/14/17 08:59 10/17/17 09:10 Temazepam (Restoril) 15 mg HSPRN PRN ORAL Insomnia 10/15/17 07:00 10/22/17 06:59 Valproic Acid (Depakene) 250 mg BID ORAL 10/15/17 09:00 11/14/17 08:59 10/17/17 09:09 Sandra Arechiga M.D. Oct 17, 2017 10:59
[2017-10-17 12:00] VITALS: BP 132/76
--- NOTE | 2017-10-17 12:34 | Pulmonology Progress Note ---
Assessment/Plan Problems: (1) Acute bronchitis (2) At high risk for aspiration (3) COPD (chronic obstructive pulmonary disease) (4) UTI (urinary tract infection) (5) Sepsis (6) Hypertension (7) Left-sided weakness (8) History of CVA (cerebrovascular accident) Assessment/Plan eating well respiratory treatment iv abx check cultures doing better f/u nutrition recommendations check electrolytes pt/ot dvt prophylaxis. Subjective ROS Limited/Unobtainable: No Constitutional: Reports: no symptoms HEENT: Repors: no symptoms Allergies: Coded Allergies: No Known Allergies (Unverified , 08/19/17) Objective Last 24 Hour Vital Signs Date Time Temp Pulse Resp B/P (MAP) Pulse Ox O2 Delivery O2 Flow Rate FiO2 10/17/17 09:10 72 133/82 10/17/17 09:10 133/82 10/17/17 09:10 72 133/82 10/17/17 08:40 86 16 Room Air 21 10/17/17 08:00 98.4 72 18 133/82 98 Room Air 98.4 10/17/17 04:16 97.2 77 16 114/74 96 Room Air 97.2 10/17/17 00:00 97.9 75 20 133/79 95 Room Air 97.9 10/16/17 20:38 85 16 Room Air 21 10/16/17 20:00 98.1 92 20 109/65 95 Room Air 98.1 10/16/17 18:27 89 114/73 10/16/17 16:00 97.9 89 20 114/73 100 97.9 Intake and Output 10/16/17 10/17/17 19:00 07:00 Intake Total 480 ml 540 ml Output Total 1500 ml 900 ml Balance -1020 ml -360 ml Intake Oral 480 ml 120 ml IV Total 420 ml Output Urine Total 1500 ml 900 ml General Appearance: WD/WN HEENT: normocephalic Respiratory/Chest: chest wall non-tender, lungs clear Cardiovascular: normal peripheral pulses, normal rate Abdomen: normal bowel sounds, soft, non tender Genitourinary: normal external genitalia Extremities: no clubbing Skin: no lesions Microbiology Date/Time Source Procedure Growth Status 10/15/17 02:25 Blood Blood Culture - Preliminary NO GROWTH AFTER 48 HOURS Resulted 10/15/17 02:15 Blood Blood Culture - Preliminary NO GROWTH AFTER 48 HOURS Resulted 10/15/17 02:18 Nasal Nares MRSA Culture - Final NO METHICILLIN RESISTANT STAPH AUREUS... Complete 10/15/17 02:18 Rectum VRE Culture - Final NO VANCOMYCIN RESISTANT ENTEROCOCCUS ... Complete Laboratory Tests 10/17/17 04:55: White Blood Count 9.8, Red Blood Count 4.53L, Hemoglobin 12.7L, Hematocrit 37.7L , Mean Corpuscular Volume 83, Mean Corpuscular Hemoglobin 28.0, Mean Corpuscular Hemoglobin Concent 33.7, Red Cell Distribution Width 12.8, Platelet Count 215, Mean Platelet Volume 7.9, Neutrophils (%) (Auto) 47.4, Lymphocytes (% ) (Auto) 41.8, Monocytes (%) (Auto) 6.9, Eosinophils (%) (Auto) 3.1H, Basophils (%) (Auto) 0.9, Sodium Level 144, Potassium Level 3.9, Chloride Level 110H, Carbon Dioxide Level 28, Anion Gap 6, Blood Urea Nitrogen 15, Creatinine 1.0, Estimat Glomerular Filtration Rate > 60, Glucose Level 103, Calcium Level 8.6 Current Medications Medications (Trade) Dose Ordered Sig/Rustam Route PRN Reason Start Time Stop Time Status Last Admin Dose Admin Albuterol/ Ipratropium (Albuterol/ Ipratropium) 3 ml Q4H PRN HHN dyspnea 10/15/17 07:00 10/20/17 06:59 10/15/17 14:08 Amlodipine Besylate (Norvasc) 10 mg DAILY ORAL 10/15/17 09:00 11/14/17 08:59 10/17/17 09:10 Aspirin (ASA) 81 mg DAILY ORAL 10/15/17 09:00 11/14/17 08:59 10/17/17 09:18 Atorvastatin Calcium (Lipitor) 10 mg BEDTIME ORAL 10/15/17 21:00 11/14/17 20:59 10/16/17 20:36 Baclofen (Lioresal) 5 mg QID ORAL 10/15/17 09:00 11/14/17 08:59 10/17/17 09:10 Dextrose (Dextrose 50%) 25 ml STAT PRN IV Hypoglycemia 10/15/17 07:00 11/14/17 06:59 Dextrose (Dextrose 50%) 50 ml STAT PRN IV Hypoglycemia 10/15/17 07:45 11/14/17 07:44 Dextrose/Sodium Chloride 1,000 ml @ 60 mls/hr [id number] IV 10/15/17 14:30 11/14/17 14:29 10/16/17 23:31 Heparin Sodium (Porcine) (Heparin 5000 units/ml) 5,000 units EVERY 12 HOURS SUBQ 10/15/17 09:00 11/14/17 08:59 10/17/17 09:11 Lisinopril (Prinivil) 20 mg DAILY ORAL 10/15/17 09:00 11/14/17 08:59 10/17/17 09:10 Lorazepam (Ativan 2mg/ml 1ml) 0.5 mg Q4H PRN IV For Anxiety 10/15/17 07:00 10/22/17 06:59 Metoprolol Succinate (Toprol XL) 50 mg BID ORAL 10/15/17 09:00 11/14/17 08:59 10/17/17 09:10 Nitroglycerin (Ntg) 0.4 mg Q5M X 3 DOSES PRN SL Prn Chest Pain 10/15/17 07:00 11/14/17 06:59 Ondansetron HCl (Zofran) 4 mg Q6H PRN IVP Nausea & Vomiting 10/15/17 07:00 11/14/17 06:59 Promethazine HCl/ Codeine (Phenergan with Codeine) 5 ml Q6H PRN ORAL cough 10/15/17 07:00 11/14/17 06:59 Risperidone (RisperDAL) 1 mg BID ORAL 10/15/17 09:00 11/14/17 08:59 10/17/17 09:10 Temazepam (Restoril) 15 mg HSPRN PRN ORAL Insomnia 10/15/17 07:00 10/22/17 06:59 Valproic Acid (Depakene) 250 mg BID ORAL 10/15/17 09:00 11/14/17 08:59 10/17/17 09:09 Dahlia Lord MD Oct 17, 2017 12:33
--- NOTE | 2017-10-17 14:04 | General Progress Note ---
Assessment/Plan Problem List: (1) UTI (urinary tract infection) ICD Codes: N39.0 - Urinary tract infection, site not specified SNOMED: 08514838 (2) Sepsis ICD Codes: A41.9 - Sepsis, unspecified organism SNOMED: 94007206 (3) History of CVA (cerebrovascular accident) ICD Codes: Z86.73 - Personal history of transient ischemic attack (TIA), and cerebral infarction without residual deficits SNOMED: 311156072 (4) Left-sided weakness ICD Codes: R53.1 - Weakness SNOMED: 321387086 (5) Episode of generalized weakness ICD Codes: R53.1 - Weakness SNOMED: 89226493 Status: stable, progressing Assessment/Plan ot pt diet abx dc if clear Subjective Constitutional: Reports: weakness Allergies: Coded Allergies: No Known Allergies (Unverified , 08/19/17) All Systems: reviewed and negative except above Subjective calm in bed Objective Last 24 Hour Vital Signs Date Time Temp Pulse Resp B/P (MAP) Pulse Ox O2 Delivery O2 Flow Rate FiO2 10/17/17 12:00 98.6 79 20 132/76 98 Room Air 98.6 10/17/17 09:10 72 133/82 10/17/17 09:10 133/82 10/17/17 09:10 72 133/82 10/17/17 08:40 86 16 Room Air 21 10/17/17 08:00 98.4 72 18 133/82 98 Room Air 98.4 10/17/17 04:16 97.2 77 16 114/74 96 Room Air 97.2 10/17/17 00:00 97.9 75 20 133/79 95 Room Air 97.9 10/16/17 20:38 85 16 Room Air 21 10/16/17 20:00 98.1 92 20 109/65 95 Room Air 98.1 10/16/17 18:27 89 114/73 10/16/17 16:00 97.9 89 20 114/73 100 97.9 Intake and Output 10/16/17 10/17/17 19:00 07:00 Intake Total 480 ml 540 ml Output Total 1500 ml 900 ml Balance -1020 ml -360 ml Intake Oral 480 ml 120 ml IV Total 420 ml Output Urine Total 1500 ml 900 ml Laboratory Tests 10/17/17 04:55: White Blood Count 9.8, Red Blood Count 4.53L, Hemoglobin 12.7L, Hematocrit 37.7L , Mean Corpuscular Volume 83, Mean Corpuscular Hemoglobin 28.0, Mean Corpuscular Hemoglobin Concent 33.7, Red Cell Distribution Width 12.8, Platelet Count 215, Mean Platelet Volume 7.9, Neutrophils (%) (Auto) 47.4, Lymphocytes (% ) (Auto) 41.8, Monocytes (%) (Auto) 6.9, Eosinophils (%) (Auto) 3.1H, Basophils (%) (Auto) 0.9, Sodium Level 144, Potassium Level 3.9, Chloride Level 110H, Carbon Dioxide Level 28, Anion Gap 6, Blood Urea Nitrogen 15, Creatinine 1.0, Estimat Glomerular Filtration Rate > 60, Glucose Level 103, Calcium Level 8.6 Height (Feet): 5 Height (Inches): 10.00 Weight (Pounds): 208 General Appearance: lethargic, confused EENT: normal ENT inspection Neck: normal alignment Cardiovascular: normal peripheral pulses, normal rate, regular rhythm Respiratory/Chest: chest wall non-tender, lungs clear, normal breath sounds Abdomen: normal bowel sounds, non tender, soft Extremities: normal inspection Edema: no edema noted Arm (L), no edema noted Arm (R), no edema noted Leg (L), no edema noted Leg (R), no edema noted Pedal (L), no edema noted Pedal (R), no edema noted Generalized Neurologic: motor weakness Skin: normal pigmentation, warm/dry Biju Santos DO Oct 17, 2017 14:04
--- NOTE | 2017-10-17 15:15 | Cardiology Report ---
APPROVED REPORT EKG Measurement Heart [id number] Sinus tachycardia Abnormal ECG
[2017-10-17] MEDS ORDERED: HEPARIN SO5000 UNIT2 SUBQ (15:45)
[2017-10-17 16:00] VITALS: BP 128/72
[2017-10-17] MEDS ORDERED: D5 1/2NS 1000ml IV ONE (16:31)
--- NOTE | 2017-10-17 23:38 | Cardiology Progress Note ---
Assessment/Plan Assessment/Plan 1. Presyncope with dizziness and lightheadedness, generalized weakness. This could be secondary to hypovolemia or could be the effect of lowering blood pressure by blood pressure medication. 2. History of atherosclerotic heart disease. A 2D echocardiography from August this year in this facility showed normal LV systolic function with LVEF approximately 55% to 60%. No wall motion abnormalities. 3. History of cerebrovascular accident, continue atorvastatin 80 and aspirin 81 daily. 4. History of hypertension, continue amlodipine and metoprolol. Subjective Subjective Not on the telemetry unit. Denies chest pain or SOB. Objective Last 24 Hour Vital Signs Date Time Temp Pulse Resp B/P (MAP) Pulse Ox O2 Delivery O2 Flow Rate FiO2 10/17/17 16:00 97.8 76 20 128/72 97 Room Air 97.8 10/17/17 12:00 98.6 79 20 132/76 98 Room Air 98.6 10/17/17 09:10 72 133/82 10/17/17 09:10 133/82 10/17/17 09:10 72 133/82 10/17/17 08:40 86 16 Room Air 21 10/17/17 08:00 98.4 72 18 133/82 98 Room Air 98.4 10/17/17 04:16 97.2 77 16 114/74 96 Room Air 97.2 10/17/17 00:00 97.9 75 20 133/79 95 Room Air 97.9 Intake and Output 10/16/17 10/17/17 19:00 07:00 Intake Total 480 ml 540 ml Output Total 1500 ml 900 ml Balance -1020 ml -360 ml Intake Oral 480 ml 120 ml IV Total 420 ml Output Urine Total 1500 ml 900 ml Laboratory Tests Test 10/17/17 04:55 White Blood Count 9.8 K/UL (4.8-10.8) Red Blood Count 4.53 M/UL (4.70-6.10) L Hemoglobin 12.7 G/DL (14.2-18.0) L Hematocrit 37.7 % (42.0-52.0) L Mean Corpuscular Volume 83 FL (80-99) Mean Corpuscular Hemoglobin 28.0 PG (27.0-31.0) Mean Corpuscular Hemoglobin Concent 33.7 G/DL (32.0-36.0) Red Cell Distribution Width 12.8 % (11.6-14.8) Platelet Count 215 K/UL (150-450) Mean Platelet Volume 7.9 FL (6.5-10.1) Neutrophils (%) (Auto) 47.4 % (45.0-75.0) Lymphocytes (%) (Auto) 41.8 % (20.0-45.0) Monocytes (%) (Auto) 6.9 % (1.0-10.0) Eosinophils (%) (Auto) 3.1 % (0.0-3.0) H Basophils (%) (Auto) 0.9 % (0.0-2.0) Sodium Level 144 MMOL/L (136-145) Potassium Level 3.9 MMOL/L (3.5-5.1) Chloride Level 110 MMOL/L (98-107) H Carbon Dioxide Level 28 MMOL/L (21-32) Anion Gap 6 mmol/L (5-15) Blood Urea Nitrogen 15 mg/dL (7-18) Creatinine 1.0 MG/DL (0.55-1.30) Estimat Glomerular Filtration Rate > 60 mL/min (>60) Glucose Level 103 MG/DL (74-106) Calcium Level 8.6 MG/DL (8.5-10.1) Microbiology Date/Time Source Procedure Growth Status 10/15/17 02:25 Blood Blood Culture - Preliminary NO GROWTH AFTER 48 HOURS Resulted 10/15/17 02:15 Blood Blood Culture - Preliminary NO GROWTH AFTER 48 HOURS Resulted 10/15/17 02:18 Nasal Nares MRSA Culture - Final NO METHICILLIN RESISTANT STAPH AUREUS... Complete 10/15/17 02:18 Rectum VRE Culture - Final NO VANCOMYCIN RESISTANT ENTEROCOCCUS ... Complete Objective HEENT: Atraumatic and normocephalic. Anicteric. Pupils are equal, round, and reactive to light and accommodation. Extraocular muscles intact. NECK: JVP is less than 5 cm. No carotid bruit. Carotid upstroke is 2+ bilaterally. CARDIOVASCULAR: Normal S1, S2. Regular rate and rhythm. No murmurs, gallops, or rubs. PMI is at fourth intercostal space in midclavicular line. LUNGS: Clear to auscultation bilaterally. ABDOMEN: Soft, nontender, and nondistended. No hepatosplenomegaly. Positive bowel sounds. EXTREMITIES: No evidence of edema, clubbing, or cyanosis. There is a flexion contraction of the right upper extremity. Murray Hamm MD Oct 17, 2017 23:38
--- NOTE | 2017-10-18 03:30 | Consultation ---
DATE OF CONSULTATION: 10/16/2017 NOTE: POOR AUDIO CONSULTING PHYSICIAN: Kasey Gonzalez M.D. TREATING ATTENDING PHYSICIAN: Biju Santos D.O. HISTORY OF PRESENT ILLNESS: The patient is a 67-year-old male patient. [facility] patient is [facility]. The patient was admitted to the hospital for weakness, UTI, sepsis, confusion, and some depression. For these reasons, he was referred for psychotherapeutic services. This clinician assessed this patient. The patient's depression due to his current medical condition. He is a very poor historian and is confused, disoriented, and helpless at this time. There is no indication of suicidal or homicidal thoughts of ideation. The patient is very weak and tired. PAST MEDICAL HISTORY: History of hypertension, CVA, and COPD. ALLERGIES: The patient has no known drug allergies. SUBSTANCE ABUSE HISTORY: There is no history of alcohol use, illicit substance use, or smoking cigarette. PAST PSYCHIATRIC HISTORY: positive for depression, has been treated with psychotropic medications in the past. SOCIAL HISTORY: The patient is a 67-year-old male. The patient is from [facility]. Financially sustained through [employer]. MENTAL STATUS EXAMINATION: The patient is alert and oriented to person and place. Mood is dysphoric. Affect is blunted. Thought process is disorganized. Thought content, confused. The patient has poor attention and concentration. Poor insight, judgment, and impulse control. DIAGNOSES: [place] I major depressive disorder without psychotic features. [place] II Deferred. [place] III Per History and Physical. PLAN: assessed this patient. . Provide the patient with supportive psychotherapy. Encouraging the patient to participate in treatment milieu. Working . This clinician has reviewed the patient's chart and discussed the treatment with treatment team. Kasey Gonzalez PsyD. DR: NASREEN JOB#: [id number] CC:
--- NOTE | 2017-10-18 07:50 | Discharge Summary ---
Discharge Summary Discharge Summary _ DATE OF ADMISSION: 10/15/2017 DATE OF DISCHARGE: 10/17/2017 REASON FOR ADMISSION: 67 years old male with past medical history significant for seizure disorder, CVA with left-sided weakness, coronary artery disease, hypertension, COPD, schizophrenia, hyperlipidemia was sent from the half-way facility for evaluation due to cough and congestion for one day. Patient also reported generalized weakness . No chest pain, no fevers. Vital signs stable , laboratory workup with leukocytosis WBC 13.5, stable hemoglobin and hematocrit , lactic acid 1.0. Urinalysis revealed no evidence of urinary tract infection. Chest x-ray revealed no acute cardiopulmonary pathology. Patient admitted with diagnosis of leukocytosis, possible sepsis ,flulike symptoms ,COPD, CVA with left-sided weakness, hypertension, generalized weakness. CONSULTANTS: hearing aid assembly supervisor Dr. Hamm pulmonary Dr. Lord ID specialist Dr. Elder Psychologist Dr. Gonzalez [facility] COURSE: Patient admitted to medical surgical floor. Patient started on the IV fluids. Infectious disease specialist and discount clerk consults were requested. Licensed [employer] Appraiser seen and evaluated the patient , and diagnosed patient with acute bronchitis. Chest x-ray revealed no acute cardiopulmonary pathology. Supplemental oxygen provided as needed to keep pulse oximetry above 92%, pulmonary toilet provided as needed, antitussive given as needed. Patient was unable to provide sputum specimen since cough was nonproductive. Infectious disease specialist closely followed. Per infectious disease specialist, leukocytosis likely reactive possibly due to hemoconcentration secondary to mild dehydration. Leukocytosis resolved ,no fever ,no evidence of acute infection. Urinalysis with no evidence of UTI, chest x-ray negative. Infectious disease doctor recommended to keep patient off antibiotic and observe closely. Strict aspiration precautions were maintained . Patient declined swallow evaluation . [employer] Interpretive Ranger seen and evaluated the patient. According to hearing aid assembly supervisor, patient likely had episode of presyncope with dizziness and lightheadedness, and generalized weakness. This could be secondary to hypovolemia or could be the effect of lowering blood pressure by blood pressure medications. upon arrival to emergency department blood pressure was stable Patient was initially on IV hydration. Blood pressure was closely monitored and managed with multiply regimen of antihypertensive and remained stable. . Statin was continued along with antiplatelet therapy for secondary CVA prophylaxis Seizure precautions maintained, no evidence of seizure activity while in the hospital . Depakote was continued. Patient was working with physical and occupational therapists. Supportive care provided. DVT prophylaxis provided. Psychiatrist seen and evaluated patient , and diagnosed patient with major depressive disorder without psychotic features. Supportive therapy and reality orientation provided. Patient clinically improved and was stable for discharge to half-way facility for continuation of care. FINAL DIAGNOSES: Acute bronchitis Presyncope with dizziness and lightheadedness ( probably due todehydration versus effect of antihypertenive emdicatiosn COPD Leukocytosis, resolved Aspiration risk History of CVA with left-sided weakness Hypertension Hyperlipidemia Major depressive disorder without psychotic features DISCHARGE MEDICATIONS: See Medication Reconciliation list. DISCHARGE INSTRUCTIONS: Patient was discharged to half-way facility; follow-up with medical doctor at the facility I have been assigned to dictate discharge summary for this account. I was not involved in the patient's management. Leola Maddox NP Oct 18, 2017 07:50
== END 2017-10-17 17:17 | DRG 144 ==
LOC: EDBD 00:31 → EMR 01:15 → 3E 02:10 → EDBEDREQ 03:26
DX: J20.9 Acute bronchitis, unspecified (principal); I69.354 Hemiplegia and hemiparesis following cerebral infarction affecting left non-dominant side; J44.9 Chronic obstructive pulmonary disease, unspecified; R55 Syncope and collapse; R42 Dizziness and giddiness; E86.0 Dehydration; I10 Essential (primary) hypertension; E78.5 Hyperlipidemia, unspecified; F32.9 Major depressive disorder, single episode, unspecified; I25.10 Atherosclerotic heart disease of native coronary artery without angina pectoris; G40.909 Epilepsy, unspecified, not intractable, without status epilepticus
CPT/HCPCS: 36415; 71045; 80048; 80053; 81003; 83605; 83735; 84100; 85025; 87040; 87081; 93005; 94640; 94664; 99285; J7620